=== PATIENT | female | born 1935 | race Caucasian/White ===

== ENCOUNTER 2016-06-18 16:47 | Emergency (ER) | payer MEDICARE ==
[2016-06-18 17:20] LABS: Hemoglobin 11.2 gm/dL (12.5-16.0); Mean Corpuscular Hemoglobin 27.1 pg (27-31); Mean Corpuscular Hgb Conc 31.1 g/dl (32-36); Mean Platelet Volume 8.7 fl (6.0-9.5); Neutrophil # 10.8 K/mm3 (1.3-6.0); Neutrophil % 82.3 % (42-75.0); Platelet Count 239 K/mm3 (150-450); Red Blood Count 4.14 M/mm3 (4.2-5.4); Red Cell Distribution Width 14.6 % (11.5-14.0); White Blood Count 13.1 K/mm3 (4.0-10.5)
--- NOTE | 2016-06-18 17:24 | ERNOTE ---
Dyspnea - General Presenting Symptoms: shortness of breath Time Seen by Provider: 06/18/16 17:06 Source: patient, family Exam Limitations: no limitations - Immun/Allergies/Home Medications Immunizations: IMMUNIZATION HX Immunizations Up to Date Yes History of Influenza Vaccine Yes Hx Pneumococcal Vaccination No Allergies/Adverse Reactions: Allergies ibuprofen Adverse Reaction (Verified 06/18/16 16:56) Home Medications: HOME MEDICATIONS Acetaminophen [Mapap] 500 mg PO DAILY 05/20/14 [Last Taken 05/20/14 12:00] Albuterol Sulfate [Proair Hfa] 2 puff IH Q4H PRN 05/20/14 [Last Taken Unknown] Ascorbic Acid [Vitamin C] 250 mg PO DAILY 05/20/14 [Last Taken 05/20/14 07:00] Aspirin [Aspirin Chewable] 81 mg PO DAILY 05/20/14 [Last Taken 05/20/14 07:00] Budesonide/Formoterol Fumarate [Symbicort 160-4.5 Mcg Inhaler] 2 puff IH BID 12/25 [Last Taken 05/20/14 17:00] Escitalopram Oxalate [Lexapro] 10 mg PO BID 05/20/14 [Last Taken 05/20/14 17:00] Isosorbide Mononitrate [Imdur] 120 mg PO BID 05/20/14 [Last Taken 05/20/14 07:00 ] Metoprolol Succinate [Toprol Xl] 50 mg PO DAILY 05/20/14 [Last Taken 05/20/14 07 :00] Pantoprazole Sodium [Protonix] 40 mg PO DAILY 05/20/14 [Last Taken 05/20/14 07: 00] Potassium Chloride [Klor-Con 10] 10 meq PO DAILY 05/20/14 [Last Taken 05/20/14 07:00] Simvastatin [Zocor] 20 mg PO HS 05/20/14 [Last Taken 05/20/14 20:00] Tiotropium [place] [Spiriva] 1 cap IH DAILY 05/20/14 [Last Taken 05/20/14 08:00] Ubidecarenone [Coenzyme Q10] 1 cap PO DAILY 05/20/14 [Last Taken 05/20/14 07:00] amLODIPine BESYLATE [Norvasc] 5 mg PO DAILY 05/20/14 [Last Taken 05/20/14 07:00] hydrOXYzine HCL [Atarax] 25 mg PO HS 05/20/14 [Last Taken 05/20/14 20:00] traZODone HCL [Desyrel] 50 mg PO HS PRN 05/20/14 [Last Taken 05/20/14 20:00] Calcium Carbonate [Tums] 500 mg PO DAILY 05/21/14 [Last Taken 05/20/14 07:00] Multivitamin [Multi-Vitamin Daily] 1 each PO DAILY 05/21/14 [Last Taken 07:00] Albuterol Sulfate/Ipratropium [Duoneb 2.5-0.5MG/3ML Soln] 3 ml IH Q6HRT #14 nebu 05/24/14 [Last Taken Unknown] Clorazepate Dipotassium [Tranxene] 3.75 mg PO HS 06/18/16 [Last Taken Unknown] Levofloxacin [Levaquin] 500 mg PO DAILY #7 tab 06/18/16 [Last Taken Unknown] Zolpidem Tartrate [Ambien] 2.5 mg PO HS PRN 06/18/16 [Last Taken Unknown] predniSONE [Prednisone] 3 tab PO DAILY #18 tab 06/18/16 [Last Taken Unknown] - History of Present Illness Narrative: Patient has a history of COPD and is on home O2 (2 1/2 liter at rest 3l with activity). 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 He started her on prednisone qod and changed her spiriva to another inhaler. She has been off antibiotics for about two weeks, states that she gets worse a lot when she gets off antibiotics. 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 Denies: fever/chills, sweating, chest pain/discomfort Prior Treatment: Reports: recently seen, previous episodes. Denies: currently on antibiotics Review of Systems - Review of Systems Constitutional: Present: See HPI. Absent: fever ENT: Present: nasal drainage. Absent: sore throat Respiratory: Present: See HPI, shortness of breath, cough Cardiology: Present: See HPI. Absent: chest pain Gastrointestinal/Abdominal: Absent: nausea, vomiting, abdominal pain Neurological: Present: headache - Patient's Past Medical History Patient History - Medical: Anxiety, GERD, Other Patient History - Cardiac/Respiratory: Asthma, CHF, COPD, Hypertension, Myocardial Infarction, Home O2 Use Patient History - Cancer: Breast Patient History - Surgical Procedures: Cancer Surgery, Cataracts, Other Patient History - Other: None - Social History Living Situations: home Abuse History: No History of abuse Psych History: Hx of Anxiety, Hx of Depression Smoking Status: Former smoker - quit 2006, 50py Alcohol Use: none Drug Use: none - Immunizations Immunizations Up to Date: Yes Hx Pneumococcal Vaccination: No History of Influenza Vaccine: Yes Physical Exam - Physical Exam General Appearance: Present: wd/wn, alert, no apparent distress Ears, Nose, Throat: Present: normal pharynx Respiratory: Present: respiratory distress - increased rate, decreased breath sounds - very Cardiovascular/Chest: Present: regular rate, rhythm Gastrointestinal/Abdominal: Present: nontender, nondistended, soft Extremity Exam: Present: no edema Neurological Exam: Present: alert, oriented, normal mood/affect Skin Exam: Present: normal color, warm/dry ED Progress - Results and Orders Patient's Lab Results:: I have reviewed the patient's lab results. - Vital Signs Patient's Vital Signs:: I have reviewed the patient's vital signs. Vital Signs: Vital Signs 06/18/16 16:49 Temperature 37.5 C Pulse Rate 107 H Respiratory 24 H Rate Blood Pressure 173/101 O2 Sat by Pulse 98 Oximetry - EKG EKG: NSR - sinustachycardia, unchanged from 05/2014 ecept for rate, other - enlarged P-waves EKG read: Interp. by me - X-Ray X-Ray #1 X-Ray: chest - hyperinflated, chronic changes, no infiltrate Interpretation: Interp. by me - Progress/Reassessment Chief Complaint: Dyspnea Progress Note-Subjective: 06/18/16 18:28 discussed results with patient and family 06/18/16 18:33 per [facility] pharmacy, patient had levaquin in April, doxycycline in May Departure Clinical Impression: COPD exacerbation - Departure Disposition: Home self-care Condition: Fair Instructions: Chronic Obstructive Pulmonary Disease Exacerbation, [id number] Additional Instructions: call Dr Meredith tomorrow for a follow up appointment Referrals: Alex Meredith MD [Associate] - Prescriptions: Levofloxacin [Levaquin] 500 mg PO DAILY #7 tab predniSONE [Prednisone] 3 tab PO DAILY #18 tab
[2016-06-18 17:33] LABS: Albumin * 3.7 gm/dl (3.4-5.0); Anion Gap 13.3 mmol/L (6.8-13.8); BUN/Creatinine Ratio 15.9 (9.0-21.6); Bilirubin, Total 0.3 mg/dL (0.0-1.1); Ca. Corrected For Albumin 9.1 mg/dL (8.4-10.2); Calcium * 9.2 mg/dL (7.9-10.9); Carbon Dioxide 29.1 mmol/L (24-32.6); Potassium 4.4 mmol/L (3.4-4.6); Total Protein 7.5 gm/dL (6.2-8.2)
[2016-06-18 17:40] LABS: BNP * 454 pg/mL (5-550); Troponin I Less than 0.017 ng/ml (0.00-0.10)
[2016-06-18] MEDS ORDERED: predniSONE 20 MG TABLET PO ONE (18:27)
[2016-06-18] MEDS ORDERED: predniSONE 20 MG TABLET ONE (18:32)
[2016-06-18] MEDS ORDERED: LEVOFLOXACIN 500 MG TABLET PO ONE (18:32)
[2016-06-18] MEDS ORDERED: LEVOFLOXACIN 500 MG TABLET ONE (18:32)
[2016-06-18 18:59] VITALS: BP 150/87
== END 2016-06-18 18:55 | disposition home or self-care (01) ==
LOC: ER 16:47
DX: J44.1 Chronic obstructive pulmonary disease with (acute) exacerbation (principal); Z85.3 Personal history of malignant neoplasm of breast; K21.9 Gastro-esophageal reflux disease without esophagitis; J45.909 Unspecified asthma, uncomplicated; F41.9 Anxiety disorder, unspecified; F32.9 Major depressive disorder, single episode, unspecified

== ENCOUNTER 2016-11-01 11:18 | Emergency (ER) | payer MEDICARE ==
[2016-11-01 11:53] LABS: Hematocrit 37.4 % (37.0-47.0); Hemoglobin 11.8 gm/dL (12.5-16.0); Mean Cell Volume 88.6 fl (78-100); Mean Corpuscular Hgb Conc 31.6 g/dl (32-36); Mean Platelet Volume 8.9 fl (6.0-9.5); Neutrophil # 11.8 K/mm3 (1.3-6.0); Platelet Count 294 K/mm3 (150-450); Red Blood Count 4.22 M/mm3 (4.2-5.4); White Blood Count 13.1 K/mm3 (4.0-10.5)
[2016-11-01] MEDS ORDERED: LEVALBUTEROL HCL 1.25 MG/3 ML AMPUL IH ONE ×2 (12:05→12:14)
[2016-11-01] MEDS ORDERED: predniSONE 20 MG TABLET PO ONE (12:05)
[2016-11-01 12:11] LABS: ALT 19 U/L (19-67); AST 17 U/L (0-48); Albumin * 3.6 gm/dl (3.4-5.0); Alkaline Phosphatase * 57 U/L (50-170); Anion Gap 12.1 mmol/L (6.8-13.8); BNP * 92 pg/mL (5-550); BUN/Creatinine Ratio 15.9 (9.0-21.6); Bilirubin, Total 0.4 mg/dL (0.0-1.1); Blood Urea Nitrogen 11 mg/dL (3-23); Ca. Corrected For Albumin 9.2 mg/dL (8.4-10.2); Calcium * 9.2 mg/dL (7.9-10.9); Carbon Dioxide 27.6 mmol/L (24-32.6); Chloride 98 mmol/L (97-106); Glucose * 129 mg/dL (70-110); Potassium 4.7 mmol/L (3.4-4.6); Sodium 133 mmol/L (132-142); Total Protein 7.3 gm/dL (6.2-8.2); Troponin I Less than 0.017 ng/ml (0.00-0.10)
[2016-11-01] MEDS ORDERED: predniSONE 20 MG TABLET ONE (12:14)
--- OUTSIDE RECORDS SUMMARY | 2016-11-01 12:59 | XMS REPORT | Continuity of Care Document ---
:1935 Author Organization [facility] [place] [address] Care Team Providers Name Role Phone Shavonne Yeager Primary Care Provider [phone] Source Comments This disclosure is being made pursuant to the [employer] program and maynot contain all information available regarding this patient.[facility] Active Allergies and Adverse Reactions Allergen Noted Date Severity Reactions Comments Ibuprofen 09/26/2015 High Other (See Comments),Bleeding Current Medications Be aware that medications may not be up to date as of this document. Alwaysverify current medications with the patient. Prescription Sig. Disp. Refills Start Date End Date Status acetaminophen (TYLENOL) Take 1,000 mg Active 500 MG tablet by mouth 3 (three) times daily. aspirin low dose 81 MG Chew 81 mg by Active CHEW mouth daily. clorazepate (TRANXENE) Take 7.5 mg by Active 7.5 MG tablet mouth 2 (two) times daily. diphenhydrAMINE Take 50 mg by Active (BENADRYL) 50 MG capsule mouth as needed. guaifenesin (ROBITUSSIN) Take 10 mLs by 05/14/2014 Active 100 MG/5ML syrup mouth as needed. isosorbide mononitrate Take 60 mg by Active (IMDUR) 120 MG 24 hr mouth 2 (two) tablet times daily. 1 and 1/2 tabs in am and 1/2 tab at night metoprolol succinate Take 50 mg by Active (TOPROL-XL) 50 MG 24 hr mouth daily. tablet pantoprazole (PROTONIX) Take 40 mg by Active 40 MG tablet mouth daily. potassium chloride Take 10 mEq by Active (K-TAB, KLOR-CON) 10 MEQ mouth daily. tablet simvastatin (ZOCOR) 20 MG Take 20 mg by Active tablet mouth nightly. trolamine salicylate Apply Active (ASPERCREME) 10 % cream topically as needed. SPIRIVA RESPIMAT 2.5 2 puffs once 12/16/2015 Active MCG/ACT AERS inhaler daily. zolpidem (AMBIEN) 5 MG 7.5 mg as 12/19/2015 Active tablet needed. predniSONE (DELTASONE) 10 10 mg every 07/06/2016 Active MG tablet other day. BREO ELLIPTA 200-25 1 puff once 06/25/2016 Active MCG/INH AEPB inhaler daily. ipratropium-albuterol 06/27/2016 Active (DUONEB) 0.5-2.5 (3) MG/3ML SOLN clobetasol (TEMOVATE) APPLY TOPICALLY 4 09/12/2016 Active 0.05 % external solution TWO TIMES A DAY TO THE AFFECTED SCALP AREA NEEDED azithromycin (ZITHROMAX) Take 250 mg by 09/06/2016 Active 250 MG tablet mouth 3 (three) times a week. Multiple Take 1 tablet Active Vitamins-Minerals by mouth daily. (MULTIVITAMIN ADULT PO) albuterol (PROAIR Inhale 2 puffs Active HFA;PROVENTIL into the lungs HFA;VENTOLIN HFA) 108 (90 every 4 (four) Base) MCG/ACT inhaler hours as needed for Wheezing. clopidogrel (PLAVIX) 75 09/26/2016 Active MG tablet fluconazole (DIFLUCAN) 10/03/2016 Active 150 MG tablet HYDROcodone-acetaminophen 10/03/2016 Active (NORCO) 5-325 MG per tablet ketoconazole (NIZORAL) 2 10/03/2016 Active % shampoo MethylPREDNISolone Follow package 1 Package 0 10/06/2016 Active (MEDROL) 4 MG dosepak directions. doxycycline (VIBRA-TABS) Take 1 tab oral 28 tablet 0 10/06/2016 Active 100 MG tablet daily for 10 days Hospital, Clinic, or Other Ordered Dose Route Frequency Start Date End Date Status Facility Administered Medication methylPREDNISolone sodium 125mg IM Once 10/06/2016 10/06/2016 Ended succinate (SOLU-MEDROL) injection Active Problems Problem Noted Date Protein-calorie malnutrition, moderate (HCC) 05/19/2014 COPD (chronic obstructive pulmonary disease) (HCC) 05/08/2014 Respiratory failure, rdomj-cr-adhlovi (HCC) 05/07/2014 Most Recent Encounters Date Type Specialty Providers Description 10/06/2016 Office Visit Family Medicine Lissette Rausch, 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 (HCC) (Primary Dx) 10/05/2016 Ophth Exam Ophthalmology Suman Graham 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); Hollenhorst plaque, left eye; 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; Hypertensive retinopathy of both eyes; Artificial lens present; Entropion of right lower eyelid 09/25/2016 Telephone Ophthalmology Annie Blair, COA Advice Only 09/24/2016 Office Visit General Surgery Suman Graham Bilateral carotid artery RMD stenosis (Primary Dx) Gerard Tiwari DO 09/20/2016 Abstract General Surgery Jamilah Rivas RN 09/03/2016 Telephone Ophthalmology Emely Almodovar [facility] Results 08/20/2016 Ophth Exam Ophthalmology Suman Graham 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); Hollenhorst plaque, left eye; 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; Hypertensive retinopathy of both eyes; Artificial lens present; Entropion of right lower eyelid; Blepharitis of upper and lower eyelids of both eyes, unspecified type; Distichiasis 08/20/2016 Telephone Ophthalmology Emely Almodovar [facility] Appointment Social History Tobacco Use Types Packs/Day Years Used Date Former Smoker Quit: 06/01/2006 Smokeless Tobacco: Never Used Alcohol Use Drinks/Week oz/Week Comments No 0 Standard drinks or equivalent 0.0 Last Filed Vital Signs Vital Sign Reading Time Taken Blood Pressure 130/74 10/06/2016 10:25 AM CDT Pulse 81 10/06/2016 10:25 AM CDT Temperature 36 C (96.8 F) 10/06/2016 10:25 AM CDT Respiratory Rate 24 10/06/2016 10:25 AM CDT Height 1.524 m (5') 10/06/2016 10:25 AM CDT Weight 45.36 kg (100 lb) 10/06/2016 10:25 AM CDT Body Mass Index 19.53 10/06/2016 10:25 AM CDT Oxygen Saturation 97% 10/06/2016 10:25 AM CDT Plan of Care Date Type Specialty Providers Description 11/23/2016 Appointment Ophthalmology Suman Graham MD [address] [place] [address] [phone] (Fax) Health Maintenance Due Date Last Done Comments Tetanus/Pertussis (1 - Tdap) 1953 Well Adult Visit 1984 Zoster Vaccine 60+ 1994 Bone Density 12/30/1999 Pneumococcal Low/Medium Risk 65+ (1 of 2 - PCV13) 12/30/1999 Influenza Immunization (#1) 2016 Results from Last 3 Months Intravitreal Injection, Pharmacologic Agent - OS - Left Eye (10/05/2016 11:46 AM ) Narrative Emely Almodovar 10/05/2016 11:46 AM OS Avastin Intravit Inj - Left Eye Date/Time: 10/05/2016 11:35 AM Performed by: SUMAN GRAHAM Authorized by: SUMAN GRAHAM CAROTID DUPLEX SCAN BILAT (08/31/2016 12:05 PM) [place] [address] Carotid Duplex Report Patient Name: LISSETTE BROWN LPatient ID: [id number] : [id number] Date: 08/31/2016 12:05:49 PM Gender: FAccession #: [id number] BSA: Weight(Kg): Account #: Procedures: Arterial Report: A carotid duplex ultrasound was performed bilaterally using Pulse Wave Color Flow Doppler and B-mode vascular imaging. Indications: hollenhorst plaque lt eye. Measurements: Right Carotid MeasurementValueNormal Range RT CCA PRX PSV 57.3 cm/secs RT CCA PRX EDV 13.0 cm/secs RT CCA MID PSV 65.0 cm/secs RT CCA MID EDV 16.7 cm/secs RT CCA DIST PSV55.1 cm/secs RT CCA DIST EDV15.2 cm/secs RT ICA PROX PSV44.0 cm/secs RT ICA PROX EDV16.8 cm/secs RT ICA MID PSV 73.9 cm/secs RT ICA MID EDV 25.4 cm/secs RT ICA DIST PSV69.3 cm/secs RT ICA DIST EDV19.5 cm/secs RT VERT PSV34.6 cm/secs RT VERT EDV10.6 cm/secs RT ICA/CCA 1.3ratio Left Carotid MeasurementValueNormal Range LT CCA PRX PSV 55.7 cm/sec LT CCA PRX EDV 14.3 cm/sec LT CCA MID PSV 59.6 cm/sec LT CCA MID EDV 14.3 cm/sec LT CCA DIST PSV47.4 cm/sec LT CCA DIST EDV14.8 cm/sec LT ICA PROX PSV47.0 cm/sec LT ICA PROX EDV13.9 cm/sec LT ICA MID PSV 57.5 cm/sec LT ICA MID EDV 16.2 cm/sec LT ICA DIST PSV45.1 cm/sec LT ICA DIST EDV15.1 cm/sec LT VERT PSV24.8 cm/secs LT VERT EDV6.3cm/secs LT ICA/CCA 1.2ratio Findings: Rt Vertebral Artery: The right vertebral artery is patent with antegrade flow. Lt Vertebral Artery: The left vertebral artery is patent with antegrade flow. Conclusions: Mild stenosis (1-39%) noted in the right internal carotid artery (PSV <110 cm/sec, ICA/CCA <1.8). Mild stenosis (1-39%) noted in the left internal carotid artery (PSV <110 cm/sec, ICA/CCA <1.8). Consider vascular consultation. Irregular plaque potential sourse for embolus. Consider further workup for other sourses as well. Pt may be surgical candidate for carotid surgery. Electronically Signed By: Gerard Tiwari 2016-09-03 07:50:04 CDT CC: CC: Carotid Arteries Procedure Note Maxim, External Ris In - Mon Sep 03, 2016 7:51 [place] [address] Carotid Duplex Report Patient Name: LISSETTE BROWN LPatient ID: [id number] : [id number] Date: 08/31/2016 12:05:49 PM Gender: FAccession #: [id number] BSA: Weight(Kg): Account #: Procedures: Arterial Report: A carotid duplex ultrasound was performed bilaterally using Pulse Wave Color Flow Doppler and B-mode vascular imaging. Indications: hollenhorst plaque lt eye. Measurements: Right Carotid Measurement Value Normal Range RT CCA PRX PSV 57.3 cm/secs RT CCA PRX EDV 13.0 cm/secs RT CCA MID PSV 65.0 cm/secs RT CCA MID EDV 16.7 cm/secs RT CCA DIST PSV 55.1 cm/secs RT CCA DIST EDV 15.2 cm/secs RT ICA PROX PSV 44.0 cm/secs RT ICA PROX EDV 16.8 cm/secs RT ICA MID PSV 73.9 cm/secs RT ICA MID EDV 25.4 cm/secs RT ICA DIST PSV 69.3 cm/secs RT ICA DIST EDV 19.5 cm/secs RT VERT PSV 34.6 cm/secs RT VERT EDV 10.6 cm/secs RT ICA/CCA 1.3 ratio Left Carotid Measurement Value Normal Range LT CCA PRX PSV 55.7 cm/sec LT CCA PRX EDV 14.3 cm/sec LT CCA MID PSV 59.6 cm/sec LT CCA MID EDV 14.3 cm/sec LT CCA DIST PSV 47.4 cm/sec LT CCA DIST EDV 14.8 cm/sec LT ICA PROX PSV 47.0 cm/sec LT ICA PROX EDV 13.9 cm/sec LT ICA MID PSV 57.5 cm/sec LT ICA MID EDV 16.2 cm/sec LT ICA DIST PSV 45.1 cm/sec LT ICA DIST EDV 15.1 cm/sec LT VERT PSV 24.8 cm/secs LT VERT EDV 6.3 cm/secs LT ICA/CCA 1.2 ratio Findings: Rt Vertebral Artery: The right vertebral artery is patent with antegrade flow. Lt Vertebral Artery: The left vertebral artery is patent with antegrade flow. Conclusions: Mild stenosis (1-39%) noted in the right internal carotid artery (PSV <110 cm/sec, ICA/CCA <1.8). Mild stenosis (1-39%) noted in the left internal carotid artery (PSV <110 cm/sec, ICA/CCA <1.8). Consider vascular consultation. Irregular plaque potential sourse for embolus. Consider further workup for other sourses as well. Pt may be surgical candidate for carotid surgery. Electronically Signed By: Gerard Tiwari 2016-09-03 07:50:04 CDT CC: CC: Carotid Arteries TTE (Transthoracic Echo) Complete (08/31/2016 11:22 AM) [place] [address] Echocardiographic Report Patient Name: LISSETTE BROWN LPatient ID: [id number] : [id number] Date: 08/31/2016 11:22:37 AM Gender: FAccession #: [id number] BSA: 1.38Weight(Kg): 45.4 Quality: Good Procedures: Echocardiographic Report: Transthoracic echocardiogram with complete 2D, M-Mode, color flow and Doppler examination. Indications: Hollenhorst plaque. Measurements: 2D/M Mode MeasurementValueNormal Range IVSd MM1.0[ 0.6 - 0.9 ] cm IVSs MM1.10 [ 1.00 - 5.00 ] cm LVIDd MM 3.4[ 3.9 - 5.3 ] cm LVIDs MM 2.2[ 2.3 - 3.9 ] cm LVPWd MM 0.9[ 0.6 - 1.0 ] cm LVPWs MM 1.1[ 1.0 - 5.0 ] cm AoR Diam MM2.90 [ 2.60 - 3.70 ] cm LA Dimen MM2.9[ 2.7 - 3.8 ] cm LA/Ao MM 1.00 ratio ACS MM 1.8cm EDV MM 58.5 [ 56.0 - 104.0 ] ml ESV MM 18.5 [ 19.0 - 49.0 ] ml SV MM40.0 cm3 LV FS MM 37.5 [ 27.0 - 45.0 ] percent EF MM68.4 [ 55.0 - 70.0 ] percent LA Ipwane84.3 [ 22.0 - 52.0 ] ml TR Peak Faj900.0[ 100.0 - 280.0 ] cm/sec TR Peak PG 32.0 mmHg Doppler MeasurementValueNormal Range AV Mean PG 4.0[ 2.0 - 4.0 ] mmHg AV Peak Yzc379.0[ 100.0 - 170.0 ] cm/sec AV Peak PG 8.0[ 2.0 - 9.0 ] mmHg AL VTI2.1[ 2.0 - 4.0 ] cm2 AV VTI 23.8 cm LVOT Diam1.9[ 1.7 - 2.1 ] cm LVOT Jidd946.7 LVOT Mean Vel66.5 [ 60.0 - 80.0 ] cm/sec LVOT Mean PG 2.0[ 1.0 - 3.0 ] mmHg LVOT Peak Vel91.7 [ 70.0 - 110.0 ] cm/sec LVOT Peak PG 3.0[ 2.0 - 6.0 ] mmHg LVOT VTI 17.3 [ 20.0 - 30.0 ] cm MV E Peak Ron103.0[ 60.0 - 130.0 ] cm/sec MV Decel Time74.0 [ 104.0 - 258.0 ] msec PV Peak Vel98.3 [ 40.0 - 80.0 ] cm/sec PV Peak PG 3.0mmHg Findings: Left Ventricle: Normal left ventricular systolic function. No regional wall motion abnormalities. Ejection fraction is estimated at 60 %. Wall thickness is increased consistent with mild concentric left ventricular hypertrophy. Right Ventricle: Normal right ventricular size. Normal right ventricular function. Left Atrium: The left atrium is normal in size. Right Atrium: The right atrium is normal in size. Atrial Septum: Normal atrial septum. Mitral Valve: Normal appearance and function of the mitral valve. Aortic Valve: Normal appearance and function of the trileaflet aortic valve. No significant aortic stenosis or insufficiency. Normal trileaflet aortic valve structure. The aortic valve appears to open and close adequately. Tricuspid Valve: Normal appearance and function of the tricuspid valve. Normal right ventricular systolic pressure. Pulmonic Valve: Normal pulmonic valve appearance and function. Pericardium: Normal pericardium with no significant pericardial effusion or masses seen. Aorta: Normal aortic root. IVC: Normal size and normal respiratory collapse consistent with normal right atrial pressure (<5 mmHg). Pulmonary Artery: Normal pulmonary artery size. Normal pulmonary artery pressures. Conclusions: Normal left ventricular systolic function. No regional wall motion abnormalities. Ejection fraction is estimated at 60 %. Wall thickness is increased consistent with mild concentric left ventricular hypertrophy. Normal appearance and function of the mitral valve. Normal appearance and function of the trileaflet aortic valve. No significant aortic stenosis or insufficiency. Normal trileaflet aortic valve structure. The aortic valve appears to open and close adequately. Normal appearance and function of the tricuspid valve. Normal right ventricular systolic pressure. Electronically Signed By: Manas Spencer M.D. 2016-09-04 22:05:02 CDT CC: CC: Procedure Note Maxim, External Ris In - SatSep 04, 2016 10:06 [place] [address] Echocardiographic Report Patient Name: LISSETTE BROWN LPatient ID: [id number] : [id number] Date: 08/31/2016 11:22:37 AM Gender: FAccession #: [id number] BSA: 1.38Weight(Kg): 45.4 Quality: Good Procedures: Echocardiographic Report: Transthoracic echocardiogram with complete 2D, M-Mode, color flow and Doppler examination. Indications: Hollenhorst plaque. Measurements: 2D/M Mode Measurement Value Normal Range IVSd MM 1.0 [ 0.6 - 0.9 ] cm IVSs MM 1.10 [ 1.00 - 5.00 ] cm LVIDd MM 3.4 [ 3.9 - 5.3 ] cm LVIDs MM 2.2 [ 2.3 - 3.9 ] cm LVPWd MM 0.9 [ 0.6 - 1.0 ] cm LVPWs MM 1.1 [ 1.0 - 5.0 ] cm AoR Diam MM 2.90 [ 2.60 - 3.70 ] cm LA Dimen MM 2.9 [ 2.7 - 3.8 ] cm LA/Ao MM 1.00 ratio ACS MM 1.8 cm EDV MM 58.5 [ 56.0 - 104.0 ] ml ESV MM 18.5 [ 19.0 - 49.0 ] ml SV MM 40.0 cm3 LV FS MM 37.5 [ 27.0 - 45.0 ] percent EF MM 68.4 [ 55.0 - 70.0 ] percent LA Volume 26.3 [ 22.0 - 52.0 ] ml TR Peak Obey 285.0 [ 100.0 - 280.0 ] cm/sec TR Peak PG 32.0 mmHg Doppler Measurement Value Normal Range AV Mean PG 4.0 [ 2.0 - 4.0 ] mmHg AV Peak Obey 137.0 [ 100.0 - 170.0 ] cm/sec AV Peak PG 8.0 [ 2.0 - 9.0 ] mmHg AL VTI 2.1 [ 2.0 - 4.0 ] cm2 AV VTI 23.8 cm LVOT Diam 1.9 [ 1.7 - 2.1 ] cm LVOT Area 444.7 LVOT Mean Obey 66.5 [ 60.0 - 80.0 ] cm/sec LVOT Mean PG 2.0 [ 1.0 - 3.0 ] mmHg LVOT Peak Obey 91.7 [ 70.0 - 110.0 ] cm/sec LVOT Peak PG 3.0 [ 2.0 - 6.0 ] mmHg LVOT VTI 17.3 [ 20.0 - 30.0 ] cm MV E Peak Obey 104.0 [ 60.0 - 130.0 ] cm/sec MV Decel Time 74.0 [ 104.0 - 258.0 ] msec PV Peak Obey 98.3 [ 40.0 - 80.0 ] cm/sec PV Peak PG 3.0 mmHg Findings: Left Ventricle: Normal left ventricular systolic function. No regional wall motion abnormalities. Ejection fraction is estimated at 60 %. Wall thickness is increased consistent with mild concentric left ventricular hypertrophy. Right Ventricle: Normal right ventricular size. Normal right ventricular function. Left Atrium: The left atrium is normal in size. Right Atrium: The right atrium is normal in size. Atrial Septum: Normal atrial septum. Mitral Valve: Normal appearance and function of the mitral valve. Aortic Valve: Normal appearance and function of the trileaflet aortic valve. No significant aortic stenosis or insufficiency. Normal trileaflet aortic valve structure. The aortic valve appears to open and close adequately. Tricuspid Valve: Normal appearance and function of the tricuspid valve. Normal right ventricular systolic pressure. Pulmonic Valve: Normal pulmonic valve appearance and function. Pericardium: Normal pericardium with no significant pericardial effusion or masses seen. Aorta: Normal aortic root. IVC: Normal size and normal respiratory collapse consistent with normal right atrial pressure (<5 mmHg). Pulmonary Artery: Normal pulmonary artery size. Normal pulmonary artery pressures. Conclusions: Normal left ventricular systolic function. No regional wall motion abnormalities. Ejection fraction is estimated at 60 %. Wall thickness is increased consistent with mild concentric left ventricular hypertrophy. Normal appearance and function of the mitral valve. Normal appearance and function of the trileaflet aortic valve. No significant aortic stenosis or insufficiency. Normal trileaflet aortic valve structure. The aortic valve appears to open and close adequately. Normal appearance and function of the tricuspid valve. Normal right ventricular systolic pressure. Electronically Signed By: Manas Spencer M.D. 2016-09-04 22:05:02 CDT CC: CC:
--- NOTE | 2016-11-01 13:27 | ERNOTE ---
Dyspnea - General Presenting Symptoms: shortness of breath, difficulty of breathing, wheezing Time Seen by Provider: 11/01/16 11:46 Exam Limitations: no limitations - Immun/Allergies/Home Medications Immunizations: IMMUNIZATION HX Immunizations Up to Date Yes History of Influenza Vaccine Yes Hx Pneumococcal Vaccination Yes Allergies/Adverse Reactions: Allergies ibuprofen Adverse Reaction (Verified 06/18/16 16:56) Home Medications: HOME MEDICATIONS Acetaminophen [Mapap] 500 mg PO DAILY 05/20/14 [Last Taken 05/20/14 12:00] Albuterol Sulfate [Proair Hfa] 2 puff IH Q4H PRN 05/20/14 [Last Taken Unknown] Ascorbic Acid [Vitamin C] 250 mg PO DAILY 05/20/14 [Last Taken 05/20/14 07:00] Aspirin [Aspirin Chewable] 81 mg PO DAILY 05/20/14 [Last Taken 05/20/14 07:00] Budesonide/Formoterol Fumarate [Symbicort 160-4.5 Mcg Inhaler] 2 puff IH BID 12/25 [Last Taken 05/20/14 17:00] Escitalopram Oxalate [Lexapro] 10 mg PO BID 05/20/14 [Last Taken 05/20/14 17:00] Isosorbide Mononitrate [Imdur] 120 mg PO BID 05/20/14 [Last Taken 05/20/14 07:00 ] Metoprolol Succinate [Toprol Xl] 50 mg PO DAILY 05/20/14 [Last Taken 05/20/14 07 :00] Pantoprazole Sodium [Protonix] 40 mg PO DAILY 05/20/14 [Last Taken 05/20/14 07: 00] Potassium Chloride [Klor-Con 10] 10 meq PO DAILY 05/20/14 [Last Taken 05/20/14 07:00] Simvastatin [Zocor] 20 mg PO HS 05/20/14 [Last Taken 05/20/14 20:00] Tiotropium [place] [Spiriva] 1 cap IH DAILY 05/20/14 [Last Taken 05/20/14 08:00] Ubidecarenone [Coenzyme Q10] 1 cap PO DAILY 05/20/14 [Last Taken 05/20/14 07:00] amLODIPine BESYLATE [Norvasc] 5 mg PO DAILY 05/20/14 [Last Taken 05/20/14 07:00] hydrOXYzine HCL [Atarax] 25 mg PO HS 05/20/14 [Last Taken 05/20/14 20:00] traZODone HCL [Desyrel] 50 mg PO HS PRN 05/20/14 [Last Taken 05/20/14 20:00] Calcium Carbonate [Tums] 500 mg PO DAILY 05/21/14 [Last Taken 05/20/14 07:00] Multivitamin [Multi-Vitamin Daily] 1 each PO DAILY 05/21/14 [Last Taken 07:00] Albuterol Sulfate/Ipratropium [Duoneb 2.5-0.5MG/3ML Soln] 3 ml IH Q6HRT #14 nebu 05/24/14 [Last Taken Unknown] Clorazepate Dipotassium [Tranxene] 3.75 mg PO HS 06/18/16 [Last Taken Unknown] Levofloxacin [Levaquin] 500 mg PO DAILY #7 tab 06/18/16 [Last Taken Unknown] Zolpidem Tartrate [Ambien] 2.5 mg PO HS PRN 06/18/16 [Last Taken Unknown] predniSONE [Prednisone] 3 tab PO DAILY #18 tab 06/18/16 [Last Taken Unknown] Acetylcysteine [Mucomyst 10%] 400 mg NEB TID #1 bottle 11/01/16 [Last Taken Unknown] Doxycycline Monohydrate 100 mg PO BID #20 tablet 11/01/16 [Last Taken Unknown] predniSONE [Deltasone] 20 mg PO BID #10 tablet 11/01/16 [Last Taken Unknown] - History of Present Illness Narrative: 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 She developed a worsening cough over the last day and became concerned and came in to make sure that she doesn't have pneumonia. Patient admits to having an over 72-amrc-nedr history of smoking and quit approximately 10 years ago. She describes her distress as at least moderate in intensity. 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 Initiating event: Reports: none Frequency of episodes: Reports: frequent episodes Modifying Factors - (Improves): Reports: albuterol Modifying Factors (Worsens): Reports: activity Associated Symptoms-Dyspnea: Reports: cough Review of Systems - Review of Systems Constitutional: Present: See HPI EYE: Present: no symptoms reported ENT: Present: no symptoms reported Respiratory: Present: See HPI, shortness of breath, cough, wheezing Cardiology: Present: no symptoms reported Gastrointestinal/Abdominal: Present: no symptoms reported Genitourinary: Present: no symptoms reported Musculoskeletal: Present: no symptoms reported Skin: Present: no symptoms reported Neurological: Present: no symptoms reported Endocrine: Present: no symptoms reported Hematologic/Lymphatic: Present: no symptoms reported Psych: Present: no symptoms reported - Patient's Past Medical History Patient History - Medical: Anxiety, GERD, Other Patient History - Cardiac/Respiratory: Asthma, CHF, COPD, Hypertension, Myocardial Infarction, Home O2 Use Patient History - Cancer: Breast Patient History - Surgical Procedures: Cancer Surgery, Cataracts, Other Patient History - Other: None - Social History Living Situations: home Abuse History: No History of abuse Psych History: Hx of Anxiety, Hx of Depression Smoking Status: Former smoker Alcohol Use: none Drug Use: none - Immunizations Immunizations Up to Date: Yes Hx Pneumococcal Vaccination: Yes History of Influenza Vaccine: Yes Physical Exam - Physical Exam General Appearance: Present: wd/wn, alert, moderate distress Eye Exam: Normal inspection: bilateral, PERRL: bilateral Ears, Nose, Throat: Present: normal ENT inspection, H, normal pharynx Neck: Present: normal inspection, nontender Respiratory: Present: no accessory muscle use, chest nontender, respiratory distress, crackles, wheezing Cardiovascular/Chest: Present: regular rate, rhythm, no murmur, normal peripheral pulses Gastrointestinal/Abdominal: Present: normal bowel sounds, nontender, nondistended, soft, no organomegaly Rectal Exam: Present: deferred Back Exam: Present: normal inspection, normal range of motion Extremity Exam: Present: normal inspection, non-tender, no edema, normal range of motion Neurological Exam: Present: alert, oriented, normal mood/affect Skin Exam: Present: normal color, warm/dry Lymphatic Exam: Present: no adenopathy ED Progress - Results and Orders Patient's Lab Results:: I have reviewed the patient's lab results. - Vital Signs Patient's Vital Signs:: I have reviewed the patient's vital signs. Vital Signs: Vital Signs 11/01/16 11/01/16 11/01/16 11:29 11:55 12:40 Temperature 36.9 C Pulse Rate 94 90 93 Respiratory 28 H 20 22 H Rate Blood Pressure 115/79 101/61 103/69 O2 Sat by Pulse 3 L 97 97 Oximetry - EKG EKG: NSR - X-Ray X-Ray #1 X-Ray: chest Interpretation: Interp. by me, Reviewed by me - Progress/Reassessment Chief Complaint: Dyspnea Departure Clinical Impression: COPD exacerbation - Departure Disposition: Home self-care Condition: Good Instructions: Chronic Obstructive Pulmonary Disease Exacerbation, Kejy-vb-Nupe Prescriptions: Acetylcysteine [Mucomyst 10%] 400 mg NEB TID #1 bottle Doxycycline Monohydrate 100 mg PO BID #20 tablet predniSONE [Deltasone] 20 mg PO BID #10 tablet
[2016-11-01 13:44] VITALS: BP 112/66
== END 2016-11-01 13:47 | disposition home or self-care (01) ==
LOC: ER 11:18
DX: J44.1 Chronic obstructive pulmonary disease with (acute) exacerbation (principal); Z87.891 Personal history of nicotine dependence; Z85.3 Personal history of malignant neoplasm of breast

== ENCOUNTER 2016-11-08 15:56 | Inpatient (IN) | payer MEDICARE ==
--- OUTSIDE RECORDS SUMMARY | 2016-11-08 16:19 | XMS REPORT | Continuity of Care Document ---
:1935 Author Organization [employer] [place] [address] Care Team Providers Name Role Phone Shavonne Yeager Primary Care Provider [phone] Source Comments This disclosure is being made pursuant to the [employer] program and maynot contain all information available regarding this patient.[facility] Active Allergies and Adverse Reactions Allergen Noted [...] 100 MG tablet daily for 10 days Active Problems Problem Noted Date Protein-calorie malnutrition, moderate (HCC) 05/19/2014 COPD (chronic obstructive pulmonary disease) (HCC) 05/08/2014 Respiratory failure, qmerv-ia-aicxkfm (HCC) 05/07/2014 Most Recent Encounters Date Type Specialty Providers Description 10/06/2016 Office Visit Family Medicine Lissette Rausch, COPD with acute DOG BARBER exacerbation (HCC) (Primary Dx) 10/05/2016 Ophth Exam Ophthalmology Suman Graham Branch retinal vein R, 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 (Primary Dx); Hollenhorst plaque, left eye; 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; Hypertensive retinopathy of both eyes; Artificial lens present; Entropion of right lower eyelid 09/25/2016 Telephone Ophthalmology Annie Blair COA Advice Only 09/24/2016 Office Visit General Surgery Suman Graham Bilateral carotid artery MD Cornelio stenosis (Primary Dx) Gerard Tiwari DO 09/20/2016 Abstract General Surgery Jamilah Rivas RN 09/03/2016 Telephone Ophthalmology Emely Almodovar UC Results 08/20/2016 Ophth Exam Ophthalmology Suman Graham Branch retinal vein MD Cornelio occlusion of left eye with macular edema [...] Description 11/23/2016 Appointment Ophthalmology Suman Graham MD [facility] [address] [address] [phone] (Fax) Health Maintenance Due Date Last Done [...] DUPLEX SCAN BILAT (08/31/2016 12:05 PM) [place] [address] Carotid Duplex Report Patient Name: LISSETTE BROWN LPatient ID: [id number] : [id number] Date: 08/31/2016 12:05:49 PM Gender: FAccession #: [id number] BSA: Weight(Kg): Account #: Procedures: Arterial Report: [...] Note Maxim, External Ris In - SatSep 03, 2016 7:51 [place] [address] Carotid Duplex Report Patient Name: LISSETTE BROWN LPatient ID: [id number] : [id number] Date: 08/31/2016 12:05:49 PM Gender: FAccession #: [id number] BSA: Weight(Kg): Account #: Procedures: Arterial Report: [...] TTE (Transthoracic Echo) Complete (08/31/2016 11:22 AM) [place] [address] Echocardiographic Report Patient Name: LISSETTE BROWN LPatient ID: [id number] : [id number] Date: 08/31/2016 11:22:37 AM Gender: FAccession #: [id number] BSA: 1.38Weight(Kg): 45.4 Quality: Good Procedures: Echocardiographic [...] [ 55.0 - 70.0 ] percent LA Xclire99.3 [ 22.0 - 52.0 ] ml TR Peak Jtk543.0[ 100.0 - 280.0 ] cm/sec TR Peak PG 32.0 mmHg Doppler MeasurementValueNormal Range AV Mean PG 4.0[ 2.0 - 4.0 ] mmHg AV Peak Uoo945.0[ 100.0 - 170.0 ] cm/sec AV Peak PG 8.0[ 2.0 - 9.0 ] mmHg AL VTI2.1[ 2.0 - 4.0 ] cm2 AV VTI 23.8 cm LVOT Diam1.9[ 1.7 - 2.1 ] cm LVOT Pcya083.7 LVOT Mean Vel66.5 [ 60.0 - 80.0 ] cm/sec LVOT Mean PG 2.0[ 1.0 - 3.0 ] mmHg LVOT Peak Vel91.7 [ 70.0 - 110.0 ] cm/sec LVOT Peak PG 3.0[ 2.0 - 6.0 ] mmHg LVOT VTI 17.3 [ 20.0 - 30.0 ] cm MV E Peak Ltf603.0[ 60.0 - 130.0 ] cm/sec MV Decel [...] - SatSep 04, 2016 10:06 [place] [address] Echocardiographic Report Patient Name: LISSETTE BROWN LPatient ID: [id number] : [id number] Date: 08/31/2016 11:22:37 AM Gender: FAccession #: [id number] BSA: 1.38Weight(Kg): 45.4 Quality: Good Procedures: Echocardiographic [...] Spencer M.D. 2016-09-04 22:05:02 CDT CC: CC: Insurance Payer Benefit Plan / Subscriber ID Type Phone Address Group MEDICARE MEDICARE A AND B [id number] [phone] [address] [place] [address] [facility] [employer] MEDICARE [id number] [phone] [address] [place] [address] [address] Hernan Lara y [phone] [place] [address]
[2016-11-08] MEDS ORDERED: ALBUTEROL SULFATE/IPRATROPIUM 3 ML NEBU IH ONE ×2 (16:24→16:30)
[2016-11-08] MEDS ORDERED: METHYLPREDNISOLONE SOD SUCC/PF 40 MG/ML VIAL IV ONE (16:24)
[2016-11-08] MEDS ORDERED: METHYLPREDNISOLONE SOD SUCC/PF 125 MG/2 ML VIAL ONE (16:32)
[2016-11-08 16:38] LABS: Hematocrit 36.3 % (37.0-47.0); Hemoglobin 11.7 gm/dL (12.5-16.0); Mean Cell Volume 88.1 fl (78-100); Mean Corpuscular Hemoglobin 28.4 pg (27-31); Mean Corpuscular Hgb Conc 32.2 g/dl (32-36); Mean Platelet Volume 8.4 fl (6.0-9.5); Neutrophil # 10.1 K/mm3 (1.3-6.0); Neutrophil % 79.3 % (42-75.0); Platelet Count 325 K/mm3 (150-450); Red Blood Count 4.12 M/mm3 (4.2-5.4); Red Cell Distribution Width 13.8 % (11.5-14.0); White Blood Count 12.8 K/mm3 (4.0-10.5)
--- NOTE | 2016-11-08 16:42 | ERNOTE ---
Time Seen by Provider: 11/08/16 16:05 Stated Complaint: RESPIRATORY PROBLEMS Presenting Symptoms:: cough Exam Limitations: no limitations Immunizations: IMMUNIZATION HX Immunizations Up to Date Yes History of Influenza Vaccine Yes Hx Pneumococcal Vaccination Yes Allergies/Adverse Reactions: Allergies ibuprofen Adverse Reaction (Verified 11/08/16 16:02) Home Medications: HOME MEDICATIONS Acetaminophen [Mapap] 500 mg PO DAILY 05/20/14 [Last Taken 05/20/14 12:00] Albuterol Sulfate [Proair Hfa] 2 puff IH Q4H PRN 05/20/14 [Last Taken Unknown] Ascorbic Acid [Vitamin C] 250 mg PO DAILY 05/20/14 [Last Taken 05/20/14 07:00] Aspirin [Aspirin Chewable] 81 mg PO DAILY 05/20/14 [Last Taken 05/20/14 07:00] Budesonide/Formoterol Fumarate [Symbicort 160-4.5 Mcg Inhaler] 2 puff IH BID 12/25 [Last Taken 05/20/14 17:00] Escitalopram Oxalate [Lexapro] 10 mg PO BID 05/20/14 [Last Taken 05/20/14 17:00] Isosorbide Mononitrate [Imdur] 120 mg PO BID 05/20/14 [Last Taken 05/20/14 07:00 ] Metoprolol Succinate [Toprol Xl] 50 mg PO DAILY 05/20/14 [Last Taken 05/20/14 07 :00] Pantoprazole Sodium [Protonix] 40 mg PO DAILY 05/20/14 [Last Taken 05/20/14 07: 00] Potassium Chloride [Klor-Con 10] 10 meq PO DAILY 05/20/14 [Last Taken 05/20/14 07:00] Simvastatin [Zocor] 20 mg PO HS 05/20/14 [Last Taken 05/20/14 20:00] Tiotropium [place] [Spiriva] 1 cap IH DAILY 05/20/14 [Last Taken 05/20/14 08:00] Ubidecarenone [Coenzyme Q10] 1 cap PO DAILY 05/20/14 [Last Taken 05/20/14 07:00] amLODIPine BESYLATE [Norvasc] 5 mg PO DAILY 05/20/14 [Last Taken 05/20/14 07:00] hydrOXYzine HCL [Atarax] 25 mg PO HS 05/20/14 [Last Taken 05/20/14 20:00] traZODone HCL [Desyrel] 50 mg PO HS PRN 05/20/14 [Last Taken 05/20/14 20:00] Calcium Carbonate [Tums] 500 mg PO DAILY 05/21/14 [Last Taken 05/20/14 07:00] Multivitamin [Multi-Vitamin Daily] 1 each PO DAILY 05/21/14 [Last Taken 07:00] Albuterol Sulfate/Ipratropium [Duoneb 2.5-0.5MG/3ML Soln] 3 ml IH Q6HRT #14 nebu 05/24/14 [Last Taken Unknown] Clorazepate Dipotassium [Tranxene] 3.75 mg PO HS 06/18/16 [Last Taken Unknown] Levofloxacin [Levaquin] 500 mg PO DAILY #7 tab 06/18/16 [Last Taken Unknown] Zolpidem Tartrate [Ambien] 2.5 mg PO HS PRN 06/18/16 [Last Taken Unknown] predniSONE [Prednisone] 3 tab PO DAILY #18 tab 06/18/16 [Last Taken Unknown] Acetylcysteine [Mucomyst 10%] 400 mg NEB TID #1 bottle 11/01/16 [Last Taken Unknown] Doxycycline Monohydrate 100 mg PO BID #20 tablet 11/01/16 [Last Taken Unknown] predniSONE [Deltasone] 20 mg PO BID #10 tablet 11/01/16 [Last Taken Unknown] - History of Present Ilness Narrative: This is an 80-year-old female with a history of COPD who was seen on November 01 in this facility for upper respiratory infection placed on doxycycline and prednisone. She felt slightly better initially and she presents back to the emergency room today stating that she is taking a turn for worse. He also increasingly short of breath with increased mucus production she denies any fevers or chills. Eyes any chest pains. On home O2 2-2.5 L of oxygen per nasal cannula. Review of Systems - Review of Systems Constitutional: Present: no symptoms reported EYE: Present: no symptoms reported ENT: Present: no symptoms reported Respiratory: Present: shortness of breath, cough, orthopnea Cardiology: Present: no symptoms reported Gastrointestinal/Abdominal: Present: no symptoms reported Genitourinary: Present: no symptoms reported Musculoskeletal: Present: no symptoms reported - Patient's Past Medical History Patient History - Medical: Anxiety, GERD, Other Patient History - Cardiac/Respiratory: Asthma, CHF, COPD, Hypertension, Myocardial Infarction, Home O2 Use Patient History - Cancer: Breast Patient History - Surgical Procedures: Cancer Surgery, Cataracts, Other Patient History - Other: None - Social History Living Situations: home Abuse History: No History of abuse Psych History: Hx of Anxiety, Hx of Depression Alcohol Use: none Drug Use: none - Immunizations Immunizations Up to Date: Yes Hx Pneumococcal Vaccination: Yes History of Influenza Vaccine: Yes Physical Exam - Physical Exam General Appearance: Present: wd/wn, alert, no apparent distress - and is wearing her nasal cannula and has 2 L of oxygen per nasal cannula at the time of examination. She is on home O2 at all times. Eye Exam: Normal inspection: bilateral, PERRL: bilateral, EOMI: bilateral Ears, Nose, Throat: Present: normal ENT inspection Neck: Present: normal inspection Respiratory: Present: other - patient has decreased breath sounds at both bases she has a right-sided end expiratory wheezes she does not have any rales or rhonchi. She is not in any respiratory distress when she is resting comfortably in her wheelchair however movement does make her orthopneic and dyspneic Cardiovascular/Chest: Present: regular rate, rhythm, no murmur, normal peripheral pulses Extremity Exam: Present: normal inspection - and is thin elderly female, normal range of motion Neurological Exam: Present: alert, oriented, normal mood/affect, no motor/ sensory deficits ED Progress - Results and Orders Patient's Lab Results:: I have reviewed the patient's lab results. - Vital Signs Patient's Vital Signs:: I have reviewed the patient's vital signs. Vital Signs: Vital Signs 11/08/16 16:00 Temperature 36.0 C L Pulse Rate 75 Respiratory 12 Rate Blood Pressure 104/66 O2 Sat by Pulse 96 Oximetry - X-Ray X-Ray #1 X-Ray: chest - Progress/Reassessment Chief Complaint: Upper Respiratory Symptoms Plan - Plan Plan: This patient is having a COPD exacerbation. The initial course of steroid was helpful however patient feels worse now. Dr. Varela was consulted for admission for COPD exacerbation and she will be admitted to the Med/surg floor for treatment Departure - Departure Clinical Impression: COPD exacerbation Disposition: [facility] Condition: Fair Referrals: Shavonne Yeager ARNP [Primary Care Provider] -
[2016-11-08 16:51] LABS: Albumin * 3.3 gm/dl (3.4-5.0); Anion Gap 10.4 mmol/L (6.8-13.8); BUN/Creatinine Ratio 18.6 (9.0-21.6); Bilirubin, Total 0.3 mg/dL (0.0-1.1); Calcium * 8.8 mg/dL (7.9-10.9); Carbon Dioxide 31.4 mmol/L (24-32.6); Potassium 4.8 mmol/L (3.4-4.6); Total Protein 6.6 gm/dL (6.2-8.2)
[2016-11-08] MEDS ORDERED: NORMAL SALINE 1,000 ML IV ONE (17:06)
[2016-11-08] MEDS ORDERED: LEVOFLOXACIN/D5W 500 MG/100 ML BAG IV SCH (17:15)
--- OUTSIDE RECORDS SUMMARY | 2016-11-08 18:43 | XMS REPORT | Continuity of Care Document ---
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) (Primary Dx) 10/05/2016 Ophth Exam [...] Description 11/23/2016 Appointment Ophthalmology Suman Graham MD [facility] [address] [phone] (Fax) Health Maintenance Due Date Last Done [...] DUPLEX SCAN BILAT (08/31/2016 12:05 PM) [place] [address] Carotid Duplex Report Patient Name: LISSETTE BROWN LPatient ID: [id number] : [id number] Date: 08/31/2016 12:05:49 PM Gender: FAccession #: [id number] BSA: Weight(Kg): Account #: Procedures: Arterial Report: [...] - SatSep 03, 2016 7:51 [place] [address] Carotid Duplex Report Patient Name: LISSETTE BROWN LPatient ID: [id number] : [id number] Date: 08/31/2016 12:05:49 PM Gender: FAccession #: [id number] BSA: Weight(Kg): Account #: Procedures: Arterial Report: [...] TTE (Transthoracic Echo) Complete (08/31/2016 11:22 AM) [place] [address] Echocardiographic Report Patient Name: LISSETTE BROWN LPatient ID: [id number] : [id number] Date: 08/31/2016 11:22:37 AM Gender: FAccession #: [id number] BSA: 1.38Weight(Kg): 45.4 Quality: Good Procedures: Echocardiographic [...] [ 55.0 - 70.0 ] percent LA Pnxhsf55.3 [ 22.0 - 52.0 ] ml TR Peak Srr073.0[ 100.0 - 280.0 ] cm/sec TR Peak PG 32.0 mmHg Doppler MeasurementValueNormal Range AV Mean PG 4.0[ 2.0 - 4.0 ] mmHg AV Peak Mot540.0[ 100.0 - 170.0 ] cm/sec AV Peak PG 8.0[ 2.0 - 9.0 ] mmHg AL VTI2.1[ 2.0 - 4.0 ] cm2 AV VTI 23.8 cm LVOT Diam1.9[ 1.7 - 2.1 ] cm LVOT Uvel145.7 LVOT Mean Vel66.5 [ 60.0 - 80.0 ] cm/sec LVOT Mean PG 2.0[ 1.0 - 3.0 ] mmHg LVOT Peak Vel91.7 [ 70.0 - 110.0 ] cm/sec LVOT Peak PG 3.0[ 2.0 - 6.0 ] mmHg LVOT VTI 17.3 [ 20.0 - 30.0 ] cm MV E Peak Pqj495.0[ 60.0 - 130.0 ] cm/sec MV Decel [...] - SatSep 04, 2016 10:06 [place] [address] Echocardiographic Report Patient Name: LISSETTE BROWN LPatient ID: [id number] : [id number] Date: 08/31/2016 11:22:37 AM Gender: FAccession #: [id number] BSA: 1.38Weight(Kg): 45.4 Quality: Good Procedures: Echocardiographic [...] Address Group MEDICARE MEDICARE A AND B [id number] [phone] [address] [place] [address] [facility] [employer]ARP MEDICARE [id number] [phone] [address] [place] [address] [address] Hernan Lara y [phone] [place] [address]
--- NOTE | 2016-11-08 19:59 | HP ---
Chief Complaint - Chief Complaint Date of Service: 11/08/16 Time of Service: 19:59 Chief Complaint: " SOB, Coughing". Souce of HPI- Pt; reliable, ER provider report. History of Present Illness: Ms. Brown is a 80-yr-OLD pt who normally sees Shavonne Yeager, an [employer] in [place]. Her PMH involves: Anxiety, Depression, CAD, COPD, HTN, HLD, Pneumonia & PUD. Pt states that she has had worsening SOB that is associated with non- productive cough, headache, night sweats & chills. She came to the [facility] ER on 11/01/16 with similar symptoms and she was discharged home on: Mucomyst nebs t.i.d, Doxycycline 100mg x 10 days and Prednisone 20mg x 10 days. She reports that she took the medication as ordered except for the Mucomyst "which made her feel like her body was on fire" and therefore took it once. She is chronically on 2.5 L of oxygen at home 03/12 and had been for the last 10 yrs. She is a 49 yr 1PPD smoker, but quit 10 yrs ago. She denies having any ill contacts and recent URI symptoms. She also denies Chest pain. During evaluation at the ED,the CXR obtained did not have any acute findings. Labwork showed slightly elevated WBC of 12,800 with a left shift. She received treatment at the ED with IV steroids and Duonebs but her dyspnea did not improve. During physical examination, she is noted to have one word dyspnea, and her breathing is laboured and she has diminished LS along with Expiratory wheezing. Due to failure to respond to outpatient treatment for COPD exacerbation, it is necessary and reasonable for the pt to be admitted inpatient for more than 2 midnight stay to recover from presenting symptoms/ illness. - Patient's Past Medical History Patient History - Medical: Anxiety, GERD, Other Patient History - Cardiac/Respiratory: Asthma, CHF, COPD, Hypertension, Myocardial Infarction, Home O2 Use Patient History - Cancer: Breast Patient History - Surgical Procedures: Cancer Surgery, Cataracts, Other Patient History - Other: None - Family History Mother Family History - Medical: Family History - Cancer: Cervical Father Family History - Medical: Family History - Cardiac/Respiratory: Myocardial Infarction Family History - Cancer: No pertinent family hx - Social History Living Situations: home Abuse History: No History of abuse Psych History: Hx of Anxiety, Hx of Depression Smoking Status: Former smoker Alcohol Use: none Drug Use: none - Immunizations Immunizations Up to Date: Yes Hx Pneumococcal Vaccination: Yes History of Influenza Vaccine: Yes Review Of Systems (GEN) - Review of Systems Generalized/Overall Review: Present: Weakness, Chills, Malaise, Weight gain. Absent: Fever EENTM: Absent: Eye Pain, Blurred Vision, Ear Pain, Throat Pain Respiratory: Present: Cough, Shortness of Breath, Wheezing. Absent: Orthopnea, Stridor Cardiac: Absent: Chest Pain, Palpitations, Syncope Abdominal: Absent: Nausea, Vomiting, Hematemesis, Abdominal Pain, Constipation Genitourinary: Absent: Burning, Itching, Urgency, Frequency Musculoskeletal: Absent: Joint Pain, Back Pain Neurological: Present: Headache, Anxiety. Absent: Depressed, Emotional Problems Skin: Absent: Dryness, Lesions Endocrine: Absent: Intolerance to Cold, Intolerance to Heat Misc: All systems neg except as marked Immunizations: IMMUNIZATION HX Immunizations Up to Date Yes History of Influenza Vaccine Yes Hx Pneumococcal Vaccination Yes Allergies/Adverse Reactions: Allergies Allergy/AdvReac Type Severity Reaction Status Date / Time ibuprofen AdvReac Verified 11/08/16 16:02 Home Medications: HOME MEDICATIONS Acetaminophen [Mapap] 500 mg PO DAILY 05/20/14 [Last Taken 05/20/14 12:00] Albuterol Sulfate [Proair Hfa] 2 puff IH Q4H PRN 05/20/14 [Last Taken Unknown] Ascorbic Acid [Vitamin C] 250 mg PO DAILY 05/20/14 [Last Taken 05/20/14 07:00] Aspirin [Aspirin Chewable] 81 mg PO DAILY 05/20/14 [Last Taken 05/20/14 07:00] Budesonide/Formoterol Fumarate [Symbicort 160-4.5 Mcg Inhaler] 2 puff IH BID 12/25 [Last Taken 05/20/14 17:00] Escitalopram Oxalate [Lexapro] 10 mg PO BID 05/20/14 [Last Taken 05/20/14 17:00] Isosorbide Mononitrate [Imdur] 120 mg PO BID 05/20/14 [Last Taken 05/20/14 07:00 ] Metoprolol Succinate [Toprol Xl] 50 mg PO DAILY 05/20/14 [Last Taken 05/20/14 07 :00] Pantoprazole Sodium [Protonix] 40 mg PO DAILY 05/20/14 [Last Taken 05/20/14 07: 00] Potassium Chloride [Klor-Con 10] 10 meq PO DAILY 05/20/14 [Last Taken 05/20/14 07:00] Simvastatin [Zocor] 20 mg PO HS 05/20/14 [Last Taken 05/20/14 20:00] Tiotropium [place] [Spiriva] 1 cap IH DAILY 05/20/14 [Last Taken 05/20/14 08:00] Ubidecarenone [Coenzyme Q10] 1 cap PO DAILY 05/20/14 [Last Taken 05/20/14 07:00] amLODIPine BESYLATE [Norvasc] 5 mg PO DAILY 05/20/14 [Last Taken 05/20/14 07:00] hydrOXYzine HCL [Atarax] 25 mg PO HS 05/20/14 [Last Taken 05/20/14 20:00] traZODone HCL [Desyrel] 50 mg PO HS PRN 05/20/14 [Last Taken 05/20/14 20:00] Calcium Carbonate [Tums] 500 mg PO DAILY 05/21/14 [Last Taken 05/20/14 07:00] Multivitamin [Multi-Vitamin Daily] 1 each PO DAILY 05/21/14 [Last Taken 07:00] Albuterol Sulfate/Ipratropium [Duoneb 2.5-0.5MG/3ML Soln] 3 ml IH Q6HRT #14 nebu 05/24/14 [Last Taken Unknown] Clorazepate Dipotassium [Tranxene] 3.75 mg PO HS 06/18/16 [Last Taken Unknown] Levofloxacin [Levaquin] 500 mg PO DAILY #7 tab 06/18/16 [Last Taken Unknown] Zolpidem Tartrate [Ambien] 2.5 mg PO HS PRN 06/18/16 [Last Taken Unknown] predniSONE [Prednisone] 3 tab PO DAILY #18 tab 06/18/16 [Last Taken Unknown] Acetylcysteine [Mucomyst 10%] 400 mg NEB TID #1 bottle 11/01/16 [Last Taken Unknown] Doxycycline Monohydrate 100 mg PO BID #20 tablet 11/01/16 [Last Taken Unknown] predniSONE [Deltasone] 20 mg PO BID #10 tablet 11/01/16 [Last Taken Unknown] Exam - Exam Vital Signs: Vital Signs - Last Taken Temp 36.5 C 11/08/16 19:30 Pulse 83 11/08/16 19:30 Resp 16 11/08/16 19:30 BP 142/69 11/08/16 19:30 Pulse Ox 98 11/08/16 19:30 Constitutional: Present: Alert, Oriented x3, No distress ENT Exam: Present: normal ENT inspection, dry mucous membranes. Absent: nasal drainage, pharyngeal erythema Eye Exam: bilateral eye: normal inspection, PERRL Neck: Present: full range of motion, supple, normal inspection Back Exam: Present: normal inspection Respiratory: Present: decreased breath sounds, accessory muscle use, wheezing, expiration (prolonged) Cardiovascular/Chest: Present: normal peripheral pulses, regular rate, rhythm, no JVD, no murmur Abdomen: Present: Normal bowel sounds, soft, nontender /Rectal: Present: Exam deferred Extremity: Present: normal range of motion, non-tender, normal inspection Skin Exam: Present: warm/dry, no cyanosis Lymphatic: Present: no adenopathy Neurologic: Present: no motor/sensory deficits, alert, normal mood/affect, oriented x 3 Appearance: Present: appropriate appearance, appropriate insight Eye contact: Present: cooperative, good eye contact, other - One Word Dyspnea Thoughts: Present: normal thought pattern, no apparent hallucination Diagnostic Studies: Laboratory Results WBC 12.8 K/mm3 (4.0-10.5) H 11/08/16 16:32 RBC 4.12 M/mm3 (4.2-5.4) L 11/08/16 16:32 Hgb 11.7 gm/dL (12.5-16.0) L 11/08/16 16:32 Hct 36.3 % (37.0-47.0) L 11/08/16 16:32 MCV 88.1 fl (78-100) 11/08/16 16:32 MCH 28.4 pg (27-31) 11/08/16 16:32 MCHC 32.2 g/dl (32-36) 11/08/16 16:32 RDW 13.8 % (11.5-14.0) 11/08/16 16:32 Plt Count 325 K/mm3 (150-450) 11/08/16 16:32 MPV 8.4 fl (6.0-9.5) 11/08/16 16:32 Immature Gran % (Auto) 0.50 % (0.001-0.429) H 11/08/16 16:32 Immature Gran # (Auto) 0.07 K/mm3 (0.000-0.0310) H 11/08/16 16:32 Neutrophils % 79.3 % (42-75.0) H 11/08/16 16:32 Lymphocytes % 10.7 % (20-51) L 11/08/16 16:32 Monocytes % 9.2 % (0.0-9) H 11/08/16 16:32 Eosinophils % 0.1 % (0.0-3.0) 11/08/16 16:32 Basophils % 0.2 % (0.0-1.0) 11/08/16 16:32 Nucleated RBC % 0.0 k/mm3 (0-1) 11/08/16 16:32 Neutrophils # 10.1 K/mm3 (1.3-6.0) H 11/08/16 16:32 Lymphocytes # 1.4 k/mm3 (1.5-3.5) L 11/08/16 16:32 Monocytes # 1.2 k/mm3 (0.0-1.0) H 11/08/16 16:32 Eosinophils # 0.0 k/mm3 (0.0-0.7) 11/08/16 16:32 Absolute Basophils 0.0 k/mm3 (0.0-0.1) 11/08/16 16:32 Sodium 128 mmol/L (132-142) L 11/08/16 16:32 Plasma Sodium 128 mmol/L (130-142) L 11/08/16 16:32 Potassium 4.8 mmol/L (3.4-4.6) H 11/08/16 16:32 Chloride 91 mmol/L (97-106) L 11/08/16 16:32 Carbon Dioxide 31.4 mmol/L (24-32.6) 11/08/16 16:32 Anion Gap 10.4 mmol/L (6.8-13.8) 11/08/16 16:32 BUN 13 mg/dL (3-23) 11/08/16 16:32 Creatinine 0.70 mg/dL (0.4-1.4) 11/08/16 16:32 Est GFR (Non-Af Amer) 85 mL/min (60-130) 11/08/16 16:32 BUN/Creatinine Ratio 18.6 (9.0-21.6) 11/08/16 16:32 Random Glucose 105 mg/dL (70-110) 11/08/16 16:32 Calcium 8.8 mg/dL (7.9-10.9) 11/08/16 16:32 Calcium Adj for Albumin 9.0 mg/dL (8.4-10.2) 11/08/16 16:32 Total Bilirubin 0.3 mg/dL (0.0-1.1) 11/08/16 16:32 AST 17 U/L (0-48) 11/08/16 16:32 ALT 19 U/L (19-67) 11/08/16 16:32 Alkaline Phosphatase 51 U/L (50-170) 11/08/16 16:32 Total Protein 6.6 gm/dL (6.2-8.2) 11/08/16 16:32 Albumin 3.3 gm/dl (3.4-5.0) L 11/08/16 16:32 Assessment/Plan - Assessment/Plan (1) COPD exacerbation Assessment: Pt reported worsening dyspnea and coughing that was out of her normal day to day variation. She failed to respond to outpatient treatment with Doxycycline, prednisone and Mucymyst. She received IV Levaquin at the ED and will continue with the Ax ( 5-7 days recommended). Will add scheduled duoneb treatment and IV steroids to improve lung function and also due to the exp. Wheezing and notable dyspnea. The CXR did not have any acute findings and therefore exacerbation may not have been precipitated by Pneumonia & CHF, & the WBC elevation was likely induced by steroid use vs infection process. . Problem: Acute (2) Failure of outpatient treatment Assessment: She failed outpatient treatment for COPD with Doxycycline, prednisone and Mucomyst nebs. Will continue with Levaquin, Add scheduled duonebs treatment and IV Solumedrol. Problem: Acute (3) Chronic respiratory failure with hypoxia Assessment: Pt has been on home oxygen at 2.5-3L for the last 10 yrs. Will continue with Oxygen supplementation with no more than 3 L. Monitor V.S Problem: Chronic (4) Dehydration Assessment: Noted with NA 128 & K 4.8. Will hydrate gently with IVF. BMP in am. Problem: Acute (5) HTN (hypertension) Problem: Chronic Qualifiers: Hypertension type: essential hypertension Qualified Code(s): I10 - Essential (primary) hypertension (6) HLD (hyperlipidemia) Problem: Chronic (7) PUD (peptic ulcer disease) Problem: Chronic (8) Anxiety Problem: Chronic (9) Depression Problem: Chronic
[2016-11-08] MEDS: ALBUTEROL SULFATE/IPRATROPIUM 3 ML NEBU IH SCH ×2 (20:51→22:39)
[2016-11-08] MEDS: NORMAL SALINE 1,000 ML IV PRN (21:25)
[2016-11-08] MEDS ORDERED: predniSONE 20 MG TABLET PO SCH (22:45)
[2016-11-08] MEDS: METHYLPREDNISOLONE SOD SUCC 60 MG in WATER FOR INJ.,BACTERIOSTATIC 0 ML IV SCH (23:21)
[2016-11-08] MEDS: HEPARIN SODIUM,PORCINE 5,000 UNITS/ML VIAL SC SCH (23:21)
[2016-11-09 00:01] LABS: Urine Bilirubin Negative (NEGATIVE); Urine Ketone Negative (NEGATIVE); Urine Nitrite Negative (NEGATIVE); Urine Protein Negative (NEGATIVE); Urine Urobilinogen Normal (NORMAL)
[2016-11-09 00:10] LABS: Urine Appearance Clear; Urine Blood 10 /ul (NEGATIVE); Urine Color Yellow
[2016-11-09 00:11] LABS: Urine Bacteria None Seen; Urine RBC TRACE /hpf (0-5); Urine WBC None Seen /hpf (0-5)
[2016-11-09] MEDS: ACETAMINOPHEN 325 MG TABLET PO PRN ×2 (01:46→23:45)
[2016-11-09] MEDS: ALBUTEROL SULFATE/IPRATROPIUM 3 ML NEBU IH SCH ×7 (04:30→22:01)
[2016-11-09] MEDS: METHYLPREDNISOLONE SOD SUCC 60 MG in WATER FOR INJ.,BACTERIOSTATIC 0 ML IV SCH ×4 (05:05→23:18)
[2016-11-09 05:36] LABS: Hematocrit 41.2 % (37.0-47.0); Hemoglobin 13.2 gm/dL (12.5-16.0); Mean Cell Volume 88.2 fl (78-100); Mean Corpuscular Hemoglobin 28.3 pg (27-31); Mean Platelet Volume 8.8 fl (6.0-9.5); Neutrophil # 12.4 K/mm3 (1.3-6.0); Neutrophil % 88.7 % (42-75.0); Platelet Count 442 K/mm3 (150-450); Red Blood Count 4.67 M/mm3 (4.2-5.4); Red Cell Distribution Width 13.7 % (11.5-14.0)
[2016-11-09 05:42] LABS: Anion Gap 14.2 mmol/L (6.8-13.8); BUN/Creatinine Ratio 12.4 (9.0-21.6); Calcium * 9.6 mg/dL (7.9-10.9); Carbon Dioxide 29.5 mmol/L (24-32.6); Estimated Creat Clear 35.6; Potassium 3.7 mmol/L (3.4-4.6)
[2016-11-09] MEDS: PANTOPRAZOLE SODIUM 40 MG TABLET.EC PO SCH (07:49)
[2016-11-09] MEDS ORDERED: ISOSORBIDE MONONITRATE 120 MG TAB.SR.24H PO SCH (09:00)
[2016-11-09] MEDS ORDERED: ACETAMINOPHEN 500 MG TABLET PO SCH (09:00)
[2016-11-09] MEDS ORDERED: FLUTICASONE/SALMETEROL 14 PUFF DISK.W.DEV IH SCH ×2 (09:00→21:00)
[2016-11-09] MEDS ORDERED: TIOTROPIUM BROMIDE 5 CAP INHALER IH SCH (09:00)
[2016-11-09] MEDS: ESCITALOPRAM OXALATE 10 MG TAB PO SCH ×2 (09:42→20:35)
[2016-11-09] MEDS: ASCORBIC ACID 500 MG TABLET PO SCH (09:42)
[2016-11-09] MEDS: amLODIPine BESYLATE 5 MG TABLET PO SCH (09:42)
[2016-11-09] MEDS: ASPIRIN 81 MG TAB.CHEW PO SCH (09:42)
[2016-11-09] MEDS: MULTIVITAMINS 1 CAP CAPSULE PO SCH (09:42)
[2016-11-09] MEDS: CALCIUM CARBONATE 500 MG TAB.CHEW PO SCH (09:42)
[2016-11-09] MEDS: METOPROLOL SUCCINATE 50 MG TABLET.SA PO SCH (09:42)
[2016-11-09] MEDS: NORMAL SALINE 1,000 ML IV PRN (09:51)
[2016-11-09] MEDS: HEPARIN SODIUM,PORCINE 5,000 UNITS/ML VIAL SC SCH ×2 (11:45→23:20)
[2016-11-09] MEDS: SPIRIVA RESPIMAT PO SCH (14:17)
[2016-11-09] MEDS ORDERED: VILANTEROL IH SCH (14:45)
[2016-11-09] MEDS ORDERED: FLUTICASONE IH SCH (14:45)
[2016-11-09] MEDS ORDERED: ALPRAZolam 0.5 MG TABLET PO PRN (14:46)
--- NOTE | 2016-11-09 15:04 | PN ---
Subjective - Date and Time Seen Date: 11/09/16 Time: 13:00 Subjective Narrative: She reports continued shortness of breath. Drops sats to 86% when she ambulates. Feels weak. Reports her brought a illness home. Objective - Vitals Vitals: Last Vital Signs Temp 36.6 C 11/09/16 14:43 Pulse 99 11/09/16 14:43 Resp 24 H 11/09/16 14:43 BP 174/90 11/09/16 14:43 Pulse Ox 96 11/09/16 14:43 - Abnormal Lab Findings Abnormal Lab Findings: Abnormal Lab Results 11/08/16 11/08/16 11/09/16 Range/Units 19:57 20:45 05:26 WBC 14.0 H (4.0-10.5) K/mm3 Immature Gran % (Auto) 0.70 H (0.001-0.429) % Immature Gran # (Auto) 0.10 H (0.000-0.0310) K/mm3 Neutrophils % 88.7 H (42-75.0) % Lymphocytes % 9.9 L (20-51) % Neutrophils # 12.4 H (1.3-6.0) K/mm3 Lymphocytes # 1.4 L (1.5-3.5) k/mm3 Total CO2 24.6 H (19.0-24.0) mmol/L Chloride (97-106) mmol/L Anion Gap (6.8-13.8) mmol/L Random Glucose (70-110) mg/dL Urine Glucose (UA) >=1000 H (NEGATIVE) mg/dL Urine Blood 10 H (NEGATIVE) /ul 11/09/16 Range/Units 05:26 WBC (4.0-10.5) K/mm3 Immature Gran % (Auto) (0.001-0.429) % Immature Gran # (Auto) (0.000-0.0310) K/mm3 Neutrophils % (42-75.0) % Lymphocytes % (20-51) % Neutrophils # (1.3-6.0) K/mm3 Lymphocytes # (1.5-3.5) k/mm3 Total CO2 (19.0-24.0) mmol/L Chloride 95 L (97-106) mmol/L Anion Gap 14.2 H (6.8-13.8) mmol/L Random Glucose 174 H D (70-110) mg/dL Urine Glucose (UA) (NEGATIVE) mg/dL Urine Blood (NEGATIVE) /ul - Exam Constitutional: Present: Alert, Oriented x3, Cooperative, Mild distress - tachypnea ENT Exam: Present: hearing grossly normal Respiratory: Present: decreased breath sounds, wheezing Cardiovascular/Chest: Present: regular rate, rhythm, no murmur Abdomen: Present: Normal bowel sounds, soft, nontender, nondistended, no rebound tenderness, no hepatospenomegaly Skin Exam: Present: normal color, warm/dry, no cyanosis Assessment/Plan Plan Narrative: Lissette is an 80 yo female with: 1) Acute on Chronic Respiratory Failure: She is chronically on 2lpm of oxygen at baseline. She is dropping to 86% on 2.5lpm with ambulation. Acute failure secondary to COPD exacerbation. Will treat COPD and wean oxygen to baseline. 2) COPD Exacerbation: She has failed outpatient treatment and needs inpatient management with IV levaquin, will increase to 750mg Daily to cover for pseudomonas, continue solumedrol 60mg IV q6hr weaning to oral prednisone as able when condition improves, continue nebulizers, continue oxygen. 3) Anxiety/Restlessness: Chronic but likely worse due to acute illness, albuterol, and prednisone. Will give xanax prn. - Problems/Diagnosis (1) Acute and chronic respiratory failure ([id number]) Problem: Acute (2) COPD exacerbation Problem: Acute
[2016-11-09] MEDS: CLOPIDOGREL BISULFATE 75 MG TABLET PO SCH (15:43)
[2016-11-09] MEDS: LEVOFLOXACIN/D5W 750 MG/150 ML BAG IV SCH (15:43)
[2016-11-09] MEDS ORDERED: LEVOFLOXACIN/D5W 500 MG/100 ML BAG IV SCH (17:00)
[2016-11-09] MEDS: hydrOXYzine HCL 25 MG TABLET PO SCH (20:35)
[2016-11-09] MEDS: ISOSORBIDE MONONITRATE 60 MG TAB.SR.24H PO SCH (20:37)
[2016-11-09] MEDS: SIMVASTATIN 20 MG TABLET PO SCH (20:37)
[2016-11-09] MEDS: CLORAZEPATE DIPOTASSIUM 3.75 MG TABLET PO SCH (20:42)
[2016-11-09] MEDS: ZOLPIDEM TARTRATE 5 MG TABLET PO PRN (23:18)
[2016-11-10] MEDS: traZODone HCL 50 MG TABLET PO PRN ×2 (00:29→23:04)
[2016-11-10] MEDS: ALBUTEROL SULFATE/IPRATROPIUM 3 ML NEBU IH SCH ×6 (02:12→22:05)
--- NOTE | 2016-11-10 05:53 | PN ---
Subjective - Date and Time Seen Date: 11/10/16 Time: 05:48 Subjective Narrative: Mrs. Brown examined this am. Has no new complaints. Does not feel better but not any worse with her breathing. No acute events according to nursing. Still gets SOB with minimal exertion. Objective - Vitals Vitals: Last Vital Signs Temp 36.5 C 11/10/16 03:20 Pulse 89 11/10/16 03:20 Resp 21 H 11/10/16 03:20 BP 155/90 11/10/16 03:20 Pulse Ox 95 11/10/16 03:20 - Abnormal Lab Findings Abnormal Lab Findings: Abnormal Lab Results 11/09/16 Range/Units 05:26 Chloride 95 L (97-106) mmol/L Anion Gap 14.2 H (6.8-13.8) mmol/L Random Glucose 174 H D (70-110) mg/dL - Exam Constitutional: Present: Alert, Oriented x3, Cooperative, No distress, Elderly ENT Exam: Present: normal ENT inspection, dry mucous membranes Neck: Present: full range of motion, supple, normal inspection Breasts: Present: Other - hx of Double Mastectomy Respiratory: Present: no accessory muscle use, decreased breath sounds, wheezing , expiration (prolonged) Cardiovascular/Chest: Present: normal peripheral pulses, regular rate, rhythm, no chest tenderness, no murmur Abdomen: Present: Normal bowel sounds, soft, nontender /Rectal: Present: Exam deferred Extremity: Present: normal range of motion, non-tender, normal inspection Skin Exam: Present: warm/dry, no cyanosis Lymphatic: Present: no adenopathy Neurologic: Present: no motor/sensory deficits, alert, oriented x 3 Appearance: Present: appropriate appearance, appropriate insight Eye contact: Present: cooperative, good eye contact, normal speech Thoughts: Present: normal thought pattern, no apparent hallucination Assessment/Plan - Problems/Diagnosis (1) Acute and chronic respiratory failure ([id number]) Problem: Acute Narrative: She is chronically on 2lpm of oxygen at baseline. Nursing reported dropping to 85% on 2.5 lpm with ambulation during the night. Acute failure secondary to COPD exacerbation. Continue treatment for COPD exacerbation; Duonebs, IV Antibiotics. (2) COPD exacerbation Problem: Acute Narrative: She has failed outpatient treatment and needs inpatient management with IV levaquin 750mg Daily, continue solumedrol 60mg IV q6hr weaning to oral prednisone as able when condition improves, continue nebulizers, Oxygen supplementation. (3) Failure of outpatient treatment Problem: Acute Narrative: Plan as above. (4) Chronic respiratory failure with hypoxia Problem: Chronic Narrative: Pt has been on home oxygen at 2.5-3L for the last 10 yrs. Will continue with Oxygen supplementation with no more than 3 L. Monitor V.S (5) Dehydration Problem: Resolved (6) HTN (hypertension) Problem: Chronic Qualifiers: Hypertension type: essential hypertension Qualified Code(s): I10 - Essential (primary) hypertension (7) HLD (hyperlipidemia) Problem: Chronic (8) PUD (peptic ulcer disease) Problem: Chronic (9) Anxiety Problem: Chronic (10) Depression Problem: Chronic
[2016-11-10] MEDS: METHYLPREDNISOLONE SOD SUCC 60 MG in WATER FOR INJ.,BACTERIOSTATIC 0 ML IV SCH (05:56)
[2016-11-10 06:11] LABS: Hematocrit 36.4 % (37.0-47.0); Hemoglobin 11.8 gm/dL (12.5-16.0); Mean Cell Volume 87.7 fl (78-100); Mean Corpuscular Hemoglobin 28.4 pg (27-31); Mean Corpuscular Hgb Conc 32.4 g/dl (32-36); Mean Platelet Volume 8.8 fl (6.0-9.5); Neutrophil # 11.5 K/mm3 (1.3-6.0); Neutrophil % 88.5 % (42-75.0); Platelet Count 376 K/mm3 (150-450); Red Blood Count 4.15 M/mm3 (4.2-5.4); Red Cell Distribution Width 14.1 % (11.5-14.0)
[2016-11-10 06:25] LABS: Anion Gap 11.9 mmol/L (6.8-13.8); BUN/Creatinine Ratio 20.9 (9.0-21.6); Calcium * 9.6 mg/dL (7.9-10.9); Carbon Dioxide 32.2 mmol/L (24-32.6); Estimated Creat Clear 34.8; Potassium 4.1 mmol/L (3.4-4.6)
[2016-11-10] MEDS: PANTOPRAZOLE SODIUM 40 MG TABLET.EC PO SCH (06:47)
[2016-11-10] MEDS: BREO ELLIPTA 200/25 PO SCH (09:38)
[2016-11-10] MEDS: ISOSORBIDE MONONITRATE 120 MG TAB.SR.24H PO SCH (09:41)
[2016-11-10] MEDS: ASPIRIN 81 MG TAB.CHEW PO SCH (09:41)
[2016-11-10] MEDS: CLOPIDOGREL BISULFATE 75 MG TABLET PO SCH (09:41)
[2016-11-10] MEDS: ASCORBIC ACID 500 MG TABLET PO SCH (09:41)
[2016-11-10] MEDS: amLODIPine BESYLATE 5 MG TABLET PO SCH (09:41)
[2016-11-10] MEDS: CALCIUM CARBONATE 500 MG TAB.CHEW PO SCH (09:41)
[2016-11-10] MEDS: ESCITALOPRAM OXALATE 10 MG TAB PO SCH ×2 (09:42→20:39)
[2016-11-10] MEDS: METOPROLOL SUCCINATE 50 MG TABLET.SA PO SCH (09:42)
[2016-11-10] MEDS: MULTIVITAMINS 1 CAP CAPSULE PO SCH (09:42)
[2016-11-10] MEDS: ACETAMINOPHEN 325 MG TABLET PO PRN ×2 (09:47→20:54)
[2016-11-10] MEDS ORDERED: DILTIAZEM HCL 5 MG/ML VIAL IV ONE (10:30)
[2016-11-10] MEDS ORDERED: METOPROLOL SUCCINATE 50 MG TABLET.SA PO ONE (10:43)
[2016-11-10] MEDS: HEPARIN SODIUM,PORCINE 5,000 UNITS/ML VIAL SC SCH ×2 (11:21→23:04)
[2016-11-10] MEDS: LEVOFLOXACIN/D5W 750 MG/150 ML BAG IV SCH (15:05)
[2016-11-10] MEDS: SPIRIVA RESPIMAT PO SCH (15:05)
[2016-11-10] MEDS ORDERED: FUROSEMIDE 10 MG/ML VIAL IV ONE (20:05)
[2016-11-10] MEDS ORDERED: POTASSIUM CHLORIDE 20 MEQ TABLET.SA PO ONE (20:08)
[2016-11-10] MEDS: ISOSORBIDE MONONITRATE 60 MG TAB.SR.24H PO SCH (20:38)
[2016-11-10] MEDS: SIMVASTATIN 20 MG TABLET PO SCH (20:38)
[2016-11-10] MEDS: hydrOXYzine HCL 25 MG TABLET PO SCH (20:40)
[2016-11-10] MEDS: ZOLPIDEM TARTRATE 5 MG TABLET PO PRN (20:52)
[2016-11-10] MEDS: CLORAZEPATE DIPOTASSIUM 3.75 MG TABLET PO SCH (20:55)
[2016-11-11] MEDS: ALBUTEROL SULFATE/IPRATROPIUM 3 ML NEBU IH SCH ×6 (02:08→22:08)
--- NOTE | 2016-11-11 06:17 | PN ---
Subjective - Date and Time Seen Date: 11/11/16 Time: 06:10 Subjective Narrative: Ms. Brown examined this am. Complains of feeling SOB with short ambulation to the bathroom. Still has expiratory wheezing. Desaturates to the 80s with walking. No other issues according to nursing. Objective - Vitals Vitals: Last Vital Signs Temp 36.6 C 11/11/16 02:14 Pulse 72 11/11/16 06:04 Resp 20 11/11/16 06:04 BP 108/66 11/11/16 02:14 Pulse Ox 98 11/11/16 06:04 - Abnormal Lab Findings Abnormal Lab Findings: Abnormal Lab Results 11/10/16 11/10/16 Range/Units 05:50 05:50 WBC 13.0 H (4.0-10.5) K/mm3 RBC 4.15 L (4.2-5.4) M/mm3 Hgb 11.8 L (12.5-16.0) gm/dL Hct 36.4 L (37.0-47.0) % RDW 14.1 H (11.5-14.0) % Immature Gran % (Auto) 0.80 H (0.001-0.429) % Immature Gran # (Auto) 0.10 H (0.000-0.0310) K/mm3 Neutrophils % 88.5 H (42-75.0) % Lymphocytes % 6.2 L (20-51) % Neutrophils # 11.5 H (1.3-6.0) K/mm3 Lymphocytes # 0.8 L (1.5-3.5) k/mm3 Chloride 93 L (97-106) mmol/L Random Glucose 159 H (70-110) mg/dL - Exam Constitutional: Present: Alert, Oriented x3, Cooperative, No distress ENT Exam: Present: normal ENT inspection, hearing grossly normal, dry mucous membranes Neck: Present: full range of motion, supple, normal inspection Breasts: Present: Exam deferred Respiratory: Present: decreased breath sounds, wheezing, expiration (prolonged) Cardiovascular/Chest: Present: regular rate, rhythm, no chest tenderness, no edema Abdomen: Present: Normal bowel sounds, soft, nontender Extremity: Present: normal range of motion, non-tender, normal inspection, no pedal edema Skin Exam: Present: warm/dry, no cyanosis Lymphatic: Present: no adenopathy Neurologic: Present: no motor/sensory deficits, alert, normal mood/affect, oriented x 3 Appearance: Present: appropriate appearance, appropriate insight Eye contact: Present: cooperative, good eye contact, normal speech Thoughts: Present: normal thought pattern, no apparent hallucination Assessment/Plan - Problems/Diagnosis (1) Acute and chronic respiratory failure ([id number]) Problem: Acute Narrative: She is chronically on 2lpm of oxygen at baseline. Still having desaturations to mid 80s with short ambulation distance. Acute failure is secondary to COPD exacerbation. Continue treatment for COPD exacerbation; Duonebs, IV Antibiotics , oral prednisone. (2) COPD exacerbation Problem: Acute Narrative: Failed outpatient treatment and needed inpatient management with IV levaquin 750mg Daily, solumedrol 60mg IV q6hr weaned to oral prednisone, continue nebulizers, Oxygen supplementation. (3) Failure of outpatient treatment Problem: Acute Narrative: Plan as above. (4) Chronic respiratory failure with hypoxia Problem: Chronic Narrative: Pt has been on home oxygen at 2.5-3L for the last 10 yrs. Will continue with Oxygen supplementation with no more than 3 L. Monitor V.S (5) Dehydration Problem: Resolved (6) HTN (hypertension) Problem: Chronic Qualifiers: Hypertension type: essential hypertension Qualified Code(s): I10 - Essential (primary) hypertension (7) HLD (hyperlipidemia) Problem: Chronic (8) PUD (peptic ulcer disease) Problem: Chronic (9) Anxiety Problem: Chronic (10) Depression Problem: Chronic
[2016-11-11] MEDS: PANTOPRAZOLE SODIUM 40 MG TABLET.EC PO SCH (07:06)
[2016-11-11] MEDS: ASPIRIN 81 MG TAB.CHEW PO SCH (09:07)
[2016-11-11] MEDS: MULTIVITAMINS 1 CAP CAPSULE PO SCH (09:07)
[2016-11-11] MEDS: ESCITALOPRAM OXALATE 10 MG TAB PO SCH ×2 (09:07→20:43)
[2016-11-11] MEDS: amLODIPine BESYLATE 5 MG TABLET PO SCH (09:07)
[2016-11-11] MEDS: CALCIUM CARBONATE 500 MG TAB.CHEW PO SCH (09:07)
[2016-11-11] MEDS: ASCORBIC ACID 500 MG TABLET PO SCH (09:07)
[2016-11-11] MEDS: BREO ELLIPTA 200/25 PO SCH (09:08)
[2016-11-11] MEDS: predniSONE 20 MG TABLET PO SCH (09:08)
[2016-11-11] MEDS: ISOSORBIDE MONONITRATE 120 MG TAB.SR.24H PO SCH (09:08)
[2016-11-11] MEDS: METOPROLOL SUCCINATE 100 MG TABLET.SA PO SCH (09:08)
[2016-11-11] MEDS: CLOPIDOGREL BISULFATE 75 MG TABLET PO SCH (09:08)
[2016-11-11] MEDS: ACETAMINOPHEN 325 MG TABLET PO PRN ×2 (09:23→23:01)
[2016-11-11] MEDS: HEPARIN SODIUM,PORCINE 5,000 UNITS/ML VIAL SC SCH ×2 (11:32→22:48)
[2016-11-11] MEDS: LEVOFLOXACIN/D5W 750 MG/150 ML BAG IV SCH (14:19)
[2016-11-11] MEDS: SPIRIVA RESPIMAT PO SCH (14:19)
[2016-11-11] MEDS: ISOSORBIDE MONONITRATE 60 MG TAB.SR.24H PO SCH (20:41)
[2016-11-11] MEDS: SIMVASTATIN 20 MG TABLET PO SCH (20:42)
[2016-11-11] MEDS: hydrOXYzine HCL 25 MG TABLET PO SCH (20:45)
[2016-11-11] MEDS: CLORAZEPATE DIPOTASSIUM 3.75 MG TABLET PO SCH (20:55)
[2016-11-11] MEDS: ZOLPIDEM TARTRATE 5 MG TABLET PO PRN (20:56)
[2016-11-11] MEDS: traZODone HCL 50 MG TABLET PO PRN (23:01)
[2016-11-12] MEDS: ALBUTEROL SULFATE/IPRATROPIUM 3 ML NEBU IH SCH ×6 (02:06→22:10)
[2016-11-12] MEDS: PANTOPRAZOLE SODIUM 40 MG TABLET.EC PO SCH (06:55)
[2016-11-12] MEDS: BREO ELLIPTA 200/25 PO SCH (09:24)
[2016-11-12] MEDS: ASCORBIC ACID 500 MG TABLET PO SCH (09:24)
[2016-11-12] MEDS: CALCIUM CARBONATE 500 MG TAB.CHEW PO SCH (09:25)
[2016-11-12] MEDS: predniSONE 20 MG TABLET PO SCH (09:25)
[2016-11-12] MEDS: ISOSORBIDE MONONITRATE 120 MG TAB.SR.24H PO SCH (09:25)
[2016-11-12] MEDS: MULTIVITAMINS 1 CAP CAPSULE PO SCH (09:25)
[2016-11-12] MEDS: METOPROLOL SUCCINATE 100 MG TABLET.SA PO SCH (09:25)
[2016-11-12] MEDS: amLODIPine BESYLATE 5 MG TABLET PO SCH (09:25)
[2016-11-12] MEDS: CLOPIDOGREL BISULFATE 75 MG TABLET PO SCH (09:25)
[2016-11-12] MEDS: ESCITALOPRAM OXALATE 10 MG TAB PO SCH ×2 (09:26→20:11)
[2016-11-12] MEDS: ASPIRIN 81 MG TAB.CHEW PO SCH (09:26)
[2016-11-12] MEDS: ACETAMINOPHEN 325 MG TABLET PO PRN ×2 (09:33→22:25)
[2016-11-12] MEDS: HEPARIN SODIUM,PORCINE 5,000 UNITS/ML VIAL SC SCH ×2 (12:42→22:25)
[2016-11-12] MEDS: SPIRIVA RESPIMAT PO SCH (14:50)
[2016-11-12] MEDS: LEVOFLOXACIN/D5W 750 MG/150 ML BAG IV SCH (14:50)
[2016-11-12] MEDS: ISOSORBIDE MONONITRATE 60 MG TAB.SR.24H PO SCH (20:11)
[2016-11-12] MEDS: SIMVASTATIN 20 MG TABLET PO SCH (20:11)
[2016-11-12] MEDS: hydrOXYzine HCL 25 MG TABLET PO SCH (20:11)
[2016-11-12] MEDS: CLORAZEPATE DIPOTASSIUM 3.75 MG TABLET PO SCH (20:14)
[2016-11-12] MEDS: traZODone HCL 50 MG TABLET PO PRN (22:25)
[2016-11-12] MEDS: ZOLPIDEM TARTRATE 5 MG TABLET PO PRN (22:26)
[2016-11-13] MEDS: ALBUTEROL SULFATE/IPRATROPIUM 3 ML NEBU IH SCH ×6 (02:28→22:26)
--- NOTE | 2016-11-13 06:44 | PN ---
Subjective - Date and Time Seen Date: 11/13/16 Time: 06:35 Subjective Narrative: Mrs. Brown examined this am. She feels much better with her SOB compared to yesterday. Still gets dyspneic with activity, but feels she's back to her normal. Still has exp. wheezing. Remains on 2.5 L. No other issues according to nursing. Objective - Vitals Vitals: Last Vital Signs Temp 35.8 C L 11/13/16 03:00 Pulse 75 11/13/16 06:12 Resp 20 11/13/16 06:12 BP 138/77 11/13/16 03:00 Pulse Ox 94 11/13/16 06:04 - Exam Constitutional: Present: Alert, Oriented x3, Cooperative, No distress, Elderly ENT Exam: Present: normal ENT inspection Neck: Present: full range of motion, supple, normal inspection Breasts: Present: Exam deferred Respiratory: Present: no respiratory distress, no accessory muscle use, wheezing , expiration (prolonged) Cardiovascular/Chest: Present: normal peripheral pulses, regular rate, rhythm, no chest tenderness, no edema Abdomen: Present: Normal bowel sounds, soft, nontender /Rectal: Present: Exam deferred Extremity: Present: non-tender, normal inspection, no pedal edema Skin Exam: Present: warm/dry, no cyanosis Lymphatic: Present: no adenopathy Neurologic: Present: alert, normal mood/affect, oriented x 3 Appearance: Present: appropriate appearance, appropriate insight Eye contact: Present: cooperative, good eye contact, normal speech Thoughts: Present: normal thought pattern, no apparent hallucination Assessment/Plan - Problems/Diagnosis (1) Acute and chronic respiratory failure ([id number]) Problem: Acute Narrative: She is chronically on 2-3 Lpm of oxygen at baseline. Was having desaturations to mid 80s with short ambulation distance. Acute failure is secondary to COPD exacerbation. Continue treatment for COPD exacerbation; Duonebs, IV Antibiotics , oral prednisone. Doing better today. Anticipate discharge tomorrow. (2) COPD exacerbation Problem: Acute Narrative: Failed outpatient treatment and needed inpatient management with IV levaquin 750mg Daily, solumedrol 60mg IV q6hr weaned to oral prednisone, continue nebulizers, Oxygen supplementation. (3) Failure of outpatient treatment Problem: Acute Narrative: Plan as above. (4) Chronic respiratory failure with hypoxia Problem: Chronic Narrative: Pt has been on home oxygen at 2.5-3L for the last 10 yrs. Will continue with Oxygen supplementation with no more than 3 L. Monitor V.S (5) Dehydration Problem: Resolved (6) HTN (hypertension) Problem: Chronic Qualifiers: Hypertension type: essential hypertension Qualified Code(s): I10 - Essential (primary) hypertension (7) HLD (hyperlipidemia) Problem: Chronic (8) PUD (peptic ulcer disease) Problem: Chronic (9) Anxiety Problem: Chronic (10) Depression Problem: Chronic
[2016-11-13] MEDS: PANTOPRAZOLE SODIUM 40 MG TABLET.EC PO SCH (07:13)
[2016-11-13] MEDS: ACETAMINOPHEN 325 MG TABLET PO PRN ×2 (07:13→22:38)
[2016-11-13] MEDS: BREO ELLIPTA 200/25 PO SCH (09:09)
[2016-11-13] MEDS: ASCORBIC ACID 500 MG TABLET PO SCH (09:11)
[2016-11-13] MEDS: predniSONE 20 MG TABLET PO SCH (09:11)
[2016-11-13] MEDS: ISOSORBIDE MONONITRATE 120 MG TAB.SR.24H PO SCH (09:11)
[2016-11-13] MEDS: ASPIRIN 81 MG TAB.CHEW PO SCH (09:11)
[2016-11-13] MEDS: MULTIVITAMINS 1 CAP CAPSULE PO SCH (09:12)
[2016-11-13] MEDS: METOPROLOL SUCCINATE 100 MG TABLET.SA PO SCH (09:12)
[2016-11-13] MEDS: amLODIPine BESYLATE 5 MG TABLET PO SCH (09:12)
[2016-11-13] MEDS: ESCITALOPRAM OXALATE 10 MG TAB PO SCH ×2 (09:12→20:05)
[2016-11-13] MEDS: CALCIUM CARBONATE 500 MG TAB.CHEW PO SCH (09:13)
[2016-11-13] MEDS: CLOPIDOGREL BISULFATE 75 MG TABLET PO SCH (09:13)
[2016-11-13] MEDS: HEPARIN SODIUM,PORCINE 5,000 UNITS/ML VIAL SC SCH ×2 (11:02→22:38)
[2016-11-13] MEDS: SPIRIVA RESPIMAT PO SCH (13:53)
[2016-11-13] MEDS: LEVOFLOXACIN/D5W 750 MG/150 ML BAG IV SCH (14:23)
[2016-11-13] MEDS: ISOSORBIDE MONONITRATE 60 MG TAB.SR.24H PO SCH (20:04)
[2016-11-13] MEDS: hydrOXYzine HCL 25 MG TABLET PO SCH (20:05)
[2016-11-13] MEDS: SIMVASTATIN 20 MG TABLET PO SCH (20:05)
[2016-11-13] MEDS: CLORAZEPATE DIPOTASSIUM 3.75 MG TABLET PO SCH (20:06)
[2016-11-13] MEDS: traZODone HCL 50 MG TABLET PO PRN (22:38)
[2016-11-13] MEDS: ZOLPIDEM TARTRATE 5 MG TABLET PO PRN (22:38)
[2016-11-14] MEDS: ALBUTEROL SULFATE/IPRATROPIUM 3 ML NEBU IH SCH ×6 (02:31→22:22)
[2016-11-14 06:00] LABS: Hematocrit 33.2 % (37.0-47.0); Hemoglobin 10.5 gm/dL (12.5-16.0); Mean Cell Volume 89.7 fl (78-100); Mean Corpuscular Hemoglobin 28.4 pg (27-31); Mean Corpuscular Hgb Conc 31.6 g/dl (32-36); Mean Platelet Volume 8.7 fl (6.0-9.5); Neutrophil # 11.3 K/mm3 (1.3-6.0); Neutrophil % 73.4 % (42-75.0); Platelet Count 309 K/mm3 (150-450); Red Cell Distribution Width 14.3 % (11.5-14.0); White Blood Count 15.3 K/mm3 (4.0-10.5)
[2016-11-14] MEDS: PANTOPRAZOLE SODIUM 40 MG TABLET.EC PO SCH (06:37)
[2016-11-14] MEDS: ACETAMINOPHEN 325 MG TABLET PO PRN ×2 (06:40→22:42)
[2016-11-14] MEDS: CALCIUM CARBONATE 500 MG TAB.CHEW PO SCH (09:05)
[2016-11-14] MEDS: ISOSORBIDE MONONITRATE 120 MG TAB.SR.24H PO SCH (09:05)
[2016-11-14] MEDS: ASPIRIN 81 MG TAB.CHEW PO SCH (09:05)
[2016-11-14] MEDS: amLODIPine BESYLATE 5 MG TABLET PO SCH (09:05)
[2016-11-14] MEDS: ESCITALOPRAM OXALATE 10 MG TAB PO SCH ×2 (09:06→20:18)
[2016-11-14] MEDS: CLOPIDOGREL BISULFATE 75 MG TABLET PO SCH (09:06)
[2016-11-14] MEDS: ASCORBIC ACID 500 MG TABLET PO SCH (09:06)
[2016-11-14] MEDS: predniSONE 20 MG TABLET PO SCH (09:06)
[2016-11-14] MEDS: MULTIVITAMINS 1 CAP CAPSULE PO SCH (09:06)
[2016-11-14] MEDS: METOPROLOL SUCCINATE 100 MG TABLET.SA PO SCH (09:06)
[2016-11-14] MEDS: BREO ELLIPTA 200/25 PO SCH (09:07)
[2016-11-14] MEDS: HEPARIN SODIUM,PORCINE 5,000 UNITS/ML VIAL SC SCH ×2 (11:58→22:40)
[2016-11-14] MEDS: SPIRIVA RESPIMAT PO SCH (14:29)
[2016-11-14] MEDS: LEVOFLOXACIN/D5W 750 MG/150 ML BAG IV SCH (14:31)
[2016-11-14] MEDS: ISOSORBIDE MONONITRATE 60 MG TAB.SR.24H PO SCH (20:16)
[2016-11-14] MEDS: hydrOXYzine HCL 25 MG TABLET PO SCH (20:17)
[2016-11-14] MEDS: SIMVASTATIN 20 MG TABLET PO SCH (20:20)
[2016-11-14] MEDS: CLORAZEPATE DIPOTASSIUM 3.75 MG TABLET PO SCH (20:26)
[2016-11-14] MEDS: ZOLPIDEM TARTRATE 5 MG TABLET PO PRN (22:42)
--- NOTE | 2016-11-14 23:47 | PN ---
Subjective - Date and Time Seen Date: 11/14/16 Time: 16:00 Subjective Narrative: Shortness of breath improving. Still short of breath with ambulation. No chest pain, fever, chills, n/v. Objective - Vitals Vitals: Last Vital Signs Temp 36.8 C 11/14/16 21:00 Pulse 79 11/14/16 22:22 Resp 18 11/14/16 22:22 BP 127/64 11/14/16 21:00 Pulse Ox 96 11/14/16 22:22 - Abnormal Lab Findings Abnormal Lab Findings: Abnormal Lab Results 11/14/16 Range/Units 05:54 WBC 15.3 H (4.0-10.5) K/mm3 RBC 3.70 L (4.2-5.4) M/mm3 Hgb 10.5 L (12.5-16.0) gm/dL Hct 33.2 L (37.0-47.0) % MCHC 31.6 L (32-36) g/dl RDW 14.3 H (11.5-14.0) % Immature Gran % (Auto) 0.80 H (0.001-0.429) % Immature Gran # (Auto) 0.12 H (0.000-0.0310) K/mm3 Lymphocytes % 16.4 L (20-51) % Neutrophils # 11.3 H (1.3-6.0) K/mm3 Monocytes # 1.4 H (0.0-1.0) k/mm3 - Exam Constitutional: Present: Alert, Oriented x3, Cooperative ENT Exam: Present: hearing grossly normal Respiratory: Present: decreased breath sounds Cardiovascular/Chest: Present: regular rate, rhythm, no murmur Abdomen: Present: Normal bowel sounds, soft, nontender, nondistended Skin Exam: Present: normal color, warm/dry, no cyanosis Assessment/Plan Plan Narrative: Continue current treatment, making improvement. Encouraged continued ambulation in halls. Expect discharge tomorrow. - Problems/Diagnosis (1) Acute and chronic respiratory failure ([id number]) Problem: Acute (2) COPD exacerbation Problem: Acute
[2016-11-15] MEDS: traZODone HCL 50 MG TABLET PO PRN (00:34)
[2016-11-15] MEDS: ALBUTEROL SULFATE/IPRATROPIUM 3 ML NEBU IH SCH ×2 (03:14→06:18)
[2016-11-15 06:38] VITALS: BP 168/82
[2016-11-15] MEDS: PANTOPRAZOLE SODIUM 40 MG TABLET.EC PO SCH (07:03)
--- NOTE | 2016-11-15 08:39 | DS ---
(1) Acute and chronic respiratory failure ([id number]) Diagnosis(s): Lissette is an 80 yo female with acute on chronic respiratory failure. She is chronically on 2lpm of oxygen at home but was requiring 3lpm or greater from admission. She was started on Levaquin 750mg IV daily, IV solumedrol, and breathing treatments. She gradually improved and was weaned to her baseline oxygen. She was tapered to oral steroids. She worked on ambulating. After several days she was able to ambulate without significant shortness of breath and was discharged to home. Problem: Acute (2) COPD exacerbation Problem: Acute Procedures Performed: none Discharge Disposition: Home self care Disposition: Home self-care Condition: Fair Discharge Activity: Activity as tolerated Discharge Diet: General/regular food Referrals: Gume Varela DO [Staff Physician] - One Week (One time hospital follow up) Massiel Ortiz DO [Staff Physician] - (Next available, new patient. Sign release of record from PCP to transfer to Dr. Ortiz.) Problem Oriented Discharge Instructions to Patient/Family: Chronic Obstructive Pulmonary Disease Exacerbation, [id number] Additional Patient Instructions (free text): Follow-up appointment with Dr. Varela on November 20, 2016 at 10 AM. Follow-up appointment with Dr. Ortiz on December 13, 2016 at 2:[address] Ortiz's nurse is sending you a new patient packet in mail for you to fill out and bring with you to your appointment. Prescriptions (Any new or edited meds): ALPRAZolam [Xanax] 0.5 mg PO Q6H PRN #60 tablet PRN Reason: restlessness/anxiety Levofloxacin [Levaquin] 750 mg PO DAILY #7 tablet Metoprolol Succinate [Toprol Xl] 100 mg PO DAILY #30 tablet.sa guaiFENesin [Mucinex] 1,200 mg PO BID #60 tablet.sa predniSONE [Prednisone] 40 mg PO DAILY #70 tab Complete Home Medications List: Complete Home Medication List: Albuterol Sulfate [Proair Hfa] 2 puff IH Q4H PRN 05/20/14 Escitalopram Oxalate [Lexapro] 10 mg PO DAILY 05/20/14 Pantoprazole Sodium [Protonix] 40 mg PO DAILY 05/20/14 Potassium Chloride [Klor-Con 10] 10 meq PO DAILY 05/20/14 Simvastatin [Zocor] 20 mg PO HS 05/20/14 Tiotropium [place] [Spiriva] 1 cap IH DAILY 05/20/14 Ubidecarenone [Coenzyme Q10] 1 cap PO DAILY 05/20/14 amLODIPine BESYLATE [Norvasc] 2.5 mg PO DAILY 05/20/14 Clorazepate Dipotassium [Tranxene] 7.5 mg PO BID 06/18/16 Zolpidem Tartrate [Ambien] 5 mg PO HS PRN 06/18/16 Azithromycin 250 mg PO 3XW 11/09/16 Clobetasol Propionate/Emoll [Clobetasol Emollient 0.05% Crm] 15 gm TP DAILY Clopidogrel Bisulfate [Plavix] 75 mg PO DAILY 11/09/16 Fluticasone/Vilanterol [Breo Ellipta 200-25 Mcg INH] 1 each IH DAILY 11/09/16 Ipratropium/Albuterol Sulfate [Iprat-Albut 0.5-3(2.5) mg/3 ml] 3 ml IH QID 11/09 Isosorbide Mononitrate [Isosorbide Mononitrate ER] 60 mg PO HS 11/09/16 Isosorbide Mononitrate [Isosorbide Mononitrate ER] 120 mg PO DAILY 11/09/16 Triamcinolone Acetonide [Kenalog 0.1%] 1 appl TP BID PRN 11/09/16 ALPRAZolam [Xanax] 0.5 mg PO Q6H PRN #60 tablet 11/15/16 Levofloxacin [Levaquin] 750 mg PO DAILY #7 tablet 11/15/16 Metoprolol Succinate [Toprol Xl] 100 mg PO DAILY #30 tablet.sa 11/15/16 guaiFENesin [Mucinex] 1,200 mg PO BID #60 tablet.sa 11/15/16 predniSONE [Prednisone] 40 mg PO DAILY #70 tab 11/15/16
[2016-11-15] MEDS: predniSONE 20 MG TABLET PO SCH (09:34)
[2016-11-15] MEDS: ESCITALOPRAM OXALATE 10 MG TAB PO SCH (09:34)
[2016-11-15] MEDS: ASPIRIN 81 MG TAB.CHEW PO SCH (09:34)
[2016-11-15] MEDS: ISOSORBIDE MONONITRATE 120 MG TAB.SR.24H PO SCH (09:34)
[2016-11-15] MEDS: ASCORBIC ACID 500 MG TABLET PO SCH (09:34)
[2016-11-15] MEDS: CALCIUM CARBONATE 500 MG TAB.CHEW PO SCH (09:35)
[2016-11-15] MEDS: BREO ELLIPTA 200/25 PO SCH (09:35)
[2016-11-15] MEDS: METOPROLOL SUCCINATE 100 MG TABLET.SA PO SCH (09:35)
[2016-11-15] MEDS: amLODIPine BESYLATE 5 MG TABLET PO SCH (09:35)
[2016-11-15] MEDS: CLOPIDOGREL BISULFATE 75 MG TABLET PO SCH (09:35)
[2016-11-15] MEDS: MULTIVITAMINS 1 CAP CAPSULE PO SCH (09:35)
--- NOTE | 2016-12-17 07:23 | PN ---
Subjective - Date and Time Seen Date: 11/12/16 Time: 16:45 Subjective Narrative: Continues to have shortness of breath, unable to ambulate, mostly in bed. No fever, chills, n/v. Objective - Vitals Vitals: Last Vital Signs Temp 36.5 C 11/15/16 06:00 Pulse 68 11/15/16 09:35 Resp 16 11/15/16 06:28 BP 168/82 11/15/16 09:35 Pulse Ox 98 11/15/16 06:18 - Exam Constitutional: Present: Alert, Oriented x3, Cooperative ENT Exam: Present: hearing grossly normal Respiratory: Present: decreased breath sounds, wheezing Cardiovascular/Chest: Present: regular rate, rhythm, no murmur Abdomen: Present: Normal bowel sounds, soft, nontender, nondistended Assessment/Plan Plan Narrative: Patient feeling better gradually. Continue antibiotics, steroids, breathing treatments. Not ambulating due to shortness of breath at this time, will need 2- 3 more days expected to improve and strengthen. - Problems/Diagnosis (1) Acute and chronic respiratory failure ([id number]) Problem: Acute (2) COPD exacerbation Problem: Acute
== END 2016-11-15 09:59 | disposition home or self-care (01) | DRG 189 ==
LOC: ER 15:56 → MS 18:37 → OBSVTOIN 18:37
PROVIDERS: ADMIT Family Medicine; ATTEND Family Medicine
PROC: 4A033R1 Measurement of Arterial Saturation, Peripheral, Percutaneous Approach (ICD-10-PCS; principal; 2016-11-08)
DX: J96.21 Acute and chronic respiratory failure with hypoxia (principal); J44.1 Chronic obstructive pulmonary disease with (acute) exacerbation; E86.0 Dehydration; F41.9 Anxiety disorder, unspecified; I10 Essential (primary) hypertension; E78.5 Hyperlipidemia, unspecified; F41.8 Other specified anxiety disorders; Z99.81 Dependence on supplemental oxygen

== ENCOUNTER 2017-03-24 15:06 | Emergency (ER) | payer MEDICARE ==
[2017-03-24] MEDS ORDERED: oxyCODONE HCL/ACETAMINOPHEN 1 TAB TABLET PO ONE ×2 (15:42→16:31)
[2017-03-24] MEDS ORDERED: oxyCODONE HCL/ACETAMINOPHEN 1 TAB TABLET ONE ×2 (15:52→16:31)
[2017-03-24 15:55] LABS: Hematocrit 39.7 % (37.0-47.0); Hemoglobin 12.2 gm/dL (12.5-16.0); Mean Cell Volume 87.8 fl (78-100); Mean Corpuscular Hgb Conc 30.7 g/dl (32-36); Mean Platelet Volume 8.5 fl (6.0-9.5); Neutrophil # 6.5 K/mm3 (1.3-6.0); Neutrophil % 86.3 % (42-75.0); Platelet Count 288 K/mm3 (150-450); Red Blood Count 4.52 M/mm3 (4.2-5.4); Red Cell Distribution Width 13.9 % (11.5-14.0); White Blood Count 7.5 K/mm3 (4.0-10.5)
[2017-03-24 16:08] LABS: Albumin * 3.9 gm/dl (3.4-5.0); Anion Gap 15.1 mmol/L (6.8-13.8); BUN/Creatinine Ratio 8.5 (9.0-21.6); Bilirubin, Total 0.3 mg/dL (0.0-1.1); Ca. Corrected For Albumin 8.8 mg/dL (8.4-10.2); Potassium 4.1 mmol/L (3.4-4.6); Total Protein 7.5 gm/dL (6.2-8.2)
--- NOTE | 2017-03-24 16:24 | ERNOTE ---
Medical Problem HPI - Narrative Date of Service: 03/24/17 - General Chief Complaint: General Assessment Time Seen by Provider: 03/24/17 15:18 Source: patient, family, RN notes reviewed, old records Exam Limitations: no limitations - Immun/Allergies/Home Medications Immunizations: IMMUNIZATION HX Immunizations Up to Date Yes History of Influenza Vaccine Yes Hx Pneumococcal Vaccination Yes Allergies/Adverse Reactions: Allergies ibuprofen Adverse Reaction (Verified 03/24/17 15:15) Home Medications: HOME MEDICATIONS Albuterol Sulfate [Proair Hfa] 2 puff IH Q4H PRN 05/20/14 [Last Taken Unknown] Escitalopram Oxalate [Lexapro] 10 mg PO DAILY 05/20/14 [Last Taken 05/20/14 17: 00] Pantoprazole Sodium [Protonix] 40 mg PO DAILY 05/20/14 [Last Taken 05/20/14 07: 00] Potassium Chloride [Klor-Con 10] 10 meq PO DAILY 05/20/14 [Last Taken 05/20/14 07:00] Simvastatin [Zocor] 20 mg PO HS 05/20/14 [Last Taken 05/20/14 20:00] Tiotropium [place] [Spiriva] 1 cap IH DAILY 05/20/14 [Last Taken 05/20/14 08:00] Ubidecarenone [Coenzyme Q10] 1 cap PO DAILY 05/20/14 [Last Taken 05/20/14 07:00] amLODIPine BESYLATE [Norvasc] 2.5 mg PO DAILY 05/20/14 [Last Taken 05/20/14 07: 00] Clorazepate Dipotassium [Tranxene] 7.5 mg PO BID 06/18/16 [Last Taken Unknown] Zolpidem Tartrate [Ambien] 5 mg PO HS PRN 06/18/16 [Last Taken Unknown] Azithromycin 250 mg PO 3XW 11/09/16 [Last Taken Unknown] Clobetasol Propionate/Emoll [Clobetasol Emollient 0.05% Crm] 15 gm TP DAILY [Last Taken Unknown] Clopidogrel Bisulfate [Plavix] 75 mg PO DAILY 11/09/16 [Last Taken Unknown] Fluticasone/Vilanterol [Breo Ellipta 200-25 Mcg INH] 1 each IH DAILY 11/09/16 [ Last Taken Unknown] Ipratropium/Albuterol Sulfate [Iprat-Albut 0.5-3(2.5) mg/3 ml] 3 ml IH QID 11/09 [Last Taken Unknown] Isosorbide Mononitrate [Isosorbide Mononitrate ER] 60 mg PO HS 11/09/16 [Last Taken Unknown] Isosorbide Mononitrate [Isosorbide Mononitrate ER] 120 mg PO DAILY 11/09/16 [ Last Taken Unknown] Triamcinolone Acetonide [Kenalog 0.1%] 1 appl TP BID PRN 11/09/16 [Last Taken Unknown] ALPRAZolam [Xanax] 0.5 mg PO Q6H PRN #60 tablet 11/15/16 [Last Taken Unknown] Levofloxacin [Levaquin] 750 mg PO DAILY #7 tablet 11/15/16 [Last Taken Unknown] Metoprolol Succinate [Toprol Xl] 100 mg PO DAILY #30 tablet.sa 11/15/16 [Last Taken Unknown] predniSONE [Prednisone] 40 mg PO DAILY #70 tab 11/15/16 [Last Taken Unknown] oxyCODONE HCL/ACETAMINOPHEN [Percocet 5 MG/325 MG] 1 - 2 tab PO Q6H PRN #20 tab 03/24/17 [Last Taken Unknown] - Pain Score Pain Score #1 Pain Score: 10 - History of Present History Narrative: 81 year old female brought to the ED by her daughter for severe, generalized pain. This began gradually over the past few days. She received a Prolia injection on 03/06/17. This was the first time she had been given this medication. She has also had more shortness of breath than normal for the past few days. She has end stage COPD. Timing: constant, getting worse Severity: severe Review of Systems - Review of Systems Constitutional: Present: recent illness, fatigue, decreased activity level EYE: Present: no symptoms reported ENT: Present: no symptoms reported Respiratory: Present: shortness of breath, cough, wheezing. Absent: orthopnea Cardiology: Absent: chest pain, syncope, edema Gastrointestinal/Abdominal: Absent: nausea, vomiting, abdominal pain Genitourinary: Present: no symptoms reported Musculoskeletal: Present: muscle pain, joint pain. Absent: joint swelling Skin: Absent: rash, lesions, lumps, change in color Neurological: Absent: headache, dizziness/light-headedness, weakness, numbness, tingling Endocrine: Present: no symptoms reported Hematologic/Lymphatic: Present: easy bruising, easy bleeding Psych: Present: no symptoms reported - Patient's Past Medical History Patient History - Medical: Anxiety, Depression, GERD, Other Patient History - Cardiac/Respiratory: Asthma, CHF, COPD, Hypertension, Myocardial Infarction, Home O2 Use Patient History - Cancer: Breast Patient History - Surgical Procedures: Cancer Surgery, Cataracts, Other Patient History - Other: None LMP (females 10-50): Menopausal - Family History Mother Family History - Medical: Family History - Cardiac/Respiratory: No pertinent hx Family History - Cancer: Cervical Father Family History - Medical: Family History - Cardiac/Respiratory: Myocardial Infarction Family History - Cancer: No pertinent family hx - Social History Living Situations: spouse - and daughter Abuse History: No History of abuse Psych History: Hx of Anxiety, Hx of Depression Smoking Status: Former smoker Alcohol Use: none Drug Use: none - Immunizations Immunizations Up to Date: Yes Hx Pneumococcal Vaccination: Yes History of Influenza Vaccine: Yes Physical Exam - Physical Exam General Appearance: Present: alert, mild distress, thin Neck: Present: normal inspection, supple Respiratory: Present: respiratory distress, accessory muscle use, decreased breath sounds, expiration (prolonged), rhonchi, other - Unable to speak in complete sentences, pursed lip breathing Cardiovascular/Chest: Present: normal peripheral pulses, tachycardia, systolic murmur Extremity Exam: Present: decreased range of motion - d/t pain. Absent: joint swelling, extremity edema Neurological Exam: Present: alert, oriented, normal mood/affect, no motor/ sensory deficits Skin Exam: Present: warm/dry, pallor ED Progress - Results and Orders Patient's Lab Results:: I have reviewed the patient's lab results. - Vital Signs Patient's Vital Signs:: I have reviewed the patient's vital signs. Vital Signs: Vital Signs 03/24/17 15:10 Temperature 36.2 C L Pulse Rate 101 H Respiratory 14 Rate Blood Pressure 129/71 O2 Sat by Pulse 95 Oximetry - X-Ray X-Ray #1 X-Ray: chest Interpretation: Reviewed by me X-ray Comments: Chest PA Lateral * Hyperinflated lung volumes, with hyperlucent appearance of the lungs suggestive of underlying COPD/ emphysema, stable. No consolidation or mass. There is increased peripheral linear lung markings especially at the lung bases bilaterally. No pneumothorax or pleural fluid collections. Cardiac size within normal limits. Atherosclerotic vascular calcifications projecting over the thoracic aorta, stable. Trachea is in normal position. Bones show degenerative changes of the spine. Decreased mineralization of bone suggestive of underlying osteopenia or osteoporosis. IMPRESSION: 1. No definite focal consolidation. 2. Peripheral increased lung markings. Consider diffuse pneumonitis or interstitial edema. 3. Stable findings suggestive of COPD/emphysema. 4. Additional comments are as above. Electronically signed by Kelli Lambert M.D.. - Progress/Reassessment Chief Complaint: General Assessment Progress:: Improved Progress Note-Subjective: 03/24/17 16:32 Appears slightly more comfortable after 1 Percocet but still having severe pain when she attempts to stand. Second tab ordered. Discussed lab/xray results. 03/24/17 17:20 Reports that pain is much better after the 2nd Percocet. She is able to ambulate short distances. Her shortness of breath has also improved with the improved pain. Departure Clinical Impression: Medication side effect Qualifiers: Encounter type: initial encounter Qualified Code(s): T88.7XXA - Unspecified adverse effect of drug or medicament, initial encounter - Departure Disposition: Home Follow Up Needed Condition: Stable Additional Instructions: Contact Dr. Ortiz about pain d/t Prolia tomorrow Be careful with pain medication - can cause drowsiness, dizziness, unsteady gait , upset stomach and CONSTIPATION. Do not take Tylenol with it. Referrals: Massiel Ortiz DO [Primary Care Provider] - Prescriptions: oxyCODONE HCL/ACETAMINOPHEN [Percocet 5 MG/325 MG] 1 - 2 tab PO Q6H PRN #20 tab PRN Reason: Pain
[2017-03-24 16:36] VITALS: BP 125/67
== END 2017-03-24 17:30 | disposition home or self-care (01) ==
LOC: ER 15:06
DX: T88.7XXA Unspecified adverse effect of drug or medicament, initial encounter (principal); K21.9 Gastro-esophageal reflux disease without esophagitis; I50.9 Heart failure, unspecified; J44.9 Chronic obstructive pulmonary disease, unspecified; I10 Essential (primary) hypertension; I25.2 Old myocardial infarction; F41.8 Other specified anxiety disorders; Z85.3 Personal history of malignant neoplasm of breast

== ENCOUNTER 2017-05-23 09:08 | Emergency (ER) | payer MEDICARE ==
--- NOTE | 2017-05-23 10:16 | ERNOTE ---
Dyspnea - General Presenting Symptoms: shortness of breath Time Seen by Provider: 05/23/17 10:02 Source: patient Exam Limitations: no limitations - Immun/Allergies/Home Medications Immunizations: IMMUNIZATION HX Immunizations Up to Date Yes History of Influenza Vaccine Yes Hx Pneumococcal Vaccination Yes Allergies/Adverse Reactions: Allergies ibuprofen Adverse Reaction (Verified 05/23/17 09:23) Home Medications: HOME MEDICATIONS Albuterol Sulfate [Proair Hfa] 2 puff IH Q4H PRN 05/20/14 [Last Taken Unknown] Escitalopram Oxalate [Lexapro] 10 mg PO DAILY 05/20/14 [Last Taken 05/20/14 17: 00] Pantoprazole Sodium [Protonix] 40 mg PO DAILY 05/20/14 [Last Taken 05/20/14 07: 00] Potassium Chloride [Klor-Con 10] 10 meq PO DAILY 05/20/14 [Last Taken 05/20/14 07:00] Simvastatin [Zocor] 20 mg PO HS 05/20/14 [Last Taken 05/20/14 20:00] Tiotropium [place] [Spiriva] 1 cap IH DAILY 05/20/14 [Last Taken 05/20/14 08:00] Ubidecarenone [Coenzyme Q10] 1 cap PO DAILY 05/20/14 [Last Taken 05/20/14 07:00] amLODIPine BESYLATE [Norvasc] 2.5 mg PO DAILY 05/20/14 [Last Taken 05/20/14 07: 00] Clorazepate Dipotassium [Tranxene] 7.5 mg PO BID 06/18/16 [Last Taken Unknown] Zolpidem Tartrate [Ambien] 5 mg PO HS PRN 06/18/16 [Last Taken Unknown] Azithromycin 250 mg PO 3XW 11/09/16 [Last Taken Unknown] Clobetasol Propionate/Emoll [Clobetasol Emollient 0.05% Crm] 15 gm TP DAILY [Last Taken Unknown] Clopidogrel Bisulfate [Plavix] 75 mg PO DAILY 11/09/16 [Last Taken Unknown] Fluticasone/Vilanterol [Breo Ellipta 200-25 Mcg INH] 1 each IH DAILY 11/09/16 [ Last Taken Unknown] Ipratropium/Albuterol Sulfate [Iprat-Albut 0.5-3(2.5) mg/3 ml] 3 ml IH QID 11/09 [Last Taken Unknown] Isosorbide Mononitrate [Isosorbide Mononitrate ER] 60 mg PO HS 11/09/16 [Last Taken Unknown] Isosorbide Mononitrate [Isosorbide Mononitrate ER] 120 mg PO DAILY 11/09/16 [ Last Taken Unknown] Triamcinolone Acetonide [Kenalog 0.1%] 1 appl TP BID PRN 11/09/16 [Last Taken Unknown] ALPRAZolam [Xanax] 0.5 mg PO Q6H PRN #60 tablet 11/15/16 [Last Taken Unknown] Levofloxacin [Levaquin] 750 mg PO DAILY #7 tablet 11/15/16 [Last Taken Unknown] Metoprolol Succinate [Toprol Xl] 100 mg PO DAILY #30 tablet.sa 11/15/16 [Last Taken Unknown] predniSONE [Prednisone] 40 mg PO DAILY #70 tab 11/15/16 [Last Taken Unknown] oxyCODONE HCL/ACETAMINOPHEN [Percocet 5 MG/325 MG] 1 - 2 tab PO Q6H PRN #20 tab 03/24/17 [Last Taken Unknown] Levofloxacin [Levaquin] 500 mg PO DAILY #7 tablet 05/23/17 [Last Taken Unknown] predniSONE [Prednisone] 4 tab PO DAILY #40 tab 05/23/17 [Last Taken Unknown] - History of Present Illness Narrative: Patient states that she got up this morning, had a breathing treatment and was ready to have breakfast when she started to have central chest pain and shortness of breath. She doesn't think that her cough is much worse than usual, denies any URI symptoms, no nausea, no vomiting. When she got here the nurse reports that her oxygen was not connected. Date (Duration): 05/23/17 Time (Timing): 06:00 Severity: moderate Treatment ACQUISITION LEAD: oxygen, albuterol Initiating event: Denies: upper resp illness, out of meds, sports/exercise, exposure to smoke Frequency of episodes: Reports: occassional episodes Modifying Factors - (Improves): Reports: albuterol Modifying Factors (Worsens): Reports: activity Associated Symptoms-Dyspnea: Denies: fever/chills Prior Treatment: Reports: recently seen Review of Systems - Review of Systems Constitutional: Absent: recent illness, fever ENT: Absent: nose congestion Respiratory: Present: See HPI, shortness of breath, cough Cardiology: Present: See HPI Gastrointestinal/Abdominal: Absent: nausea, vomiting, abdominal pain Genitourinary: Present: no symptoms reported Neurological: Present: anxiety. Absent: headache - Patient's Past Medical History Patient History - Medical: Anxiety, Depression, GERD, Other Patient History - Cardiac/Respiratory: Asthma, CHF, COPD, Hypertension, Hyperlipidemia, Myocardial Infarction, Home O2 Use Patient History - Cancer: Breast Patient History - Surgical Procedures: Cancer Surgery, Cataracts, Other Patient History - Other: None LMP (females 10-50): Menopausal - Family History Mother Family History - Medical: Family History - Cardiac/Respiratory: No pertinent hx Family History - Cancer: Cervical Father Family History - Medical: Family History - Cardiac/Respiratory: Myocardial Infarction Family History - Cancer: No pertinent family hx - Social History Living Situations: home Abuse History: No History of abuse Psych History: Hx of Anxiety, Hx of Depression Smoking Status: Former smoker Alcohol Use: none Drug Use: none - Immunizations Immunizations Up to Date: Yes Hx Pneumococcal Vaccination: Yes History of Influenza Vaccine: Yes Physical Exam - Physical Exam General Appearance: Present: wd/wn, alert, no apparent distress Head Exam: Present: normal inspection Eye Exam: Normal inspection: bilateral, PERRL: bilateral Ears, Nose, Throat: Present: normal ENT inspection, normal pharynx Respiratory: Present: decreased breath sounds, expiration (prolonged) Cardiovascular/Chest: Present: no murmur, tachycardia Extremity Exam: Present: no edema Neurological Exam: Present: alert, oriented, normal mood/affect Skin Exam: Present: normal color, warm/dry ED Progress - Results and Orders Patient's Lab Results:: I have reviewed the patient's lab results. - Vital Signs Patient's Vital Signs:: I have reviewed the patient's vital signs. Vital Signs: Vital Signs 05/23/17 05/23/17 09:17 09:39 Temperature 37.0 C Pulse Rate 114 H 115 H Respiratory 33 H 31 H Rate Blood Pressure 151/102 134/75 O2 Sat by Pulse 85 L 97 Oximetry - EKG EKG: NSR - sinustachy EKG read: Interp. by me - X-Ray X-Ray #1 X-Ray: chest - no acute findings Interpretation: Reviewed by me - Progress/Reassessment Chief Complaint: Dyspnea Progress Note-Subjective: 05/23/17 11:40 patient now states that she recently got off a prednisone taper, took her last dose yesterday, is not on any antibiotics currently discussed test results with patient, offered admission for COPD exacerbation, patient would prefer to go home Departure Clinical Impression: COPD exacerbation - Departure Disposition: Home self-care Condition: Stable Instructions: Chronic Obstructive Pulmonary Disease Exacerbation, [id number] Referrals: Massiel Ortiz DO [Primary Care Provider] - Prescriptions: Levofloxacin [Levaquin] 500 mg PO DAILY #7 tablet predniSONE [Prednisone] 4 tab PO DAILY #40 tab
[2017-05-23 10:25] LABS: Hematocrit 37.9 % (37.0-47.0); Hemoglobin 11.7 gm/dL (12.5-16.0); Mean Cell Volume 86.5 fl (78-100); Mean Corpuscular Hemoglobin 26.7 pg (27-31); Mean Corpuscular Hgb Conc 30.9 g/dl (32-36); Mean Platelet Volume 8.7 fl (6.0-9.5); Neutrophil # 9.2 K/mm3 (1.3-6.0); Neutrophil % 80.8 % (42-75.0); Platelet Count 267 K/mm3 (150-450); Red Blood Count 4.38 M/mm3 (4.2-5.4); Red Cell Distribution Width 14.8 % (11.5-14.0); White Blood Count 11.4 K/mm3 (4.0-10.5)
[2017-05-23 10:37] LABS: Prothrombin Time (Patient) 9.8 Seconds (9.0-11.0)
[2017-05-23 10:42] LABS: INR 0.98 INR (0.90-1.10); Partial Thrombolplastin Time 24.2 Seconds (24-32)
[2017-05-23 10:45] LABS: Troponin I 0.028 ng/ml (0.00-0.10)
[2017-05-23 10:46] LABS: Albumin * 3.5 gm/dl (3.4-5.0); Anion Gap 9.8 mmol/L (6.8-13.8); BUN/Creatinine Ratio 19.4 (9.0-21.6); Bilirubin, Total 0.3 mg/dL (0.0-1.1); Ca. Corrected For Albumin 9.2 mg/dL (8.4-10.2); Calcium * 9.1 mg/dL (7.9-10.9); Potassium 3.8 mmol/L (3.4-4.6)
[2017-05-23 11:36] VITALS: BP 136/88
[2017-05-23] MEDS ORDERED: predniSONE 20 MG TABLET PO ONE (11:44)
[2017-05-23] MEDS ORDERED: LEVOFLOXACIN 500 MG TABLET PO ONE (11:45)
[2017-05-23] MEDS ORDERED: LEVOFLOXACIN 500 MG TABLET ONE (11:47)
[2017-05-23] MEDS ORDERED: predniSONE 20 MG TABLET ONE (11:47)
== END 2017-05-23 11:55 | disposition home or self-care (01) ==
LOC: ER 09:08
DX: J44.1 Chronic obstructive pulmonary disease with (acute) exacerbation; I25.2 Old myocardial infarction; Z87.891 Personal history of nicotine dependence; Z85.3 Personal history of malignant neoplasm of breast

== ENCOUNTER 2017-11-28 11:21 | Observation (INO) | payer MEDICARE ==
[2017-11-28 11:50] LABS: Hematocrit 37.5 % (37.0-47.0); Hemoglobin 11.4 gm/dL (12.5-16.0); Mean Cell Volume 87.8 fl (78-100); Mean Corpuscular Hemoglobin 26.7 pg (27-31); Mean Corpuscular Hgb Conc 30.4 g/dl (32-36); Mean Platelet Volume 8.7 fl (8-12.5); Neutrophil # 4.9 K/mm3 (1.3-6.0); Neutrophil % 64.9 % (42-75.0); Platelet Count 306 K/mm3 (150-450); Red Blood Count 4.27 M/mm3 (4.2-5.4); Red Cell Distribution Width 16.6 % (11.5-14.0); White Blood Count 7.6 K/mm3 (4.0-10.5)
[2017-11-28 12:01] LABS: Prothrombin Time (Patient) 9.9 Seconds (9.0-11.0)
[2017-11-28 12:07] LABS: INR 0.99 INR (0.90-1.10); Partial Thrombolplastin Time 23.6 Seconds (24-32)
[2017-11-28 12:08] LABS: ALT 17 U/L (19-67); AST 16 U/L (0-48); Albumin * 3.5 gm/dl (3.4-5.0); Alkaline Phosphatase * 52 U/L (50-170); Anion Gap 11.4 mmol/L (6.8-13.8); BUN/Creatinine Ratio 19.4 (9.0-21.6); Bilirubin, Total 0.5 mg/dL (0.0-1.1); Blood Urea Nitrogen 14 mg/dL (3-23); Ca. Corrected For Albumin 8.8 mg/dL (8.4-10.2); Calcium * 8.7 mg/dL (7.9-10.9); Carbon Dioxide 31.8 mmol/L (24-32.6); Chloride 101 mmol/L (97-106); Glucose * 107 mg/dL (70-110); Potassium 4.2 mmol/L (3.4-4.6); Sodium 140 mmol/L (132-142); Total Protein 6.8 gm/dL (6.2-8.2); Troponin I Less than 0.017 ng/ml (0.00-0.10)
[2017-11-28] MEDS ORDERED: ASPIRIN 325 MG TABLET.DR PO ONE (13:03)
[2017-11-28] MEDS ORDERED: ASPIRIN 325 MG TABLET.DR ONE (13:04)
--- NOTE | 2017-11-28 13:13 | ERNOTE ---
Chest Pain/Cardiac HPI Date of Service: 11/28/17 Chief Complaint: Chest Pain Time Seen by Provider: 11/28/17 11:46 Source: patient Exam Limitations: no limitations Immunizations: IMMUNIZATION HX Immunizations Up to Date Yes History of Influenza Vaccine Yes Hx Pneumococcal Vaccination No Allergies/Adverse Reactions: Allergies ibuprofen Adverse Reaction (Verified 11/28/17 11:33) Home Medications: HOME MEDICATIONS Escitalopram Oxalate [Lexapro] 10 mg PO DAILY 05/20/14 [Last Taken 05/20/14 17: 00] Pantoprazole Sodium [Protonix] 40 mg PO DAILY 05/20/14 [Last Taken 05/20/14 07: 00] Potassium Chloride [Klor-Con 10] 10 meq PO DAILY 05/20/14 [Last Taken 05/20/14 07:00] amLODIPine BESYLATE [Norvasc] 5 mg PO DAILY 05/20/14 [Last Taken 05/20/14 07:00] Clorazepate Dipotassium [Tranxene] 7.5 mg PO DAILY 06/18/16 [Last Taken Unknown] Zolpidem Tartrate [Ambien] 5 mg PO HS PRN 06/18/16 [Last Taken Unknown] Azithromycin 250 mg PO 3XW 11/09/16 [Last Taken Unknown] Clopidogrel Bisulfate [Plavix] 75 mg PO DAILY 11/09/16 [Last Taken Unknown] Isosorbide Mononitrate [Isosorbide Mononitrate ER] 60 mg PO HS 11/09/16 [Last Taken Unknown] Isosorbide Mononitrate [Isosorbide Mononitrate ER] 120 mg PO DAILY 11/09/16 [ Last Taken Unknown] ALPRAZolam [Xanax] 0.5 mg PO Q6H PRN #60 tab 11/15/16 [Last Taken Unknown] Metoprolol Succinate [Toprol Xl] 100 mg PO DAILY #30 tablet.sa 11/15/16 [Last Taken Unknown] predniSONE [Prednisone] 40 mg PO DAILY #70 tab 11/15/16 [Last Taken Unknown] oxyCODONE HCL/ACETAMINOPHEN [Percocet 5 MG/325 MG] 1 - 2 tab PO Q6H PRN #20 tab 03/24/17 [Last Taken Unknown] Aspirin [Aspirin Chewable] 81 mg PO DAILY 11/28/17 [Last Taken Unknown] Levothyroxine Sodium [Synthroid] 50 mcg PO DAILY 11/28/17 [Last Taken Unknown] Ranolazine [Ranexa] 500 mg PO BID 11/28/17 [Last Taken Unknown] Narrative: Patient presents to the ED for chest pain. She had chest pain this am that awoke her from sleep. It was across her anterior chest. It was initially severe. She took a NTG for it and it was slightly better. She tried to wait it out then took another NTG and the pain resolved. 30 minutes of pain with it or so, she is not exactly sure. No acute SOB, chronic cough. She does not recall being diaphoretic or nauseated. No DVT Sx or pleuritic pain. Pain now resolved. Timing: gone now Severity/Quality: severe Location: central Chest Pain Radiation: no radiation Activities at Onset: none Modifying Factors - Improves: Present: nitroglycerin Modifying Factors - Worsens: Present: nothing Aspirin Treatment Today: 81 mg x 1 Associated Symptoms: Present: cough. Absent: headache, vomiting, abdominal pain , back pain Prior Treatment: Denies: recently seen Review of Systems - Review of Systems Constitutional: Absent: fever ENT: Absent: sore throat Respiratory: Present: cough Cardiology: Present: chest pain Gastrointestinal/Abdominal: Absent: abdominal pain Skin: Absent: rash Neurological: Absent: weakness All Other Systems: All systems neg except as marked Social History: Preferred Language Macedonian Smoking Status Former smoker Abuse History No History of abuse Psych History Hx of Anxiety,Hx of Depression Alcohol Use none Drug Use none Physical Exam - Physical Exam General Appearance: Present: alert, no apparent distress Head Exam: Present: normal inspection, no evidence of injury Eye Exam: Normal inspection: bilateral, PERRL: bilateral Ears, Nose, Throat: Present: normal ENT inspection Neck: Present: normal inspection Respiratory: Present: no respiratory distress, no accessory muscle use, other - no active wheezing Cardiovascular/Chest: Present: regular rate, rhythm, normal peripheral pulses Gastrointestinal/Abdominal: Present: normal bowel sounds, nontender, nondistended, soft Back Exam: Absent: CVA tenderness (R), CVA tenderness (L) Extremity Exam: Present: other - no DVT findings Neurological Exam: Present: alert, no motor/sensory deficits Skin Exam: Present: normal color, warm/dry ED Progress - Results and Orders Patient's Lab Results:: I have reviewed the patient's lab results. - Vital Signs Patient's Vital Signs:: I have reviewed the patient's vital signs. Vital Signs: Vital Signs 11/28/17 11:28 11/28/17 12:16 11/28/17 12:57 Temperature 36.9 C Pulse Rate 84 77 76 Respiratory Rate 18 24 H 15 Blood Pressure 120/85 106/65 99/78 O2 Sat by Pulse Oximetry 98 95 95 - EKG EKG read: Interp. by me EKG Comments: NSR rate 80. Non-specific changes, no STEMI - X-Ray X-Ray #1 X-Ray: chest Interpretation: Interp. by me X-ray Comments: No acute process, I reviewed official radiology report and images. - Progress/Reassessment Chief Complaint: Chest Pain Progress Note-Subjective: 11/28/17 13:11 Patient CP free. I disucssed second troponin with her but she was not comfortable going home. GIvenher Hx of CAD I spoke with Dr Ortiz then Dr Pelayo. Dr Pelayo will admit obs for r/o. Nothing clinically would suggest PE, aortic dissection, PTX, pneumonia or other acute life threat. Departure Clinical Impression: Chest pain, CAD (coronary artery disease) - Departure Disposition: Still a patient Condition: Stable Referrals: Massiel Ortiz DO [Primary Care Provider] -
[2017-11-28] MEDS ORDERED: ZOLPIDEM TARTRATE 5 MG TABLET PO PRN (18:37)
[2017-11-28] MEDS ORDERED: ALPRAZolam 0.25 MG TABLET PO ONE (18:37)
[2017-11-28] MEDS ORDERED: oxyCODONE HCL/ACETAMINOPHEN 1 TAB TABLET PO PRN (18:37)
[2017-11-28] MEDS ORDERED: ALPRAZolam 0.5 MG TABLET PO PRN (18:37)
[2017-11-28] MEDS ORDERED: predniSONE 10 MG TABLET PO SCH (18:45)
--- NOTE | 2017-11-28 20:05 | HP ---
Chief Complaint - Chief Complaint Date of Service: 11/28/17 Time of Service: 20:03 Chief Complaint: chest pain History of Present Illness: Patient is an 81 yr old female who presented to the ED for chest pain. She states that this pain awoke her from her sleep, describing it like "having a belt around her chest." Denies radiation. She took one NTG for it and it was slightly better. She waited another 5 min then took an additional NTG and the pain resolved. She is chronically ill with advanced COPD on continuous O2 and a chronic cough. She denies associated diaphoresis or nausea. She does endorse a remote history of a "blood clot in her neck." Denies calf swelling or tenderness. She is currently without pain. Work up in the ER was essentially unremarkable. EKG was without evidence of STEMI, trop x2 negative. She has remained hemodynamically stable, however due to her advanced age and multiple medical co-morbidities, she will be admitted to observation overnight for continuous telemetry monitoring and lab work in the am. Medical History (Last Updated 11/28/17 @ 13:11 by Hyun Herr RN) Anal fissure Anxiety COPD (chronic obstructive pulmonary disease) Depression HLD (hyperlipidemia) HTN (hypertension) Pneumonia Social History: Patient Lives/Resources With Spouse Utilized Occupation [employer] Preferred Language Setswana Do you have any alevism or Yes: Bahai cultural preference? Smoking Status Former smoker Have you smoked in the past 12 No months Abuse History No History of abuse Psych History Hx of Anxiety,Hx of Depression Alcohol Use none Drug Use none Review Of Systems (GEN) - Review of Systems Generalized/Overall Review: Present: Weakness EENTM: Present: No Symptoms Reported Respiratory: Present: Cough, Shortness of Breath, Orthopnea, Wheezing Cardiac: Present: No Symptoms Reported Abdominal: Present: No Symptoms Reported Genitourinary: Present: No Symptoms Reported Musculoskeletal: Present: No Symptoms Reported Neurological: Present: Weakness Skin: Present: No Symptoms Reported Endocrine: Present: No Symptoms Reported Immunizations: IMMUNIZATION HX Immunizations Up to Date Yes History of Influenza Vaccine Yes Hx Pneumococcal Vaccination No Allergies/Adverse Reactions: Allergies Allergy/AdvReac Type Severity Reaction Status Date / Time ibuprofen AdvReac Verified 11/28/17 11:33 Home Medications: HOME MEDICATIONS Escitalopram Oxalate [Lexapro] 10 mg PO DAILY 05/20/14 [Last Taken 05/20/14 17: 00] Pantoprazole Sodium [Protonix] 40 mg PO DAILY 05/20/14 [Last Taken 05/20/14 07: 00] Potassium Chloride [Klor-Con 10] 10 meq PO DAILY 05/20/14 [Last Taken 05/20/14 07:00] amLODIPine BESYLATE [Norvasc] 5 mg PO DAILY 05/20/14 [Last Taken 05/20/14 07:00] Clorazepate Dipotassium [Tranxene] 7.5 mg PO DAILY 06/18/16 [Last Taken Unknown] Zolpidem Tartrate [Ambien] 5 mg PO HS PRN 06/18/16 [Last Taken Unknown] Azithromycin 250 mg PO MOWEFR 11/09/16 [Last Taken Unknown] Clopidogrel Bisulfate [Plavix] 75 mg PO DAILY 11/09/16 [Last Taken Unknown] Isosorbide Mononitrate [Isosorbide Mononitrate ER] 60 mg PO HS 11/09/16 [Last Taken Unknown] Isosorbide Mononitrate [Isosorbide Mononitrate ER] 180 mg PO DAILY 11/09/16 [ Last Taken Unknown] ALPRAZolam [Xanax] 0.5 mg PO Q6H PRN #60 tab 11/15/16 [Last Taken Unknown] Metoprolol Succinate [Toprol Xl] 100 mg PO DAILY #30 tablet.sa 11/15/16 [Last Taken Unknown] oxyCODONE HCL/ACETAMINOPHEN [Percocet 5 MG/325 MG] 1 - 2 tab PO Q6H PRN #20 tab 03/24/17 [Last Taken Unknown] Levothyroxine Sodium [Synthroid] 50 mcg PO DAILY 11/28/17 [Last Taken Unknown] Ranolazine [Ranexa] 500 mg PO BID 11/28/17 [Last Taken Unknown] Simvastatin 20 mg PO QPM 11/28/17 [Last Taken Unknown] predniSONE [Prednisone] 10 mg PO Q48H 11/28/17 [Last Taken Unknown] Exam - Exam Vital Signs: Vital Signs - Last Taken Temp 36.5 C 11/28/17 13:50 Pulse 70 11/28/17 13:55 Resp 26 H 11/28/17 13:55 BP 113/65 11/28/17 13:55 Pulse Ox 97 11/28/17 13:55 Constitutional: Present: Alert, Oriented x3, Cooperative, No distress, Elderly, Thin and frail ENT Exam: Present: normal ENT inspection, hearing grossly normal Eye Exam: bilateral eye: normal inspection Neck: Present: non-tender, full range of motion, supple Back Exam: Present: normal inspection, no CVA tenderness, no vertebral tenderness Breasts: Present: Exam deferred Respiratory: Present: chest non-tender, decreased breath sounds, crackles, rhonchi, wheezing, expiration (prolonged) Cardiovascular/Chest: Present: normal peripheral pulses, regular rate, rhythm, no chest tenderness, no edema, no gallop, no JVD, no murmur Peripheral Pulses: dorsalis-pedis (R): 2+, dorsalis-pedis (L): 2+, radial (R): 2 +, radial (L): 2+ Abdomen: Present: Normal bowel sounds, soft, nontender, nondistended, no rebound tenderness, no hepatospenomegaly /Rectal: Present: Exam deferred Extremity: Present: normal range of motion, non-tender, normal inspection, no pedal edema, no calf tenderness Skin Exam: Present: normal color, warm/dry, no cyanosis, skin rash - scattered psoriasis Lymphatic: Present: no adenopathy Neurologic: Present: no motor/sensory deficits, alert, normal mood/affect, oriented x 3 Appearance: Present: appropriate appearance, appropriate insight, neat, no memory impairment Eye contact: Present: cooperative, good eye contact, normal speech Thoughts: Present: normal thought pattern, no apparent hallucination Diagnostic Studies: Abnormal Lab Results 11/28/17 11/28/17 11/28/17 Range/Units 11:43 11:43 11:43 Hgb 11.4 L (12.5-16.0) gm/dL MCH 26.7 L (27-31) pg MCHC 30.4 L (32-36) g/dl RDW 16.6 H (11.5-14.0) % Lymphocytes % 18.8 L (20-51) % Monocytes % 10.4 H (0.0-9) % Eosinophils % 4.8 H (0.0-3.0) % Lymphocytes # 1.42 L (1.5-3.5) k/mm3 PTT ([place]) 23.6 L (24-32) Seconds ALT 17 L (19-67) U/L Laboratory Results WBC 7.6 K/mm3 (4.0-10.5) 11/28/17 11:43 RBC 4.27 M/mm3 (4.2-5.4) 11/28/17 11:43 Hgb 11.4 gm/dL (12.5-16.0) L 11/28/17 11:43 Hct 37.5 % (37.0-47.0) 11/28/17 11:43 MCV 87.8 fl (78-100) 11/28/17 11:43 MCH 26.7 pg (27-31) L 11/28/17 11:43 MCHC 30.4 g/dl (32-36) L 11/28/17 11:43 RDW 16.6 % (11.5-14.0) H 11/28/17 11:43 Plt Count 306 K/mm3 (150-450) 11/28/17 11:43 MPV 8.7 fl (8-12.5) 11/28/17 11:43 Immature Gran % (Auto) 0.30 % (0.001-0.429) 11/28/17 11:43 Immature Gran # (Auto) 0.02 K/mm3 (0.000-0.0310) 11/28/17 11:43 Neutrophils % 64.9 % (42-75.0) 11/28/17 11:43 Lymphocytes % 18.8 % (20-51) L 11/28/17 11:43 Monocytes % 10.4 % (0.0-9) H 11/28/17 11:43 Eosinophils % 4.8 % (0.0-3.0) H 11/28/17 11:43 Basophils % 0.8 % (0.0-1.0) 11/28/17 11:43 Nucleated RBC % 0.0 k/mm3 (0-1) 11/28/17 11:43 Neutrophils # 4.9 K/mm3 (1.3-6.0) 11/28/17 11:43 Lymphocytes # 1.42 k/mm3 (1.5-3.5) L 11/28/17 11:43 Monocytes # 0.8 k/mm3 (0.0-1.0) 11/28/17 11:43 Eosinophils # 0.4 k/mm3 (0.0-0.7) 11/28/17 11:43 Absolute Basophils 0.1 k/mm3 (0.0-0.1) 11/28/17 11:43 PT 9.9 Seconds (9.0-11.0) 11/28/17 11:43 INR (Anticoag Therapy) 0.99 INR (0.90-1.10) 11/28/17 11:43 PTT ([place]) 23.6 Seconds (24-32) L 11/28/17 11:43 Sodium 140 mmol/L (132-142) 11/28/17 11:43 Plasma Sodium 140 mmol/L (130-142) 11/28/17 11:43 Potassium 4.2 mmol/L (3.4-4.6) 11/28/17 11:43 Chloride 101 mmol/L (97-106) 11/28/17 11:43 Carbon Dioxide 31.8 mmol/L (24-32.6) 11/28/17 11:43 Anion Gap 11.4 mmol/L (6.8-13.8) 11/28/17 11:43 BUN 14 mg/dL (3-23) 11/28/17 11:43 Creatinine 0.72 mg/dL (0.4-1.4) 11/28/17 11:43 Est GFR (Non-Af Amer) 82 mL/min (60-130) 11/28/17 11:43 BUN/Creatinine Ratio 19.4 (9.0-21.6) 11/28/17 11:43 Random Glucose 107 mg/dL (70-110) 11/28/17 11:43 Calcium 8.7 mg/dL (7.9-10.9) 11/28/17 11:43 Calcium Adj for Albumin 8.8 mg/dL (8.4-10.2) 11/28/17 11:43 Total Bilirubin 0.5 mg/dL (0.0-1.1) 11/28/17 11:43 AST 16 U/L (0-48) 11/28/17 11:43 ALT 17 U/L (19-67) L 11/28/17 11:43 Alkaline Phosphatase 52 U/L (50-170) 11/28/17 11:43 Troponin I Less than 0.017 ng/ml (0.00-0.10) 11/28/17 11:43 Total Protein 6.8 gm/dL (6.2-8.2) 11/28/17 11:43 Albumin 3.5 gm/dl (3.4-5.0) 11/28/17 11:43 Assessment/Plan - Assessment/Plan (1) Chest pain Assessment: R/O ACS, more likely pulmonary related. No evidence of STEMI or infarct on EKG. Trop neg x2. - Telemetry - Admit to obs Problem: Acute (2) HTN (hypertension) Assessment: Stable - Continue home meds - VS Q4H Problem: Chronic Qualifiers: (3) HLD (hyperlipidemia) Assessment: Stable - Continue Zocor Problem: Chronic (4) Anxiety Assessment: - Continue Xanax Problem: Chronic (5) CAD (coronary artery disease) Assessment: - Plavix and ASA Problem: Acute (6) COPD (chronic obstructive pulmonary disease) Assessment: - Duonebs - Pulmicort - Supplement O2 at 2.5L NC Problem: Chronic Qualifiers: COPD type: unspecified COPD Qualified Code(s): J44.9 - Chronic obstructive pulmonary disease, unspecified
[2017-11-28] MEDS ORDERED: ALBUTEROL SULFATE/IPRATROPIUM 3 ML NEBU IH PRN (20:10)
[2017-11-28] MEDS ORDERED: FORMOTEROL FUMARATE 20 MCG/2 ML VIAL IH ONE (20:45)
[2017-11-28] MEDS ORDERED: predniSONE 20 MG TABLET ONE (20:47)
[2017-11-28] MEDS ORDERED: ISOSORBIDE MONONITRATE 30 MG TAB.SR.24H PO ONE (20:48)
[2017-11-28] MEDS ORDERED: FORMOTEROL FUMARATE 20 MCG/2 ML VIAL IH SCH (21:00)
[2017-11-28] MEDS ORDERED: ISOSORBIDE MONONITRATE 120 MG TAB.SR.24H PO SCH (21:00)
[2017-11-28] MEDS ORDERED: BUDESONIDE 0.5 MG/2 ML VIAL.NEB IH SCH (21:00)
[2017-11-28] MEDS: ALBUTEROL SULFATE/IPRATROPIUM 3 ML NEBU IH SCH (23:09)
[2017-11-29] MEDS: ALBUTEROL SULFATE/IPRATROPIUM 3 ML NEBU IH SCH ×4 (02:39→14:15)
[2017-11-29 05:29] LABS: Hematocrit 35.5 % (37.0-47.0); Hemoglobin 10.6 gm/dL (12.5-16.0); Mean Cell Volume 86.8 fl (78-100); Mean Corpuscular Hemoglobin 25.9 pg (27-31); Mean Corpuscular Hgb Conc 29.9 g/dl (32-36); Mean Platelet Volume 8.7 fl (8-12.5); Neutrophil # 4.4 K/mm3 (1.3-6.0); Neutrophil % 74.3 % (42-75.0); Platelet Count 274 K/mm3 (150-450); Red Blood Count 4.09 M/mm3 (4.2-5.4); Red Cell Distribution Width 16.5 % (11.5-14.0)
[2017-11-29 05:46] LABS: Albumin * 3.3 gm/dl (3.4-5.0); Anion Gap 8.4 mmol/L (6.8-13.8); BUN/Creatinine Ratio 16.4 (9.0-21.6); Bilirubin, Total 0.5 mg/dL (0.0-1.1); Ca. Corrected For Albumin 9.1 mg/dL (8.4-10.2); Calcium * 8.9 mg/dL (7.9-10.9); Carbon Dioxide 33.8 mmol/L (24-32.6); Potassium 5.2 mmol/L (3.4-4.6); Total Protein 6.4 gm/dL (6.2-8.2)
[2017-11-29] MEDS ORDERED: FORMOTEROL FUMARATE 20 MCG/2 ML VIAL IH SCH (07:00)
[2017-11-29] MEDS ORDERED: BUDESONIDE 0.5 MG/2 ML VIAL.NEB IH SCH (07:00)
[2017-11-29] MEDS: PANTOPRAZOLE SODIUM 40 MG TABLET.EC PO SCH ×2 (07:10→11:28)
[2017-11-29] MEDS: LEVOTHYROXINE SODIUM 50 MCG TABLET PO SCH ×2 (07:10→11:24)
[2017-11-29] MEDS ORDERED: METOPROLOL SUCCINATE 100 MG TABLET.SA PO SCH (09:00)
[2017-11-29] MEDS ORDERED: amLODIPine BESYLATE 5 MG TABLET PO SCH (09:00)
[2017-11-29] MEDS ORDERED: ISOSORBIDE MONONITRATE 120 MG TAB.SR.24H PO SCH (09:00)
[2017-11-29] MEDS ORDERED: AZITHROMYCIN 250 MG TABLET PO SCH (09:00)
[2017-11-29] MEDS ORDERED: ISOSORBIDE MONONITRATE 60 MG TAB.SR.24H PO SCH (09:00)
[2017-11-29] MEDS ORDERED: ESCITALOPRAM OXALATE 10 MG TAB PO SCH (09:00)
[2017-11-29] MEDS ORDERED: POTASSIUM CHLORIDE 10 MEQ TABLET.SA PO SCH (09:00)
[2017-11-29] MEDS ORDERED: CLOPIDOGREL BISULFATE 75 MG TABLET PO SCH (09:00)
--- NOTE | 2017-11-29 12:42 | DS ---
Description of Stay: Lissette Brown is an 81-year-old female patient who was awakened from sleep with chest pressure and tightness like a belt had been tightened around her chest. She has advanced COPD but became more acutely short of breath. She was brought to the hospital ER and evaluated. Her chest discomfort was relieved with nitroglycerin. She appeared to still be very dyspneic and very anxious. Because of her age and multiple core morbidities she was admitted to observation for chest pain rule out [place]. Serial troponins and EKG showed no evidence of myocardial injury. Most likely her chest tightness and shortness of breath are more related to her chronic lung disease. She is feeling better this morning although still quite anxious. She takes a great deal of medication including 3 different benzodiazepines. I will defer that to her PCP to evaluate. She will be discharged back to her home she'll be cared for by her daughter who lives with her. Procedures Performed: none Results and Findings: Lab Pending Results 11/28/17 11:43: WBC 7.6, RBC 4.27, Hgb 11.4 L, Hct 37.5, MCV 87.8, MCH 26.7 L, MCHC 30.4 L, RDW 16.6 H, Plt Count 306, MPV 8.7, Immature Gran % (Auto) 0.30, Immature Gran # (Auto) 0.02, Neutrophils % 64.9, Lymphocytes % 18.8 L, Monocytes % 10.4 H, Eosinophils % 4.8 H, Basophils % 0.8, Nucleated RBC % 0.0, Neutrophils # 4.9, Lymphocytes # 1.42 L, Monocytes # 0.8, Eosinophils # 0.4, Absolute Basophils 0.1 11/28/17 11:43: PT 9.9, INR (Anticoag Therapy) 0.99, PTT ([place]) 23.6 L 11/28/17 11:43: Sodium 140, Plasma Sodium 140, Potassium 4.2, Chloride 101, Carbon Dioxide 31.8, Anion Gap 11.4, BUN 14, Creatinine 0.72, Est GFR (Non-Af Amer) 82, BUN/Creatinine Ratio 19.4, Random Glucose 107, Calcium 8.7, Calcium Adj for Albumin 8.8, Total Bilirubin 0.5, AST 16, ALT 17 L, Alkaline Phosphatase 52, Troponin I Less than 0.017, Total Protein 6.8, Albumin 3.5 11/28/17 20:17: Troponin I Less than 0.017 11/29/17 05:25: Sodium 139, Plasma Sodium 140, Potassium 5.2 H D, Chloride 102, Carbon Dioxide 33.8 H, Anion Gap 8.4, BUN 12, Creatinine 0.73, Est GFR (Non-Af Amer) 81, BUN/Creatinine Ratio 16.4, Random Glucose 132 H, Calcium 8.9, Calcium Adj for Albumin 9.1, Total Bilirubin 0.5, AST 15, ALT 17 L, Alkaline Phosphatase 49 L, Total Protein 6.4, Albumin 3.3 L 11/29/17 05:25: WBC 6.0 D, RBC 4.09 L, Hgb 10.6 L, Hct 35.5 L, MCV 86.8, MCH 25.9 L, MCHC 29.9 L, RDW 16.5 H, Plt Count 274, MPV 8.7, Immature Gran % (Auto) 0.20, Immature Gran # (Auto) 0.01, Neutrophils % 74.3, Lymphocytes % 20.0, Monocytes % 4.5, Eosinophils % 0.5, Basophils % 0.5, Nucleated RBC % 0.0, Neutrophils # 4.4, Lymphocytes # 1.19 L, Monocytes # 0.3, Eosinophils # 0.0, Absolute Basophils 0.0 Discharge Location: Home Disposition: Home self-care Condition: Stable Face to Face Encounter completed per [facility] Guidelines: No Discharge Activity: Activity as tolerated Discharge Diet: General/regular food Referrals: Massiel Ortiz DO [Staff Physician] - Additional Patient Instructions (free text): -Please make TCM appointment unless long term discharge. Thank you! Desirae @ ext:[phone]. Prescriptions (Any new or edited meds): Formoterol Fumarate [Perforomist] 20 mcg IH BIDRT #1 vial Complete Home Medications List: Complete Home Medication List: Escitalopram Oxalate [Lexapro] 10 mg PO DAILY 05/20/14 Pantoprazole Sodium [Protonix] 40 mg PO DAILY 05/20/14 Potassium Chloride [Klor-Con 10] 10 meq PO DAILY 05/20/14 amLODIPine BESYLATE [Norvasc] 5 mg PO DAILY 05/20/14 Clorazepate Dipotassium [Tranxene] 7.5 mg PO DAILY 06/18/16 Zolpidem Tartrate [Ambien] 5 mg PO HS PRN 06/18/16 Azithromycin 250 mg PO MOWEFR 11/09/16 Clopidogrel Bisulfate [Plavix] 75 mg PO DAILY 11/09/16 Isosorbide Mononitrate [Isosorbide Mononitrate ER] 60 mg PO HS 11/09/16 Isosorbide Mononitrate [Isosorbide Mononitrate ER] 180 mg PO DAILY 11/09/16 ALPRAZolam [Xanax] 0.5 mg PO Q6H PRN #60 tab 11/15/16 Metoprolol Succinate [Toprol Xl] 100 mg PO DAILY #30 tablet.sa 11/15/16 oxyCODONE HCL/ACETAMINOPHEN [Percocet 5 MG/325 MG] 1 - 2 tab PO Q6H PRN #20 tab 03/24/17 Levothyroxine Sodium [Synthroid] 50 mcg PO DAILY 11/28/17 Ranolazine [Ranexa] 500 mg PO BID 11/28/17 Simvastatin 20 mg PO QPM 11/28/17 predniSONE [Prednisone] 10 mg PO Q48H 11/28/17 Albuterol Sulfate/Ipratropium [Duoneb 2.5-0.5MG/3ML Soln] 3 ml IH QID 11/29/17 Budesonide [Pulmicort Respules] 0.5 mg IH BID 11/29/17 Formoterol Fumarate [Perforomist] 20 mcg IH BID 11/29/17 Formoterol Fumarate [Perforomist] 20 mcg IH BIDRT #1 vial 11/29/17
[2017-11-29 13:40] VITALS: BP 98/57
[2017-11-29] MEDS ORDERED: SIMVASTATIN 20 MG TABLET PO SCH (17:00)
== END 2017-11-29 14:52 | disposition home or self-care (01) ==
LOC: ER 11:21 → MS 11:21
PROVIDERS: ADMIT Family Medicine; ATTEND Family Medicine
DX: R06.09 Other forms of dyspnea; E78.5 Hyperlipidemia, unspecified; J44.1 Chronic obstructive pulmonary disease with (acute) exacerbation; I24.9 Acute ischemic heart disease, unspecified; Z87.891 Personal history of nicotine dependence; F41.0 Panic disorder [episodic paroxysmal anxiety]; I10 Essential (primary) hypertension; Z68.22 Body mass index [BMI] 22.0-22.9, adult
CPT/HCPCS: 36415; 71020; 71046; 80053; 84484; 85025; 85610; 85730; 93005; 94640; 94664; 99284; G0378

== ENCOUNTER 2018-12-31 09:46 | Inpatient (IN) ==
[2018-12-31] MEDS ORDERED: MORPHINE SULFATE 2 MG/ML DISP.SYRIN IV ONE ×2 (09:58→10:36)
[2018-12-31 10:17] LABS: Hematocrit 29.2 % (37.0-47.0); Hemoglobin 8.5 gm/dL (12.5-16.0); Mean Cell Volume 84.4 fl (78-100); Mean Corpuscular Hemoglobin 24.6 pg (27-31); Mean Corpuscular Hgb Conc 29.1 g/dl (32-36); Mean Platelet Volume 8.6 fl (8-12.5); Neutrophil # 4.8 K/mm3 (1.3-6.0); Neutrophil % 70.9 % (42-75.0); Platelet Count 301 K/mm3 (150-450); Red Blood Count 3.46 M/mm3 (4.2-5.4); Red Cell Distribution Width 17.2 % (11.5-14.0); White Blood Count 6.8 K/mm3 (4.0-10.5)
[2018-12-31 10:25] LABS: Albumin * 3.2 gm/dl (3.4-5.0); Anion Gap 9.8 mmol/L (6.8-13.8); BUN/Creatinine Ratio 19.7 (9.0-21.6); Bilirubin, Total 0.4 mg/dL (0.0-1.1); Ca. Corrected For Albumin 9.2 mg/dL (8.4-10.2); Calcium * 8.9 mg/dL (7.9-10.9); Carbon Dioxide 33.5 mmol/L (24-32.6); Potassium 4.3 mmol/L (3.4-4.6); Total Protein 6.2 gm/dL (6.2-8.2)
--- NOTE | 2018-12-31 10:45 | ERNOTE ---
Lower Extremity HPI - Narrative Date of Service: 12/31/18 - General Lower Extremities Pain: hip: left Time Seen by Provider: 12/31/18 09:51 Source: patient, family, EMS Exam Limitations: no limitations - Immun/Allergies/Home Medications Immunizations: IMMUNIZATION HX Immunizations Up to Date Yes History of Influenza Vaccine Yes Hx Pneumococcal Vaccination Yes Allergies/Adverse Reactions: Allergies Allergy/AdvReac Type Severity Reaction Status Date / Time denosumab [From Prolia] Allergy Severe Verified 12/31/18 09:52 ibuprofen AdvReac Verified 12/31/18 09:52 Home Medications: HOME MEDICATIONS Azithromycin 250 mg PO MOWEFR 11/09/16 [Last Taken Unknown] predniSONE [Prednisone] 10 mg PO Q48H 11/28/17 [Last Taken Unknown] Albuterol Sulfate/Ipratropium [Duoneb 2.5-0.5MG/3ML Soln] 3 ml IH QID 11/29/17 [Last Taken Unknown] Budesonide [Pulmicort Respules] 0.5 mg IH BID 11/29/17 [Last Taken Unknown] Formoterol Fumarate [Perforomist] 20 mcg IH BIDRT #1 vial 11/29/17 [Last Taken Unknown] emollient combination no.97 topical ointment See Rx Instructions TP .COMPLEX #454 g 12/23/17 [Last Taken Unknown] nitroglycerin 0.4 mg sublingual tablet 0.4 mg SL Q5-15M PRN 12/23/17 [Last Taken Unknown] clopidogrel 75 mg tablet 75 mg PO DAILY #90 tab 04/16/18 [Last Taken Unknown] potassium chloride ER 10 mEq tablet,extended release 10 meq PO DAILY #90 tab 04/21/18 [Last Taken Unknown] alprazolam 0.5 mg tablet 0.5 mg PO TID PRN #90 tab 05/12/18 [Last Taken Unknown] Aspirin 81 mg PO DAILY 07/08/18 [Last Taken Unknown] predniSONE [Prednisone] 0 tab PO DAILY #9 tab 07/11/18 [Last Taken Unknown] simvastatin 20 mg tablet 20 mg PO QPM #90 tab 08/08/18 [Last Taken Unknown] metoprolol succinate ER 100 mg tablet,extended release 24 hr 100 mg PO DAILY #90 tab 08/14/18 [Last Taken Unknown] calcium carbonate-vitamin D3 600 mg (1,500 mg)-400 unit capsule 1 cap PO DAILY #90 cap 10/24/18 [Last Taken Unknown] amlodipine 5 mg tablet 5 mg PO DAILY #90 tab 11/06/18 [Last Taken Unknown] escitalopram 10 mg tablet 10 mg PO DAILY #90 tab 11/06/18 [Last Taken Unknown] isosorbide mononitrate ER 120 mg tablet,extended release 24 hr See Rx Instructions PO BID #180 tab 11/06/18 [Last Taken Unknown] levothyroxine 75 mcg tablet 75 mcg PO DAILY #90 tab 11/06/18 [Last Taken Unknown] ranolazine ER 500 mg tablet,extended release,12 hr 500 mg PO BID #180 tab 11/17/18 [Last Taken Unknown] clorazepate dipotassium 7.5 mg tablet 7.5 mg PO TID #270 tab 12/24/18 [Last Taken Unknown] ranitidine 150 mg capsule 150 mg PO DAILY #30 cap 12/24/18 [Last Taken Unknown] triamcinolone acetonide 0.1 % topical cream 1 applic TP DAILY PRN #80 g 12/24/18 [Last Taken Unknown] calcium carbonate 500 mg (1,250 mg)-vitamin D3 400 unit tablet 1 tab PO DAILY #90 tab 12/29/18 [Last Taken Unknown] - History of Present Illness Narrative: patient fell at home c/o left hip pain and left rib pain Occurred: this morning Location of Incident: home Method of Injury: Reports: fell, twisted, direct blow Reason for Fall: Reports: lost balance, slipped, tripped Loss of Consciousness: Reports: no loss of consciousness Modifying Factors - (Improves): Reports: other - nothing Modifying Factors - (Worsens): Reports: movement Associated Symptoms: Reports: unable to bear weight Other Injuries: Reports: chest Review of Systems - Review of Systems Constitutional: Present: See HPI, weakness, malaise EYE: Present: no symptoms reported ENT: Present: no symptoms reported Respiratory: Present: no symptoms reported Cardiology: Present: no symptoms reported, chest pain - pain iin left lateral ribs Gastrointestinal/Abdominal: Present: no symptoms reported Genitourinary: Present: no symptoms reported Musculoskeletal: Present: no symptoms reported Skin: Present: no symptoms reported Neurological: Present: no symptoms reported Endocrine: Present: no symptoms reported Hematologic/Lymphatic: Present: no symptoms reported Psych: Present: no symptoms reported All Other Systems: All systems neg except as marked Medical History (Updated 12/24/18 @ 11:48 by Veda Sher MD) Chronic respiratory failure with hypoxia (Chronic) HTN (hypertension) (Chronic) HLD (hyperlipidemia) (Chronic) Anxiety (Chronic) Depression (Chronic) CAD (coronary artery disease) (Chronic) COPD (chronic obstructive pulmonary disease) (Chronic) Anal fissure Myocardial infarction Onset Date: ~2006 Pneumonia Anxiety COPD (chronic obstructive pulmonary disease) Chronic GERD Onset Date: Unknown Depression HLD (hyperlipidemia) Psoriasis Onset Date: Unknown Breast cancer Onset Date: Unknown HTN (hypertension) Surgical History: Surgical History (Updated 12/23/17 @ 11:06 by Sihra Florian [facility]) History of carpal tunnel surgery of left wrist Onset Date: Unknown History of modified radical mastectomy of both breasts Onset Date: Unknown 1993- Left 1998- Right Hx of cataract surgery Onset Date: Unknown Bilateral Hx of eye surgery Onset Date: Unknown Done when a teenager-Right eye Family History: Family History (Updated 12/05/17 @ 10:18 by Suzie Marin [facility]) Mother Cervical cancer Tuberculosis Father Myocardial infarction Social History: (Last Reviewed 12/31/18 @ 09:51 by Aureliano Flores RN) Social History: household members: spouse number of children: 4 current occupational status: retired Highest education level completed: high school graduate Service: No Tobacco: Smoking Status: Never smoker Alcohol: alcohol intake: current Dietary Habits: caffeine: Yes Physical Exam - Physical Exam General Appearance: Present: moderate distress, anxious Head Exam: Present: normal inspection, no evidence of injury Eye Exam: Normal inspection: bilateral, PERRL: bilateral, EOMI: bilateral Ears, Nose, Throat: Present: normal ENT inspection, normal pharynx Neck: Present: normal inspection, nontender Respiratory: Present: no respiratory distress, no accessory muscle use, chest tenderness - left lateral ribs Cardiovascular/Chest: Present: regular rate, rhythm, no murmur, normal peripheral pulses Gastrointestinal/Abdominal: Present: normal bowel sounds, nontender, nondistended, soft, no organomegaly Back Exam: Present: normal inspection, normal range of motion, no CVA tenderness, no vertebral tenderness Extremity Exam: Present: normal except - - pain and tenderness over left greater trochanter Neurological Exam: Present: alert, oriented, normal mood/affect, no motor/sensory deficits Skin Exam: Present: normal color, warm/dry Lymphatic Exam: Present: no adenopathy Progress - Date and Time Seen: Date and Time: 12/31/18 10:42 discussed labs and x-rays with dr geller and dr haines, to admit to hospital - Results and Orders Patient's Lab Results:: I have reviewed the patient's lab results. - Vital Signs Patient's Vital Signs:: I have reviewed the patient's vital signs. Vital Signs: Vital Signs 12/31/18 09:46 12/31/18 10:08 Temperature 36.4 C Pulse Rate 75 75 Respiratory Rate 20 15 Blood Pressure 149/79 146/71 O2 Sat by Pulse Oximetry 94 95 - X-Ray X-Ray #1 X-Ray: chest - no acute process, left hip fx Interpretation: Interp. by me - Progress/Reassessment Chief Complaint: Hip Pain/Injury Progress:: Unchanged - Transfer of Care Expected Disposition: Admit Plan - Plan Plan: to admit to hospital Departure Clinical Impression: Hip fracture, left - Departure Disposition: Short Term Hospital Inpatient Condition: Serious Referrals: Veda Sher MD [Primary Care Provider] -
[2018-12-31] MEDS: NORMAL SALINE 1,000 ML IV PRN ×2 (11:39→23:27)
[2018-12-31] MEDS: MORPHINE SULFATE 2 MG/ML DISP.SYRIN IV PRN ×4 (12:02→23:27)
--- NOTE | 2018-12-31 12:31 | HP ---
Chief Complaint - Chief Complaint Date of Service: 12/31/18 Time of Service: 12:31 Chief Complaint: left hip pain History of Present Illness: Lissette Brown is an 83-year-old white female patient of Dr. Sher, with past medical history of chronic obstructive pulmonary disease on home oxygen 24 hours a day, hypertension, coronary artery disease who was admitted on 12/31/2018 because of fall and left hip pain. The patient was getting out of her bathroom and tripped over her oxygen hose, fell down and had severe left hip pain. She was then brought to our emergency room were her x-ray showed a left intertrochanteric fracture. Her hemoglobin was 8.2 ( 10.1 on 07/2018). Her chest x-ray showed findings consistent with COPD- hyperinflation. She was then admitted for orthopedic intervention. She denies any palpitations, chest pain, b ut admits to shortness of breath. She denies any complication from anesthesia or bleeding from her prior surgeries. Medical History (Updated 12/31/18 @ 13:47 by Long Morse MD) Chronic respiratory failure with hypoxia (Chronic) HTN (hypertension) (Chronic) HLD (hyperlipidemia) (Chronic) Anxiety (Chronic) Depression (Chronic) CAD (coronary artery disease) (Chronic) COPD (chronic obstructive pulmonary disease) (Chronic) Anal fissure Myocardial infarction Onset Date: ~2006 Pneumonia Anxiety COPD (chronic obstructive pulmonary disease) Chronic GERD Onset Date: Unknown Depression HLD (hyperlipidemia) Psoriasis Onset Date: Unknown Breast cancer Onset Date: Unknown HTN (hypertension) Surgical History: Surgical History (Updated 12/31/18 @ 12:31 by Long Morse MD) History of carpal tunnel surgery of left wrist Onset Date: Unknown History of modified radical mastectomy of both breasts Onset Date: Unknown 1993- Left 1998- Right Hx of cataract surgery Onset Date: Unknown Bilateral Hx of eye surgery Onset Date: Unknown Done when a teenager-Right eye Family History: Family History (Updated 12/05/17 @ 10:18 by Suzie Marin CMA) Mother Cervical cancer Tuberculosis Father Myocardial infarction Social History: (Last Reviewed 12/31/18 @ 09:51 by Aureliano Flores RN) Social History: household members: spouse number of children: 4 current occupational status: retired Highest education level completed: high school graduate Service: No Tobacco: Smoking Status: Never smoker Alcohol: alcohol intake: current Dietary Habits: caffeine: Yes Review Of Systems (GEN) - Review of Systems Generalized/Overall Review: Absent: Weakness, Chills, Fever EENTM: Absent: Blurred Vision Respiratory: Present: Shortness of Breath, Wheezing. Absent: Cough, Orthopnea Cardiac: Absent: Chest Pain, Edema, Palpitations Abdominal: Absent: Nausea, Vomiting, Abdominal Pain, Constipation, Diarrhea, Other Genitourinary: Absent: Urgency Musculoskeletal: Present: Joint Pain Neurological: Absent: Headache Skin: Present: Bruising - LLE. Absent: Rash Endocrine: Absent: Intolerance to Cold, Intolerance to Heat Misc: All systems neg except as marked Immunizations: IMMUNIZATION HX Immunizations Up to Date Yes History of Influenza Vaccine Yes Hx Pneumococcal Vaccination Yes Allergies/Adverse Reactions: Allergies Allergy/AdvReac Type Severity Reaction Status Date / Time denosumab [From Prolia] Allergy Severe Verified 12/31/18 09:52 ibuprofen AdvReac Verified 12/31/18 09:52 Home Medications: HOME MEDICATIONS Azithromycin 250 mg PO MOWEFR 11/09/16 [Last Taken Unknown] predniSONE [Prednisone] 10 mg PO SUTUTHSA 11/28/17 [Last Taken Unknown] Albuterol Sulfate/Ipratropium [Duoneb 2.5-0.5MG/3ML Soln] 3 ml IH QID 11/29/17 [Last Taken Unknown] Budesonide [Pulmicort Respules] 0.5 mg IH BID 11/29/17 [Last Taken Unknown] Formoterol Fumarate [Perforomist] 20 mcg IH BIDRT #1 vial 11/29/17 [Last Taken Unknown] emollient combination no.97 topical ointment See Rx Instructions TP .COMPLEX #454 g 12/23/17 [Last Taken Unknown] nitroglycerin 0.4 mg sublingual tablet 0.4 mg SL Q5-15M PRN 12/23/17 [Last Taken Unknown] clopidogrel 75 mg tablet 75 mg PO DAILY #90 tab 04/16/18 [Last Taken Unknown] alprazolam 0.5 mg tablet 0.5 mg PO TID PRN #90 tab 05/12/18 [Last Taken Unknown] simvastatin 20 mg tablet 20 mg PO QPM #90 tab 08/08/18 [Last Taken Unknown] metoprolol succinate ER 100 mg tablet,extended release 24 hr 100 mg PO DAILY #90 tab 08/14/18 [Last Taken Unknown] calcium carbonate-vitamin D3 600 mg (1,500 mg)-400 unit capsule 1 cap PO DAILY #90 cap 10/24/18 [Last Taken Unknown] amlodipine 5 mg tablet 5 mg PO DAILY #90 tab 11/06/18 [Last Taken Unknown] escitalopram 10 mg tablet 10 mg PO DAILY #90 tab 11/06/18 [Last Taken Unknown] isosorbide mononitrate ER 120 mg tablet,extended release 24 hr See Rx Instructions PO BID #180 tab 11/06/18 [Last Taken Unknown] levothyroxine 75 mcg tablet 75 mcg PO DAILY #90 tab 11/06/18 [Last Taken Unknown] ranolazine ER 500 mg tablet,extended release,12 hr 500 mg PO BID #180 tab 11/17/18 [Last Taken Unknown] clorazepate dipotassium 7.5 mg tablet 7.5 mg PO TID #270 tab 12/24/18 [Last Ta stepan Unknown] triamcinolone acetonide 0.1 % topical cream 1 applic TP DAILY PRN #80 g 12/24/18 [Last Taken Unknown] ranitidine 150 mg capsule 150 mg PO DAILY 12/31/18 [Last Taken Unknown] Exam - Exam Vital Signs: Vital Signs - Last Taken Temp 36.2 C 12/31/18 11:34 Pulse 72 12/31/18 11:34 Resp 15 12/31/18 11:34 BP 121/66 12/31/18 11:34 Pulse Ox 91 L 12/31/18 11:34 Constitutional: Present: Alert, Oriented x3, Cooperative, Elderly, Thin and frail ENT Exam: Present: hard of hearing Eye Exam: bilateral eye: normal inspection, PERRL, EOMI Neck: Present: supple. Absent: lymphadenopathy (R), lymphadenopathy (L) Respiratory: Present: decreased breath sounds, wheezing. Absent: No rales Cardiovascular/Chest: Present: regular rate, rhythm, no JVD, no murmur Abdomen: Present: Normal bowel sounds, soft, nontender, nondistended Extremity: Present: no calf tenderness, other - LLE internally rotated, addu cted, wiggles her toes on command Diagnostic Studies: Abnormal Lab Results 08/21/19 08/21/19 Range/Units 10:06 10:06 RBC 3.46 L (4.2-5.4) M/mm3 Hgb 8.5 L (12.5-16.0) gm/dL Hct 29.2 L (37.0-47.0) % MCH 24.6 L (27-31) pg MCHC 29.1 L (32-36) g/dl RDW 17.2 H (11.5-14.0) % Immature Gran % (Auto) 0.60 H (0.001-0.429) % Immature Gran # (Auto) 0.04 H (0.000-0.0310) K/mm3 Lymphocytes % 15.0 L (20-51) % Monocytes % 10.7 H (0.0-9) % Lymphocytes # 1.02 L (1.5-3.5) k/mm3 Carbon Dioxide 33.5 H (24-32.6) mmol/L ALT 13 L (19-67) U/L Albumin 3.2 L (3.4-5.0) gm/dl Laboratory Results WBC 6.8 K/mm3 (4.0-10.5) 12/31/18 10:06 RBC 3.46 M/mm3 (4.2-5.4) L 12/31/18 10:06 Hgb 8.5 gm/dL (12.5-16.0) L 12/31/18 10:06 Hct 29.2 % (37.0-47.0) L 12/31/18 10:06 MCV 84.4 fl (78-100) 12/31/18 10:06 MCH 24.6 pg (27-31) L 12/31/18 10:06 MCHC 29.1 g/dl (32-36) L 12/31/18 10:06 RDW 17.2 % (11.5-14.0) H 12/31/18 10:06 Plt Count 301 K/mm3 (150-450) 12/31/18 10:06 MPV 8.6 fl (8-12.5) 12/31/18 10:06 Immature Gran % (Auto) 0.60 % (0.001-0.429) H 12/31/18 10:06 Immature Gran # (Auto) 0.04 K/mm3 (0.000-0.0310) H 12/31/18 10:06 70.9 % (42-75.0) 12/31/18 10:06 15.0 % (20-51) L 12/31/18 10:06 10.7 % (0.0-9) H 12/31/18 10:06 2.2 % (0.0-3.0) 12/31/18 10:06 0.6 % (0.0-1.0) 12/31/18 10:06 Nucleated RBC % 0.0 k/mm3 (0-1) 12/31/18 10:06 4.8 K/mm3 (1.3-6.0) 12/31/18 10:06 1.02 k/mm3 (1.5-3.5) L 12/31/18 10:06 0.7 k/mm3 (0.0-1.0) 12/31/18 10:06 0.2 k/mm3 (0.0-0.7) 12/31/18 10:06 Absolute Basophils 0.0 k/mm3 (0.0-0.1) 12/31/18 10:06 Sodium 142 mmol/L (132-142) 12/31/18 10:06 142 mmol/L (130-142) 12/31/18 10:06 Potassium 4.3 mmol/L (3.4-4.6) 12/31/18 10:06 Chloride 103 mmol/L (97-106) 12/31/18 10:06 Carbon Dioxide 33.5 mmol/L (24-32.6) H 12/31/18 10:06 9.8 mmol/L (6.8-13.8) 12/31/18 10:06 BUN 15 mg/dL (3-23) 12/31/18 10:06 0.76 mg/dL (0.4-1.4) 12/31/18 10:06 Est GFR (Non-Af Amer) 77 mL/min (60-130) 12/31/18 10:06 19.7 (9.0-21.6) 12/31/18 10:06 97 mg/dL (70-110) 12/31/18 10:06 Calcium 8.9 mg/dL (7.9-10.9) 12/31/18 10:06 Calcium Adj for Albumin 9.2 mg/dL (8.4-10.2) 12/31/18 10:06 0.4 mg/dL (0.0-1.1) 12/31/18 10:06 AST 18 U/L (0-48) 12/31/18 10:06 ALT 13 U/L (19-67) L 12/31/18 10:06 50 U/L (50-170) 12/31/18 10:06 6.2 gm/dL (6.2-8.2) 12/31/18 10:06 3.2 gm/dl (3.4-5.0) L 12/31/18 10:06 Blood Type A Positive 12/31/18 10:06 Antibody Screen Negative 12/31/18 10:06 Assessment/Plan - Narrative Narrative: Elderly female with left intertrochanteric fracture. Will get an EKG. With her H/O CAD and anticipated orthopedic surgery , will tranfuse with PRBC for her anemia of 8.5. Risks and benefits of surgery discussed with patient and her and they wish to proceed with CRIF. Her RCRI is 0.9% of major cardiac event. Will need to watch closely sedation and narcotic pain medication to avoid respiratory depression because of her chronic respiratory failure. She may proceed with anticipated procedure. - Assessment/Plan (1) Hip fracture, left Problem: Acute Qualifiers: Encounter type: initial encounter Fracture type: closed Qualified Code(s ): S72.002A - Fracture of unspecified part of neck of left femur, initial encounter for closed fracture (2) Anemia Assessment: acute on chronic Problem: Acute (3) HTN (hypertension) Problem: Chronic Qualifiers: Hypertension type: essential hypertension Qualified Code(s): I10 - Essential (primary) hypertension (4) HLD (hyperlipidemia) Problem: Chronic Qualifiers: Hyperlipidemia type: unspecified Qualified Code(s): E78.5 - Hyperlipidemia, unspecified (5) Anxiety Problem: Chronic (6) Depression Problem: Chronic Qualifiers: Depression Type: unspecified Qualified Code(s): F32.9 - Major depressive disorder, single episode, unspecified (7) CAD (coronary artery disease) Problem: Chronic Qualifiers: Coronary Disease-Associated Artery/Lesion type: iro[place]ois artery [place] vs. transplanted heart: iroquois heart Associated angina: with unstable angina Qualified Code(s): I25.110 - Atherosclerotic heart disease of iroquois coronary artery with unstable angina pectoris (8) COPD (chronic obstructive pulmonary disease) Problem: Chronic Qualifiers: COPD type: unspecified COPD Qualified Code(s): J44.9 - Chronic obstructive pulmonary disease, unspecified
[2018-12-31] MEDS ORDERED: ALPRAZolam 0.5 MG TABLET PO PRN (12:56)
[2018-12-31] MEDS ORDERED: NITROGLYCERIN 0.4 MG/TAB BTL SL PRN (12:56)
[2018-12-31] MEDS ORDERED: TRIAMCINOLONE ACETONIDE 15 APPL TUBE TP PRN (12:56)
[2018-12-31] MEDS: CLORAZEPATE DIPOTASSIUM 3.75 MG TABLET PO SCH ×2 (13:00→16:32)
[2018-12-31] MEDS ORDERED: FUROSEMIDE 10 MG/ML VIAL IV PRN (13:18)
[2018-12-31 14:00] LABS: Iron 12 mcg/dL (35-120); Transferrin Sat. (% Sat.) 3 % (15-55)
[2018-12-31] MEDS: ALBUTEROL SULFATE/IPRATROPIUM 3 ML NEBU IH SCH ×2 (14:11→18:08)
[2018-12-31 14:28] LABS: Ferritin 11 ng/mL (8-252)
[2018-12-31] MEDS ORDERED: AZITHROMYCIN 250 MG TABLET PO SCH (15:00)
--- NOTE | 2018-12-31 15:00 | CONS ---
- Reason for consultation (1) Hip fracture, left Date of Service: 12/31/18 HPI - General Date of Service: 12/31/18 Narrative: Patient presents today after she fell at home. She notes she has significant left hip pain as well as left-sided lower rib pain. Patient notes her pain is worse with movement better with rest. Source: patient - History of Present Illness Allergies/Adverse Reactions: Allergies denosumab [From Prolia] Allergy (Severe, Verified 12/31/18 09:52) ibuprofen Adverse Reaction (Verified 12/31/18 09:52) Home Medications: Home Medications Medication Instructions Recorded Last Taken Azithromycin 250 mg PO MOWEFR 11/09/16 Unknown predniSONE [Prednisone] 10 mg PO SUTUTHSA 11/28/17 Unknown Albuterol Sulfate/Ipratropium 3 ml IH QID 11/29/17 Unknown [Duoneb 2.5-0.5MG/3ML Soln] Budesonide [Pulmicort Respules] 0.5 mg IH BID 11/29/17 Unknown Formoterol Fumarate [Perforomist] 20 mcg IH BIDRT #1 vial 11/29/17 Unknown emollient combination no.97 See Rx Instructions TP .COMPLEX 12/23/17 Unknown topical ointment #454 g nitroglycerin 0.4 mg sublingual 0.4 mg SL Q5-15M PRN 12/23/17 Unknown tablet clopidogrel 75 mg tablet 75 mg PO DAILY #90 tab 04/16/18 Unknown alprazolam 0.5 mg tablet 0.5 mg PO TID PRN #90 tab 05/12/18 Unknown simvastatin 20 mg tablet 20 mg PO QPM #90 tab 08/08/18 Unknown metoprolol succinate ER 100 mg 100 mg PO DAILY #90 tab 08/14/18 Unknown tablet,extended release 24 hr calcium carbonate-vitamin D3 600 1 cap PO DAILY #90 cap 10/24/18 Unknown mg (1,500 mg)-400 unit capsule amlodipine 5 mg tablet 5 mg PO DAILY #90 tab 11/06/18 Unknown escitalopram 10 mg tablet 10 mg PO DAILY #90 tab 11/06/18 Unknown isosorbide mononitrate ER 120 mg See Rx Instructions PO BID #180 tab 11/06/18 Unknown tablet,extended release 24 hr levothyroxine 75 mcg tablet 75 mcg PO DAILY #90 tab 11/06/18 Unknown ranolazine ER 500 mg 500 mg PO BID #180 tab 11/17/18 Unknown tablet,extended release,12 hr clorazepate dipotassium 7.5 mg 7.5 mg PO TID #270 tab 12/24/18 Unknown tablet triamcinolone acetonide 0.1 % 1 applic TP DAILY PRN #80 g 12/24/18 Unknown topical cream Glycopyrrolate/Neb.accessories 25 mcg INHALATION BID 12/31/18 Unknown [Lonhala Magnair 25 Mcg Refill] ranitidine 150 mg capsule 150 mg PO DAILY 12/31/18 Unknown Procedures Application of external fixator device, radius and ulna (07/07/02) Closed reduction of fracture with internal fixation, radius and ulna (07/07/02) Insertion of intraocular lens prosthesis at time of cataract extraction, one- stage (03/07/10) Measurement of Arterial Saturation, Peripheral, Percutaneous Approach (11/08/16) Measurement of systemic arterial blood gases (05/24/14) Packing of Nasal Region using Packing Material (07/08/18) Phacoemulsification and aspiration of cataract (03/07/10) Medications - Medications Current Medications: Current Medications Albuterol/Ipratropium (Duoneb 2.5-0.5mg/3ml Soln) 3 ml IH QIDRT [facility] Stop: 01/30/19 15:01 Last Admin: 12/31/18 14:11 Dose: 3 ml Documented by: Clorazepate Dipotassium (Tranxene) 7.5 mg PO TID [facility] Stop: 01/30/19 13:01 Last Admin: 12/31/18 13:00 Dose: Not Given Documented by: Sodium Chloride (Sodium Chloride 0.9%) 1,000 mls @ 125 mls/hr IV .Q8H PRN PRN Reason: HYDRATION Stop: 01/30/19 11:06 Last Admin: 12/31/18 11:39 Dose: 125 mls/hr Documented by: Morphine Sulfate (Morphine Sulfate) 2 mg IV Q1H PRN PRN Reason: Analgesia Stop: 01/30/19 11:07 Last Admin: 12/31/18 14:49 Dose: 2 mg Documented by: Physical Examination - Exam Vital Signs: Vital Signs - Last Taken Temp 36.2 C 12/31/18 11:34 Pulse 68 12/31/18 14:21 Resp 24 H 12/31/18 14:21 BP 121/66 12/31/18 11:34 Pulse Ox 91 L 12/31/18 14:11 O2 Oxygen Delivery Method Nasal Cannula Constitutional: Present: Mild distress Extremity: Present: other - LLE--> sensation intact light touch, 4+/5 plantar flexion dorsiflexion of ankle, multiple superficial abrasions about left knee, significant tenderness to palpation along left hip, distal capillary refill brisk - Results and Findings: Lab/Microbiology results last 24 hrs: Abnormal/Pending Laboratory Last 24 HRS 12/31/18 12/31/18 12/31/18 10:06 10:06 10:06 RBC Hgb Hct MCH MCHC RDW Immature Gran % (Auto) Immature Gran # (Auto) Lymphocytes % Monocytes % Lymphocytes # Carbon Dioxide Iron 12 L Transferrin % Sat 3 L ALT Albumin Vitamin B12 1358 H Crossmatch See Detail 12/31/18 12/31/18 10:06 10:06 RBC 3.46 L Hgb 8.5 L Hct 29.2 L MCH 24.6 L MCHC 29.1 L RDW 17.2 H Immature Gran % (Auto) 0.60 H Immature Gran # (Auto) 0.04 H Lymphocytes % 15.0 L Monocytes % 10.7 H Lymphocytes # 1.02 L Carbon Dioxide 33.5 H Iron Transferrin % Sat ALT 13 L Albumin 3.2 L Vitamin B12 Crossmatch - Assessments/Findings (1) Hip fracture, left Problem: Acute Qualifiers: Encounter type: initial encounter Fracture type: closed Qualified Code(s): S72.002A - Fracture of unspecified part of neck of left femur, initial encounter for closed fracture Plan - Plan Plan: 83-year-old female admitted status post a fall with a left intertrochanteric femur fracture. Patient has multiple comorbid chronic medical conditions including COPD history of a heart attack, history of breast cancer, hypertension, hyperlipidemia. Discussed in detail the risk first benefits including but not limited to bleeding, infection, malunion versus nonunion fracture healing, continued pain, weightbearing status, cardiac and stroke risk, DVT risk, inherent surgical risks. Discussed these with the patient and family in the room, at this time they were unable to make a decision on whether to proceed with conservative or surgical intervention. Discussed in detail both the risks acutely with surgery as well as long-term with fracture healing. His family stated they wish to speak with patient's medicine providers prior to making a decision on the treatment of this fracture. At this time will await the family's decision to proceed with either surgical intervention versus conservative measures.
[2018-12-31] MEDS: BUDESONIDE 0.5 MG/2 ML VIAL.NEB IH SCH (18:08)
[2018-12-31] MEDS: FORMOTEROL FUMARATE 20 MCG/2 ML VIAL IH SCH (18:08)
[2018-12-31] MEDS: SIMVASTATIN 20 MG TABLET PO SCH (18:44)
[2018-12-31] MEDS ORDERED: [UNRECOGNIZED DRUG - OTHER] INH SCH (19:00)
[2018-12-31] MEDS: GLYCOPYRROLATE inhalation SCH (19:00)
[2018-12-31] MEDS ORDERED: GLYCOPYRROLATE INH SCH (19:00)
[2018-12-31] MEDS: [UNRECOGNIZED DRUG - OTHER] inhalation SCH (19:00)
[2018-12-31] MEDS: ISOSORBIDE MONONITRATE 60 MG TAB.SR.24H PO SCH (20:25)
[2018-12-31] MEDS ORDERED: ISOSORBIDE MONONITRATE 120 MG TAB.SR.24H PO SCH (21:00)
[2018-12-31] MEDS ORDERED: BUDESONIDE 0.5 MG/2 ML VIAL.NEB IH SCH (21:00)
[2019-01-01 00:17] LABS: Hematocrit 39.1 % (37.0-47.0)
[2019-01-01] MEDS: MORPHINE SULFATE 2 MG/ML DISP.SYRIN IV PRN ×4 (01:50→17:04)
[2019-01-01] MEDS: ALBUTEROL SULFATE/IPRATROPIUM 3 ML NEBU IH SCH ×4 (06:00→18:10)
[2019-01-01] MEDS: [UNRECOGNIZED DRUG - OTHER] inhalation SCH ×2 (06:01→18:56)
[2019-01-01] MEDS: FORMOTEROL FUMARATE 20 MCG/2 ML VIAL IH SCH ×2 (06:01→18:10)
[2019-01-01] MEDS: BUDESONIDE 0.5 MG/2 ML VIAL.NEB IH SCH ×2 (06:01→18:11)
[2019-01-01] MEDS: GLYCOPYRROLATE inhalation SCH ×2 (06:01→18:56)
[2019-01-01] MEDS ORDERED: DEXTROSE 5%-0.5 NORMAL SALINE 1,000 ML IV PRN (06:03)
--- NOTE | 2019-01-01 08:59 | PN ---
Brittney Note - Interim Date: 01/01/19 Time: 08:57 Narrative: 01/01/19 08:57 patient is sleeping with Bipap. no family at bedside but daughter is going to talk to her pet sitting and tester food products before making a decision wether to be conservative or aggressive with management. she also says that patient is a full code.
[2019-01-01] MEDS ORDERED: predniSONE 10 MG TABLET PO SCH (09:00)
[2019-01-01] MEDS: ESCITALOPRAM OXALATE 10 MG TAB PO SCH (09:51)
[2019-01-01] MEDS: ISOSORBIDE MONONITRATE 60 MG TAB.SR.24H PO SCH ×2 (09:51→21:11)
[2019-01-01] MEDS: CALCIUM CARBONATE/VITAMIN D3 1 TAB TABLET PO SCH (09:51)
[2019-01-01] MEDS: FAMOTIDINE 20 MG TABLET PO SCH (09:52)
[2019-01-01] MEDS: amLODIPine BESYLATE 5 MG TABLET PO SCH (09:52)
[2019-01-01] MEDS: CLOPIDOGREL BISULFATE 75 MG TABLET PO SCH (09:59)
[2019-01-01] MEDS: LEVOTHYROXINE SODIUM 75 MCG TABLET PO SCH (09:59)
[2019-01-01] MEDS: METOPROLOL SUCCINATE 100 MG TABLET.SA PO SCH (10:00)
[2019-01-01] MEDS: CLORAZEPATE DIPOTASSIUM 3.75 MG TABLET PO SCH ×3 (10:00→17:35)
--- NOTE | 2019-01-01 11:23 | ANES ---
Anesthesia Pre Procedure Eval Vitals/Labs: Last Vital Signs Temp 37.5 C 01/01/19 06:50 Pulse 75 01/01/19 10:43 Resp 21 H 01/01/19 10:43 BP 133/81 01/01/19 06:50 Pulse Ox 97 01/01/19 10:33 HOME MEDICATIONS Azithromycin 250 mg PO MOWEFR 11/09/16 [Last Taken Unknown] predniSONE [Prednisone] 10 mg PO SUTUTHSA 11/28/17 [Last Taken Unknown] Albuterol Sulfate/Ipratropium [Duoneb 2.5-0.5MG/3ML Soln] 3 ml IH QID 11/29/17 [Last Taken Unknown] Budesonide [Pulmicort Respules] 0.5 mg IH BID 11/29/17 [Last Taken Unknown] Formoterol Fumarate [Perforomist] 20 mcg IH BIDRT #1 vial 11/29/17 [Last Taken Unknown] emollient combination no.97 topical ointment See Rx Instructions TP .COMPLEX #454 g 12/23/17 [Last Taken Unknown] nitroglycerin 0.4 mg sublingual tablet 0.4 mg SL Q5-15M PRN 12/23/17 [Last Taken Unknown] clopidogrel 75 mg tablet 75 mg PO DAILY #90 tab 04/16/18 [Last Taken Unknown] alprazolam 0.5 mg tablet 0.5 mg PO TID PRN #90 tab 05/12/18 [Last Taken Unknown] simvastatin 20 mg tablet 20 mg PO QPM #90 tab 08/08/18 [Last Taken Unknown] metoprolol succinate ER 100 mg tablet,extended release 24 hr 100 mg PO DAILY #90 tab 08/14/18 [Last Taken Unknown] calcium carbonate-vitamin D3 600 mg (1,500 mg)-400 unit capsule 1 cap PO DAILY #90 cap 10/24/18 [Last Taken Unknown] amlodipine 5 mg tablet 5 mg PO DAILY #90 tab 11/06/18 [Last Taken Unknown] escitalopram 10 mg tablet 10 mg PO DAILY #90 tab 11/06/18 [Last Taken Unknown] isosorbide mononitrate ER 120 mg tablet,extended release 24 hr See Rx Instructions PO BID #180 tab 11/06/18 [Last Taken Unknown] levothyroxine 75 mcg tablet 75 mcg PO DAILY #90 tab 11/06/18 [Last Taken Unknown] ranolazine ER 500 mg tablet,extended release,12 hr 500 mg PO BID #180 tab 11/17/18 [Last Taken Unknown] clorazepate dipotassium 7.5 mg tablet 7.5 mg PO TID #270 tab 12/24/18 [Last Taken Unknown] triamcinolone acetonide 0.1 % topical cream 1 applic TP DAILY PRN #80 g 12/24/18 [Last Taken Unknown] Glycopyrrolate/Neb.accessories [Lonhala Magnair 25 Mcg Refill] 25 mcg INHALATION BID 12/31/18 [Last Taken Unknown] ranitidine 150 mg capsule 150 mg PO DAILY 12/31/18 [Last Taken Unknown] Allergies/Adverse Reactions: Allergies Allergy/AdvReac Type Severity Reaction Status Date / Time denosumab [From Prolia] Allergy Severe Verified 12/31/18 09:52 ibuprofen AdvReac Verified 12/31/18 09:52 - Planned Procedure Planned Procedure: Fall, Left hip fracture Medication List Reviewed:: Yes Allergies Verified: Yes Medical History (Updated 12/31/18 @ 13:47 by Long Morse MD) Chronic respiratory failure with hypoxia (Chronic) HTN (hypertension) (Chronic) HLD (hyperlipidemia) (Chronic) Anxiety (Chronic) Depression (Chronic) CAD (coronary artery disease) (Chronic) COPD (chronic obstructive pulmonary disease) (Chronic) Anal fissure Myocardial infarction Onset Date: ~2006 Pneumonia Anxiety COPD (chronic obstructive pulmonary disease) Chronic GERD Onset Date: Unknown Depression HLD (hyperlipidemia) Psoriasis Onset Date: Unknown Breast cancer Onset Date: Unknown HTN (hypertension) Surgical History (Updated 12/31/18 @ 12:31 by Long Morse MD) History of carpal tunnel surgery of left wrist Onset Date: Unknown History of modified radical mastectomy of both breasts Onset Date: Unknown 1993- Left 1998- Right Hx of cataract surgery Onset Date: Unknown Bilateral Hx of eye surgery Onset Date: Unknown Done when a teenager-Right eye Family History (Updated 12/05/17 @ 10:18 by Suzie Marin CMA) Mother Cervical cancer Tuberculosis Father Myocardial infarction - Family Anesthesia History Family History:: no untoward family reactions to anesthesia, no familial bleeding tendencies, no family history of clotting disorders, no family history of premature - Airway/Neck/Teeth Within Normal Limits:: No - unable to assess D/T bipap Thyromental (T-M) distance: > 6 cm Mandibulo Hyoid distance: > 3 cm - Respiratory Respiratory Physical: decreased breath sounds, wheezing Smoking Status: Former smoker Discussed smoking cessation including day of surgery: No Sleep Apnea currently treated: No Sleep Apnea by current assessment: No Discussed Risks/Treatment of MERI: No - Cardiovascular Tolerate Activity: Poor Heart Sounds: S1 & S2, Regular - Anesthesia Assessment and Plan ASA Class: PS, IV Anesthesia Type Plan: General ET
--- NOTE | 2019-01-01 11:49 | PN ---
Subjective - Date and Time Seen Date: 01/01/19 Time: 11:00 Subjective Narrative: Patient is lying in bed comfortably, BiPAP machine in place, she is resting, family is here with her including her and daughter. Discussed in detail conservative or surgical intervention and the possibilities this treatment including risk first benefits with Dr. Smith present as well. Patient appears to be resting comfortably in bed. Objective - Vitals Vitals: Last Vital Signs Temp 37.2 C 01/01/19 11:00 Pulse 77 01/01/19 11:00 Resp 20 01/01/19 11:00 BP 127/74 01/01/19 11:00 Pulse Ox 98 01/01/19 11:00 - Abnormal Lab Findings Abnormal Lab Findings: Abnormal Lab Results 12/31/18 12/31/18 12/31/18 Range/Units 10:06 10:06 10:06 Hgb (12.5-16.0) gm/dL Iron 12 L (35-120) mcg/dL Transferrin % Sat 3 L (15-55) % Vitamin B12 1358 H (193-986) pg/mL Crossmatch See Detail 01/01/19 Range/Units 00:15 Hgb 12.0 L (12.5-16.0) gm/dL Iron (35-120) mcg/dL Transferrin % Sat (15-55) % Vitamin B12 (193-986) pg/mL Crossmatch - Exam Extremity: Present: other - Left lower extremity--> distal capillary refill brisk, patient sleeping unable to determine sensation and perform manual muscle test, no significant change in superficial abrasions Cauti Physician Documentation - Urinary Catheter Management Urethral (Hernández) Date of Insertion: 12/31/18 Time of Insertion: 15:00 Assessment/Plan Plan Narrative: - 83 y/o admitted status post a fall with a left intertrochanteric femur fractu re -Discussed with patient and family conservative or surgical intervention including the risk first benefits as previously discussed. Patient family have decided to proceed with surgical intervention. They understand the risk and the possible need for ICU care postoperatively as well as possible intraoperative complications. Family agrees to proceed with surgical intervention on 01/01/2019. Patient's CODE STATUS has been updated. Patient will most likely be taken to SICU postoperatively for weaning from the ventilator. Patient require a general anesthetic due to Plavix. Will monitor patient postoperatively and further care once surgical procedure has been completed. - Problems/Diagnosis (1) Hip fracture, left Problem: Acute Qualifiers: Encounter type: initial encounter Fracture type: closed Qualified Code(s): S72.002A - Fracture of unspecified part of neck of left femur, initial encounter for closed fracture
[2019-01-01] MEDS ORDERED: ceFAZolin SODIUM 1 GM VIAL IV ONE (12:36)
[2019-01-01] MEDS ORDERED: HYDROcodone/ACETAMINOPHEN 1 EACH TABLET PO PRN ×2 (13:04→13:10)
[2019-01-01] MEDS ORDERED: MAGNESIUM HYDROXIDE 30 ML UDC PO PRN (13:04)
[2019-01-01] MEDS ORDERED: ACETAMINOPHEN 500 MG TABLET PO PRN (13:04)
[2019-01-01] MEDS ORDERED: ONDANSETRON HCL/PF 2 MG/ML VIAL IV PRN (13:04)
[2019-01-01] MEDS ORDERED: MAG HYDROX/ALUMINUM HYD/SIMETH 30 ML UDC PO PRN (13:04)
--- NOTE | 2019-01-01 13:14 | OR ---
Operative Report - Dictated Report Narrative: Date: 01/01/2019 Surgeon: Clayton Smith M.D. Rental Sales Representative: Rangel Matias PA-C provided a set of essential, skilled, educated hands that assisted in positioning, transfer, retraction, manipulation, irrigation, closure of wounds, and placement of dressings all of which could not be provided by the available surgical crew. Preoperative diagnosis: Left intertrochanteric femur fracture Postoperative diagnosis: Left intertrochanteric femur fracture Operations and procedures: 1. Closed reduction, cephalo-medullary fixation left intertrochanteric femur fracture 2. Intraoperative interpretation of radiographs Anesthesia: General Specimens: None Estimated blood loss: 200 milliliters Retained implants: [employer] Trigen InterTAN 130 degree size 11.5 mm by 20 centimeter nail with 95 millimeter lag screw and 90 millimeter compression screw, with distal locking screw Complications: None Indications for procedure: Lissette is an 83-year-old female with end-stage COPD who ambulates minimally around her home who injured the left leg after falling from standing height. They were admitted to the hospital after being evaluated in the emergency department. Once the medical provider felt that they were stable for surgical treatment, the risks and benefits alternatives were discussed. The risks of , blood clots, bleeding, infection, nerve/tendon/blood vessel injury, malunion, nonunion, failure of implants, painful implants, arthrosis, and need for additional procedures were discussed. The extremity was marked and consent was obtained on the floor. Procedure: After marking the operative extremity on the floor, the patient was taken to the operating room. A timeout was performed. IV antibiotics consisting of 1 g of Ancef were administered. A general anesthetic was induced by anesthesia, and the patient was then placed onto a fracture table with a well-padded perineal post. The non-operative leg was placed in a well-padded well leg ware in lithotomy position with an SCD on the leg. The operative leg was placed in a well-padded traction boot. Longitudinal traction, internal rotation, flexion, and adduction were utilized in order to reduce the fracture. Preliminary images were attained utilizing C-arm in both the AP and lateral views. This confirmed that we had obtained adequate visualization of the fracture as well as reduction. Next the hip was then prepped and draped in a standard sterile fashion. Next, the guidewire was placed percutaneously proximal to the greater trochanter to ellis a starting point at the tip of the greater trochanter centered on the lateral view. This was advanced down to the level below the lesser trochanter. A scalpel was utilized to dissect down to the greater trochanter in order to lace the soft tissue protector down to bone. The entry reamer was then advanced down the proximal femur to the level of the lesser trochanter. The above nail was then selected and impacted into place. The outrigger was utilized in order to confirm the appropriate depth of the nail. Using the alignment device on the outrigger, a nabila incision was made over the lateral femur. Sharp dissection was carried through the iliotibial band down to the proximal femur. The guidewire was was placed into the femoral head in a center center position on AP and lateral views. A tip apex distance less than 25 mm combined was obtained. Once we felt that we had placed the guidewire in the appropriate position, it was measured. Next the compression screw entry drill was advanced through the lateral cortex. This was then drilled down to the appropriate depth for the compression screw, again confirming that we are within the confines the bone. The derotational bar was then placed and the lag screw was drilled to the appropriate depth. The lag screw was then secured in place ensuring that we were within the confines of the bone. The compression screw was then inserted allowing for compression while releasing the traction on the leg. Using C-arm this was visualized to allow for compression across the fracture site. Once it was felt we had adequately stabilized the intertrochanteric fracture, the distal interlocking screw was placed in a static position confirmed to be the appropriate length and within the nail on both AP and lateral views. The nail was secured allowing for controlled compression and the outrigger was removed. The wounds were then thoroughly irrigated. Final images were obtained. The hip was placed through range of motion and showed no crepitance. The deep fascia was closed with 0 Vicryl, the subcutaneous tissue with 3-0 Vicryl, and the skin was closed with yamilka. Sterile dressings of Xeroform, 4 x 4s, and tegaderm were applied. All sponge, sharp, and instrument counts were correct prior to closing the wounds. The patient was then awoken and transferred to the postanesthesia care unit in stable condition.
[2019-01-01] MEDS ORDERED: RINGER'S SOLUTION,LACTATED 1,000 ML IV PRN (13:54)
--- NOTE | 2019-01-01 13:55 | ANES ---
Post Anesthesia Discharge - Transfer of Care Transfer of Care handoff given to nurse: Yes - Discharge from PACU Discharge from PACU when meets criteria: Yes - Discharge to ASU Discharge to ASU-no complications/pt stable: Yes
[2019-01-01] MEDS ORDERED: FUROSEMIDE 10 MG/ML VIAL IV ONE (14:02)
[2019-01-01] MEDS ORDERED: MORPHINE SULFATE 2 MG/ML DISP.SYRIN IV ONE ×2 (14:02→14:30)
[2019-01-01] MEDS ORDERED: ALBUTEROL SULFATE 2.5 MG/0.5 ML VIAL.NEB IH ONE (14:04)
[2019-01-01] MEDS ORDERED: MORPHINE SULFATE 10 MG/ML SYRG IV ONE (14:17)
[2019-01-01] MEDS ORDERED: NORMAL SALINE 1,000 ML IV ONE (15:04)
[2019-01-01] MEDS ORDERED: DIGOXIN 0.25 MG/ML AMPUL IV ONE (15:07)
[2019-01-01 15:27] LABS: Hematocrit 32.5 % (37.0-47.0); Hemoglobin 9.8 gm/dL (12.5-16.0); Mean Cell Volume 89.3 fl (78-100); Mean Corpuscular Hemoglobin 26.9 pg (27-31); Mean Corpuscular Hgb Conc 30.2 g/dl (32-36); Mean Platelet Volume 9.3 fl (8-12.5); Platelet Count 294 K/mm3 (150-450); Red Blood Count 3.64 M/mm3 (4.2-5.4); Red Cell Distribution Width 16.6 % (11.5-14.0); White Blood Count 25.3 K/mm3 (4.0-10.5)
[2019-01-01 15:31] LABS: Total Cells Counted 100
--- NOTE | 2019-01-01 15:37 | ANES ---
Post Anesthesia Assessment - Vital Signs Vitals: Last Vital Signs Temp 37.0 C 01/01/19 13:40 Pulse 138 H 01/01/19 14:50 Resp 32 H 01/01/19 14:50 BP 82/34 L 01/01/19 14:50 Pulse Ox 91 L 01/01/19 14:50 Airway Patency: Normal - Mental Status Level Of Consciousness: Drowsy - N/V Assessment Nausea/Vomiting Presence: None Dehydration:: No - Additional Notes Comments:: Pt remains intubated. HR sinus rhythm. O2 10L/min via ambu/mask
[2019-01-01] MEDS ORDERED: LORazepam 2 MG/ML DISP.SYRIN ONE (15:39)
[2019-01-01 15:40] LABS: Prothrombin Time (Patient) 12.1 Seconds (9.1-10.7)
[2019-01-01 15:44] LABS: INR 1.23 INR (0.92-1.08)
[2019-01-01 15:47] LABS: Lymphocyte 10 % (20-51); Monocyte 9 % (0-9); Neutrophil 81 % (42-75); Neutrophil # 20.5 K/mm3 (1.3-6.0); Platelet Estimate Normal (NORMAL); RBC Morphology Normal (NORMAL)
[2019-01-01] MEDS ORDERED: IPRATROPIUM BROMIDE 0.5 MG/2.5 ML VIAL.NEB IH ONE ×2 (15:47→15:53)
[2019-01-01] MEDS ORDERED: LORazepam 2 MG/ML DISP.SYRIN IV PRN (15:49)
[2019-01-01 15:50] LABS: Albumin * 2.3 gm/dl (3.4-5.0); Anion Gap 11.4 mmol/L (6.8-13.8); BUN/Creatinine Ratio 14.3 (9.0-21.6); Bilirubin, Total 0.4 mg/dL (0.0-1.1); Ca. Corrected For Albumin 8.5 mg/dL (8.4-10.2); Calcium * 7.5 mg/dL (7.9-10.9); Carbon Dioxide 29.3 mmol/L (24-32.6); Potassium 4.7 mmol/L (3.4-4.6); Total Protein 5.1 gm/dL (6.2-8.2); Troponin I 0.037 ng/mL (0.00-0.10)
[2019-01-01] MEDS ORDERED: MORPHINE SULFATE 10 MG/ML SYRG IV PRN (15:52)
[2019-01-01] MEDS ORDERED: LORazepam 2 MG/ML DISP.SYRIN IV ONE ×3 (15:52→16:15)
[2019-01-01] MEDS: NORMAL SALINE 1,000 ML IV PRN (15:58)
[2019-01-01] MEDS ORDERED: PANTOPRAZOLE SODIUM 40 MG in NORMAL SALINE 100 ML IV SCH (16:00)
--- NOTE | 2019-01-01 16:12 | PN ---
Subjective - Date and Time Seen Date: 01/01/19 Time: 16:03 Subjective Narrative: patient had her CRIF of her left intertrochanteric fracture today. postoperatively patient had elevated BP in the RR and was given hydralazine by anesthesia. She went into AFIb with RVR and she desaturated and became hypotenive . She was reintubated and recieved IV Bolus and we electrocardioverted her x 1, synxhronized. She returned to sinus rhythm and her BP started to go up. She is transferred to SCU. I talked with the family about it. Plan is to to keep her on the ventilator and will stabilize her tonight . We will do weaning parameters in the morning. If she passes it , will try to extubate her. If gets into respiratory distress again , will need to reintubate her and transfer her. If she does not the weaning paramaters, will transfer her to [facility] although daughter's preference is [facility] as her lube attendant and center manager are over there. The daughter and the agrees with the plan. Objective - Review of Systems Misc: All systems neg except as marked - unable to obtain as he is intubated and sedated - Vitals Vitals: Last Vital Signs Temp 37.0 C 01/01/19 13:40 Pulse 128 H 01/01/19 15:05 Resp 32 H 01/01/19 15:05 BP 76/34 L 01/01/19 15:05 Pulse Ox 77 L 01/01/19 15:05 - Abnormal Lab Findings Abnormal Lab Findings: Abnormal Lab Results 12/31/18 01/01/19 01/01/19 Range/Units 10:06 00:15 15:25 WBC (4.0-10.5) K/mm3 RBC (4.2-5.4) M/mm3 Hgb 12.0 L (12.5-16.0) gm/dL Hct (37.0-47.0) % MCH (27-31) pg MCHC (32-36) g/dl RDW (11.5-14.0) % Neutrophils % (Manual) (42-75) % Lymphocytes % (Manual) (20-51) % Neutrophils # (Manual) (1.3-6.0) K/mm3 Monocytes # (Manual) (0.0-1.0) k/mm3 PT (9.1-10.7) Seconds INR (Anticoag Therapy) (0.92-1.08) INR pCO2 (32.0-45.0) mmHg pO2 (83.0-108.0) mmHg Total CO2 (19.0-24.0) mmol/L Base Excess (-2.0-3.0) mmol/L ABG pH (7.35-7.45) Potassium 4.7 H (3.4-4.6) mmol/L Est GFR (Non-Af Amer) 49 L D (60-130) mL/min Random Glucose 196 H D (70-110) mg/dL Calcium 7.5 L (7.9-10.9) mg/dL ALT 11 L (19-67) U/L Alkaline Phosphatase 41 L (50-170) U/L B-Natriuretic Peptide 733 H (5-550) pg/mL Total Protein 5.1 L (6.2-8.2) gm/dL Albumin 2.3 L (3.4-5.0) gm/dl Crossmatch See Detail 01/01/19 01/01/19 01/01/19 Range/Units 15:25 15:25 15:30 WBC 25.3 H D (4.0-10.5) K/mm3 RBC 3.64 L (4.2-5.4) M/mm3 Hgb 9.8 L (12.5-16.0) gm/dL Hct 32.5 L (37.0-47.0) % MCH 26.9 L (27-31) pg MCHC 30.2 L (32-36) g/dl RDW 16.6 H (11.5-14.0) % Neutrophils % (Manual) 81 H (42-75) % Lymphocytes % (Manual) 10 L (20-51) % Neutrophils # (Manual) 20.5 H (1.3-6.0) K/mm3 Monocytes # (Manual) 2.3 H (0.0-1.0) k/mm3 PT 12.1 H (9.1-10.7) Seconds INR (Anticoag Therapy) 1.23 H (0.92-1.08) INR pCO2 63.7 H (32.0-45.0) mmHg pO2 116.5 H (83.0-108.0) mmHg Total CO2 26.7 H (19.0-24.0) mmol/L Base Excess -3.7 L (-2.0-3.0) mmol/L ABG pH 7.21 L (7.35-7.45) Potassium (3.4-4.6) mmol/L Est GFR (Non-Af Amer) (60-130) mL/min Random Glucose (70-110) mg/dL Calcium (7.9-10.9) mg/dL ALT (19-67) U/L Alkaline Phosphatase (50-170) U/L B-Natriuretic Peptide (5-550) pg/mL Total Protein (6.2-8.2) gm/dL Albumin (3.4-5.0) gm/dl Crossmatch - Exam Constitutional: Present: Other - intubated and sedated ENT Exam: Present: other - intubated Neck: Present: supple Respiratory: Present: decreased breath sounds, wheezing, No rales, No wheezing Cardiovascular/Chest: Present: regular rate, rhythm, no JVD, tachycardia Abdomen: Present: Normal bowel sounds, soft, nontender, nondistended Extremity: Present: no pedal edema, no calf tenderness Skin Exam: Present: mottled Cauti Physician Documentation - Urinary Catheter Management Urethral (Hernández) Date of Insertion: 12/31/18 Time of Insertion: 15:00 Assessment/Plan - Problems/Diagnosis (1) Acute respiratory failure requiring reintubation Problem: Acute Narrative: acute on chronic- combine hypoxemic and hypercarbic . ABG 7. 207/63.7/116/24.7/97.3 on 100 %.will continue with Ventilator at TV 400/RR12/PEEP5/Pressure support 10. She is breathing over her RR and will adjust when sedated with IV ativan and a follow up ABG. r/o Aspiration . wbc 28. will start patient on IV meropenem. (2) Atrial fibrillation with rapid ventricular response Problem: Acute Narrative: s/p electrocardioversion x 1 k is 4.7, troponin 0.03, TSH normal, EKG pending (3) Hypotension Problem: Acute Qualifiers: Hypotension type: unspecified hypotension type Qualified Code(s): I95.9 - Hypotension, unspecified Narrative: likely rate related due to AFib with RVR (4) Hip fracture, left Problem: Acute Qualifiers: Encounter type: initial encounter Fracture type: closed Qualified Code(s): S72.002A - Fracture of unspecified part of neck of left femur, initial encounter for closed fracture Narrative: s/p CRIF with cephalomedullary nail fixation (5) Anemia Problem: Acute Narrative: s/p 2 units PRBC transfusion (6) HTN (hypertension) Problem: Chronic Qualifiers: Hypertension type: essential hypertension Qualified Code(s): I10 - Essential (primary) hypertension (7) HLD (hyperlipidemia) Problem: Chronic Qualifiers: Hyperlipidemia type: unspecified Qualified Code(s): E78.5 - Hyperlipidemia, unspecified (8) Anxiety Problem: Chronic (9) Depression Problem: Chronic Qualifiers: Depression Type: unspecified Qualified Code(s): F32.9 - Major depressive disorder, single episode, unspecified (10) CAD (coronary artery disease) Problem: Chronic Qualifiers: Coronary Disease-Associated Artery/Lesion type: [place] artery [place] vs. transplanted heart: kiana heart Associated angina: with unstable angina Qualified Code(s): I25.110 - Atherosclerotic heart disease of [place] coronary artery with unstable angina pectoris (11) COPD (chronic obstructive pulmonary disease) Problem: Chronic Qualifiers: COPD type: unspecified COPD Qualified Code(s): J44.9 - Chronic obstructive pulmonary disease, unspecified
[2019-01-01] MEDS: NORMAL SALINE IV SCH (16:17)
[2019-01-01] MEDS: LORAZEPAM IV SCH (16:17)
[2019-01-01] MEDS ORDERED: ENOXAPARIN SODIUM 40 MG/0.4 ML SYRG SC SCH (16:45)
[2019-01-01] MEDS ORDERED: NORMAL SALINE 250 ML IV ONE ×5 (16:53→20:35)
[2019-01-01] MEDS: MEROPENEM 1 GM in NORMAL SALINE 100 ML IV SCH (17:32)
[2019-01-01] MEDS: SIMVASTATIN 20 MG TABLET PO SCH (17:34)
[2019-01-01] MEDS ORDERED: ceFAZolin SODIUM 1 GM in DEXTROSE 5 % IN WATER 100 ML IV SCH ×2 (18:00)
--- NOTE | 2019-01-01 18:33 | ANES ---
Anesthesia Procedure Note Procedure Note: Procedure: Arterial line placement right radial artery. Indications: Ventilated patient with labile cardiovascular status requiring close arterial blood pressure monitoring and frequent blood draws including arterial blood gas. Assessment: Patient currently ventilated and not extremely responsive, in part due to Ativan therapy. Patient is currently being ventilated and her pressures have occasionally dropped to the point where vasopressors were indicated. Currently her blood pressure is stable but quite variable by blood pressure cuff. Procedure: The right wrist was extended on a wrist/arm board and prepped with chlorhexidine. The approximate area of insertion was localized with 1% lidoca ine solution approximately 0.2 mL. The wrist was then reprepped with chlorhexidine and draped in a sterile fashion. A number 22-gauge IV catheter was inserted followed by a guidewire the 22-gauge catheter was then removed and a long 20-gauge arterial line catheter was advanced over the guidewire. The guidewire was then removed and a pressure monitor system was attached to the arterial line. A good waveform was observed a brief flush of the catheter was then performed. The catheter was then secured in place with a Tegaderm and multiple strips of clear plastic tape. Patient tolerated the procedure very well without physical response to stimulation. EBL: Less than 1 mL. No specimens, no additional medication, report given to attending RN.
[2019-01-01] MEDS: NOREPINEPHRINE BITARTRATE 4 MG in DEXTROSE 5 % IN WATER 496 ML IV PRN ×2 (19:17)
--- NOTE | 2019-01-01 19:31 | PN ---
Progess Note - Interim Date: 01/01/19 Time: 19: Narrative: 01/01/19 19:27 patient sedated and intubaed. BP dropped further despite IV boluses ad levophed drip started. CVP line attempted by surgery but was not succesful. arterial line in place by anesthesia. repeat ABG 7.29/46.6/81/21.4/94.5%.
--- NOTE | 2019-01-01 20:24 | PN ---
Dictated Progress Note - Date and Time Seen: Date: 01/01/19 Time: 20:23 - Progress Note Narrative: Vital Signs - Last Taken Temp 36.7 C 01/01/19 17:30 Pulse 88 01/01/19 19:17 Resp 33 H 01/01/19 18:20 BP 74/30 L 01/01/19 19:17 Pulse Ox 93 01/01/19 18:11 Abnormal/Pending Laboratory Last 24 HRS 01/01/19 01/01/19 01/01/19 19:22 15:30 15:25 WBC RBC Hgb Hct MCH MCHC RDW Neutrophils % (Manual) Lymphocytes % (Manual) Neutrophils # (Manual) Monocytes # (Manual) PT 12.1 H INR (Anticoag Therapy) 1.23 H pCO2 46.6 H 63.7 H pO2 81.0 L 116.5 H Total CO2 26.7 H Base Excess -5.2 L -3.7 L ABG pH 7.28 L 7.21 L Potassium Est GFR (Non-Af Amer) Random Glucose Calcium ALT Alkaline Phosphatase B-Natriuretic Peptide Total Protein Albumin Crossmatch 01/01/19 01/01/19 01/01/19 15:25 15:25 00:15 WBC 25.3 H D RBC 3.64 L Hgb 9.8 L 12.0 L Hct 32.5 L MCH 26.9 L MCHC 30.2 L RDW 16.6 H Neutrophils % (Manual) 81 H Lymphocytes % (Manual) 10 L Neutrophils # (Manual) 20.5 H Monocytes # (Manual) 2.3 H PT INR (Anticoag Therapy) pCO2 pO2 Total CO2 Base Excess ABG pH Potassium 4.7 H Est GFR (Non-Af Amer) 49 L D Random Glucose 196 H D Calcium 7.5 L ALT 11 L Alkaline Phosphatase 41 L B-Natriuretic Peptide 733 H Total Protein 5.1 L Albumin 2.3 L Crossmatch 12/31/18 10:06 WBC RBC Hgb Hct MCH MCHC RDW Neutrophils % (Manual) Lymphocytes % (Manual) Neutrophils # (Manual) Monocytes # (Manual) PT INR (Anticoag Therapy) pCO2 pO2 Total CO2 Base Excess ABG pH Potassium Est GFR (Non-Af Amer) Random Glucose Calcium ALT Alkaline Phosphatase B-Natriuretic Peptide Total Protein Albumin Crossmatch See Detail The patient is an 83-year-old female who fell sustaining a left intertrochanteric hip fracture which was fixed with a closed reduction and cephalo-medullary teodora. Postoperatively she had atrial fibrillation requiring cardioversion. Currently she is in sinus rhythm however hypotensive. Dr. Morse has requested a central line to measure central venous pressure. I discussed the procedure with the daughter the risks and possible complications of bleeding and pneumothorax were explained. After interactive discussion her questions were answered to her apparent satisfaction and she gave informed consent to placement of a subclavian vein catheter. Procedure: The patient was identified and a preprocedure timeout was observed. Central line bundle was utilized. The left clavicular area was prepped and draped in a sterile fashion. The left subclavian vein was accessed and a guidewire passed followed by a vein dilator, however the catheter would not thread over the guidewire. This was attempted twice without success. The right clavicular area was then prepped and draped in sterile fashion. The right subclavian vein was accessed on a single pass. The guidewire threaded easily and the vein dilator was advanced. Again the catheter would not thread off the wire into the vein. Having access to both sides without success the procedure was terminated. The patient tolerated procedure well without complication there was no measurable blood loss. A chest x-ray will be obtained. Reviewed and electronically signed
[2019-01-01] MEDS ORDERED: SENNOSIDES/DOCUSATE SODIUM 1 TAB TABLET PO SCH (21:00)
[2019-01-01] MEDS: CHLORHEXIDINE GLUCONATE 15 ML UDC MM SCH (21:11)
[2019-01-01] MEDS: SACCHAROMYCES BOULARDII 250 MG CAPSULE PO SCH (21:12)
[2019-01-01 21:44] LABS: Hematocrit 27.6 % (37.0-47.0); Hemoglobin 8.3 gm/dL (12.5-16.0)
[2019-01-01 21:48] LABS: Anion Gap 10.3 mmol/L (6.8-13.8); BUN/Creatinine Ratio 16.2 (9.0-21.6); Calcium * 6.7 mg/dL (7.9-10.9); Carbon Dioxide 27.1 mmol/L (24-32.6); Estimated Creat Clear 29.8; Potassium 4.4 mmol/L (3.4-4.6)
[2019-01-01 21:52] LABS: Troponin I 0.513 ng/mL (0.00-0.10)
--- NOTE | 2019-01-01 22:26 | PN ---
Progess Note - Interim Date: 01/01/19 Time: 22:24 Narrative: 01/01/19 22:24 Troponin bumped up to 0.533 likely due to increased demand ischemia from AFib with RVR, anemia ( down again to 8.3), and hypotensive episode. EKG showed Sinus tachycardia of 101. No significant ST-T wave changes from EKG on admission. Will give 1 unit of PRBC. I talked to SALVATORE Howard and told her that will continue to monitor troponin and EKG .
[2019-01-02] MEDS: NORMAL SALINE 1,000 ML IV PRN (02:10)
[2019-01-02] MEDS ORDERED: NORMAL SALINE 250 ML IV ONE (02:44)
[2019-01-02 03:43] LABS: Hematocrit 33.8 % (37.0-47.0); Hemoglobin 10.5 gm/dL (12.5-16.0); Mean Cell Volume 90.1 fl (78-100); Mean Corpuscular Hgb Conc 31.1 g/dl (32-36); Mean Platelet Volume 8.8 fl (8-12.5); Platelet Count 235 K/mm3 (150-450); Red Blood Count 3.75 M/mm3 (4.2-5.4); Red Cell Distribution Width 16.5 % (11.5-14.0); White Blood Count 21.1 K/mm3 (4.0-10.5)
[2019-01-02] MEDS: NOREPINEPHRINE BITARTRATE 4 MG in DEXTROSE 5 % IN WATER 496 ML IV PRN ×4 (03:47→09:47)
[2019-01-02] MEDS: MEROPENEM 1 GM in NORMAL SALINE 100 ML IV SCH (04:07)
[2019-01-02 04:46] LABS: Urine Bilirubin Negative (NEGATIVE); Urine Blood 250 /ul (NEGATIVE); Urine Ketone Negative (NEGATIVE); Urine Nitrite Negative (NEGATIVE); Urine Protein 30 mg/dL (NEGATIVE); Urine Specific Gravity >=1.030 SP.GR. (1.005-1.010); Urine Urobilinogen Normal (NORMAL)
[2019-01-02 04:51] LABS: Urine Appearance Clear (CLEAR); Urine Bacteria 1+; Urine Color Dark Yellow; Urine RBC 25-50 /hpf (0-5); Urine WBC 0-5 /hpf (0-5)
[2019-01-02] MEDS: LORAZEPAM IV SCH ×2 (04:55→07:24)
[2019-01-02] MEDS: NORMAL SALINE IV SCH ×2 (04:55→07:24)
[2019-01-02 05:31] LABS: Hematocrit 34.6 % (37.0-47.0); Hemoglobin 10.6 gm/dL (12.5-16.0); Mean Cell Volume 90.1 fl (78-100); Mean Corpuscular Hemoglobin 27.6 pg (27-31); Mean Corpuscular Hgb Conc 30.6 g/dl (32-36); Mean Platelet Volume 9.6 fl (8-12.5); Platelet Count 240 K/mm3 (150-450); Red Blood Count 3.84 M/mm3 (4.2-5.4); Red Cell Distribution Width 16.4 % (11.5-14.0); White Blood Count 21.4 K/mm3 (4.0-10.5)
[2019-01-02 05:37] LABS: Total Cells Counted 100
[2019-01-02 05:42] LABS: BUN/Creatinine Ratio 14.5 (9.0-21.6); Calcium * 6.9 mg/dL (7.9-10.9); Carbon Dioxide 25.3 mmol/L (24-32.6); Estimated Creat Clear 28.3; Potassium 4.3 mmol/L (3.4-4.6)
[2019-01-02 05:49] LABS: Troponin I 2.973 ng/mL (0.00-0.10)
[2019-01-02 05:53] LABS: Band 2 % (0-2.0); Lymphocyte 5 % (20-51); Monocyte 8 % (0-9); Neutrophil 85 % (42-75); Neutrophil # 18.2 K/mm3 (1.3-6.0); Platelet Estimate Normal (NORMAL)
[2019-01-02 05:54] LABS: RBC Morphology Normal (NORMAL)
[2019-01-02] MEDS: ALBUTEROL SULFATE/IPRATROPIUM 3 ML NEBU IH SCH (06:02)
[2019-01-02] MEDS: BUDESONIDE 0.5 MG/2 ML VIAL.NEB IH SCH (06:03)
[2019-01-02] MEDS: FORMOTEROL FUMARATE 20 MCG/2 ML VIAL IH SCH (06:03)
[2019-01-02] MEDS: [UNRECOGNIZED DRUG - OTHER] inhalation SCH (06:04)
[2019-01-02] MEDS: GLYCOPYRROLATE inhalation SCH (06:04)
[2019-01-02] MEDS: LEVOTHYROXINE SODIUM 75 MCG TABLET PO SCH (06:16)
[2019-01-02] MEDS ORDERED: NORMAL SALINE 500 ML IV ONE (06:46)
--- NOTE | 2019-01-02 07:02 | PN ---
Progess Note - Interim Date: 01/02/19 Time: 06:54 Narrative: 01/02/19 06:54 Patient with poor urine output. Troponin bumped up to 2.9- likely NSTEMI. EKG showed no siginificant change from admission EKG. Discussed with Erika, daughter, SALVATORE. Daughter knows that if we start her on heparin drip, her surgical site start bleeding. will transfer patient to [facility]. Discussed case with Dr. Caceres, hospitalist, [facility] and she is accepting the patient to ICU , Bed 12.
[2019-01-02] MEDS ORDERED: HEPARIN SODIUM,PORCINE 5,000 UNITS/ML VIAL IV ONE (07:03)
[2019-01-02] MEDS ORDERED: HEPARIN SODIUM,PORCINE/D5W 25,000 UNITS/500 ML BAG IV PRN (07:04)
[2019-01-02 07:30] LABS: Prothrombin Time (Patient) 11.5 Seconds (9.1-10.7)
[2019-01-02 07:33] LABS: INR 1.17 INR (0.92-1.08); Partial Thrombolplastin Time 30.1 Seconds (24-32)
--- NOTE | 2019-01-02 08:01 | DS ---
Transfer Discharge Summary - Diagnosis(s)/Problems (1) Elevated troponin Narrative: probably NSTEMI vs increased demand ischemia Problem: Acute (2) Acute respiratory failure requiring reintubation Narrative: on Ventilator- SIMV/PS, TV 450 ml/RR 14/fiO2 70%/PEEP 5/PS 10 Problem: Acute (3) Atrial fibrillation with rapid ventricular response Narrative: s/p electrovardioversion x 1 Problem: Resolved (4) Hypotension Narrative: multifactorial- hypovolemia/possible cardiogenic with NSTEMI on levophed Problem: Acute (5) Hip fracture, left Narrative: s/p CRIF with cephalomedullary nail fixation 01/01/19 Problem: Acute (6) Anemia Narrative: s/p BT 2 units before and surgery and 1 unit after surgery Problem: Acute (7) Leukocytosis Narrative: inflammatory reaction to stress of surgery vs. infection. on IV Meropenem. Problem: Acute (8) HTN (hypertension) Problem: Chronic (9) HLD (hyperlipidemia) Problem: Chronic (10) Anxiety Problem: Chronic (11) Depression Problem: Chronic (12) CAD (coronary artery disease) Narrative: h/o NSTEMI in 2006 with cath (05/29/2006)-EF 50%, NSTEMI with mild anterolateral hypokinesis, LAD diffuse irreg max 50%, D1 very small with 80% stenosis, LCX mild irreg, RCA 50% in PL branch. Stress test in 05/2008-EF73%, normal, no ischemia Problem: Chronic (13) COPD (chronic obstructive pulmonary disease) Problem: Chronic - Course Description of Stay: Lissette Brown is an 83-year-old white female patient of Dr. Sher, with past medical history of chronic obstructive pulmonary disease on home oxygen 24 hours a day, hypertension, coronary artery disease who was admitted on 12/31/2018 because of fall and left hip pain. The patient was getting out of her bathroom and tripped over her oxygen hose tube, fell down and had severe left hip pain. She was then brought to our emergency room were her x-ray showed a left intertrochanteric fracture. Her hemoglobin was 8.2 ( 10.1 on 07/2018). Her chest x-ray showed findings consistent with COPD- hyperinflation. She was then admitted for orthopedic intervention. She denies any palpitations, chest pain, but admitted to shortness of breath. She denied any complication from anesthesia or bleeding from her prior surgeries. She received 2 units of PRBC and underwent CRIF by Orthopedics on 01/01/2019 under [place]. Postoperatively her BP went up to 163/103 and got 10 mg IV hydralazine. She was extubated In the recovery but then went into AFibrillation with RVR in 120-130's. She started gettinf hypotensive and rapid response was called. She was reintubated and electrocardoverted x1. She went into NSR with 90's-105's and her BP started to go up again with IVF boluses. She was transferred to SCU. She continued to be hypotensive despite IVF boluses with poor urine and levophed drip was started. Arterial line was placed. CVP line insertion was attempted by surgery on both sides but was unsuccessful . Her WBC was elevated and while it could be due to inflammatory reaction to stress of surgery, IV meropenem was started for possible aspiration. Her troponin post AFib electrocardioversion was 0.035 and then bumped up to 2.9 this morning. Heparin drip started and patient is being transferred to [facility]. Dr. Eduarda Caceres is the accepting hospitalist. Procedures Performed: see notes below - arterial line/attempted CVP line insertion/ CRIF with cephalomedullary nail fixation - Results and Findings Results and Findings: Laboratory Results - last 24 hr 12/31/18 01/01/19 01/01/19 10:06 15:25 15:25 WBC 25.3 H D RBC 3.64 L Hgb 9.8 L Hct 32.5 L MCV 89.3 MCH 26.9 L MCHC 30.2 L RDW 16.6 H Plt Count 294 MPV 9.3 Neutrophils % (Manual) 81 H Band Neuts % (Manual) Lymphocytes % (Manual) 10 L Monocytes % (Manual) 9 Neutrophils # (Manual) 20.5 H Lymphocytes # (Manual) 2.5 Monocytes # (Manual) 2.3 H Platelet Estimate Normal RBC Morphology Normal PT INR (Anticoag Therapy) PTT ([place]) pCO2 pO2 HCO3 Total CO2 Base Excess ABG pH ABG O2 Sat (Measured) Sodium 139 Plasma Sodium 141 Potassium 4.7 H Chloride 103 Carbon Dioxide 29.3 Anion Gap 11.4 BUN 16 Creatinine 1.12 Est GFR (Non-Af Amer) 49 L D BUN/Creatinine Ratio 14.3 Random Glucose 196 H D Calcium 7.5 L Calcium Adj for Albumin 8.5 Total Bilirubin 0.4 AST 18 ALT 11 L Alkaline Phosphatase 41 L Troponin I 0.037 B-Natriuretic Peptide 733 H Total Protein 5.1 L Albumin 2.3 L TSH (Reflex) 1.522 Urine Color Urine Appearance Urine pH Ur Specific [place] Urine Protein Urine Glucose (UA) Urine Ketones Urine Blood Urine Nitrate Urine Bilirubin Prot Sulfosalicylic Acd Urine Urobilinogen Ur Leukocyte Esterase Urine RBC Urine WBC Ur Epithelial Cells Urine Bacteria Urine Culture Comments Blood Type A Positive Antibody Screen Negative Crossmatch See Detail 01/01/19 01/01/19 01/01/19 15:25 15:30 19:22 WBC RBC Hgb Hct MCV MCH MCHC RDW Plt Count MPV Neutrophils % (Manual) Band Neuts % (Manual) Lymphocytes % (Manual) Monocytes % (Manual) Neutrophils # (Manual) Lymphocytes # (Manual) Monocytes # (Manual) Platelet Estimate RBC Morphology PT 12.1 H INR (Anticoag Therapy) 1.23 H PTT ([place]) 27.0 pCO2 63.7 H 46.6 H pO2 116.5 H 81.0 L HCO3 24.7 21.4 Total CO2 26.7 H 22.8 Base Excess -3.7 L -5.2 L ABG pH 7.21 L 7.28 L ABG O2 Sat (Measured) 97.3 94.5 Sodium Plasma Sodium Potassium Chloride Carbon Dioxide Anion Gap BUN Creatinine Est GFR (Non-Af Amer) BUN/Creatinine Ratio Random Glucose Calcium Calcium Adj for Albumin Total Bilirubin AST ALT Alkaline Phosphatase Troponin I B-Natriuretic Peptide Total Protein Albumin TSH (Reflex) Urine Color Urine Appearance Urine pH Ur Specific [place] Urine Protein Urine Glucose (UA) Urine Ketones Urine Blood Urine Nitrate Urine Bilirubin Prot Sulfosalicylic Acd Urine Urobilinogen Ur Leukocyte Esterase Urine RBC Urine WBC Ur Epithelial Cells Urine Bacteria Urine Culture Comments Blood Type Antibody Screen Crossmatch 01/01/19 01/01/19 01/01/19 20:38 21:30 21:30 WBC RBC Hgb 8.3 L Hct 27.6 L MCV MCH MCHC RDW Plt Count MPV Neutrophils % (Manual) Band Neuts % (Manual) Lymphocytes % (Manual) Monocytes % (Manual) Neutrophils # (Manual) Lymphocytes # (Manual) Monocytes # (Manual) Platelet Estimate RBC Morphology PT INR (Anticoag Therapy) PTT ([place]) pCO2 49.5 H pO2 80.9 L HCO3 22.2 Total CO2 23.7 Base Excess -4.6 L ABG pH 7.27 L ABG O2 Sat (Measured) 94.3 Sodium 139 Plasma Sodium 140 Potassium 4.4 Chloride 106 Carbon Dioxide 27.1 Anion Gap 10.3 BUN 18 Creatinine 1.11 Est GFR (Non-Af Amer) 50 L BUN/Creatinine Ratio 16.2 Random Glucose 174 H Calcium 6.7 L Calcium Adj for Albumin Total Bilirubin AST ALT Alkaline Phosphatase Troponin I 0.513 H* B-Natriuretic Peptide Total Protein Albumin TSH (Reflex) Urine Color Urine Appearance Urine pH Ur Specific [place] Urine Protein Urine Glucose (UA) Urine Ketones Urine Blood Urine Nitrate Urine Bilirubin Prot Sulfosalicylic Acd Urine Urobilinogen Ur Leukocyte Esterase Urine RBC Urine WBC Ur Epithelial Cells Urine Bacteria Urine Culture Comments Blood Type Antibody Screen Crossmatch 01/02/19 01/02/19 01/02/19 03:33 04:10 05:15 WBC 21.1 H 21.4 H RBC 3.75 L 3.84 L Hgb 10.5 L 10.6 L Hct 33.8 L 34.6 L MCV 90.1 90.1 MCH 28.0 27.6 MCHC 31.1 L 30.6 L RDW 16.5 H 16.4 H Plt Count 235 240 MPV 8.8 9.6 Neutrophils % (Manual) 85 H Band Neuts % (Manual) 2 Lymphocytes % (Manual) 5 L Monocytes % (Manual) 8 Neutrophils # (Manual) 18.2 H Lymphocytes # (Manual) 1.1 L Monocytes # (Manual) 1.7 H Platelet Estimate Normal RBC Morphology Normal PT INR (Anticoag Therapy) PTT ([place]) pCO2 pO2 HCO3 Total CO2 Base Excess ABG pH ABG O2 Sat (Measured) Sodium Plasma Sodium Potassium Chloride Carbon Dioxide Anion Gap BUN Creatinine Est GFR (Non-Af Amer) BUN/Creatinine Ratio Random Glucose Calcium Calcium Adj for Albumin Total Bilirubin AST ALT Alkaline Phosphatase Troponin I B-Natriuretic Peptide Total Protein Albumin TSH (Reflex) Urine Color Dark yellow Urine Appearance Clear Urine pH 6.0 Ur Specific [place] >=1.030 Urine Protein 30 H Urine Glucose (UA) Negative Urine Ketones Negative Urine Blood 250 H Urine Nitrate Negative Urine Bilirubin Negative Prot Sulfosalicylic Acd 3+ H Urine Urobilinogen Normal Ur Leukocyte Esterase Negative Urine RBC 25-50 H Urine WBC 0-5 Ur Epithelial Cells None seen Urine Bacteria 1+ H Urine Culture Comments Culture to follow Blood Type Antibody Screen Crossmatch 01/02/19 01/02/19 05:15 05:55 WBC RBC Hgb Hct MCV MCH MCHC RDW Plt Count MPV Neutrophils % (Manual) Band Neuts % (Manual) Lymphocytes % (Manual) Monocytes % (Manual) Neutrophils # (Manual) Lymphocytes # (Manual) Monocytes # (Manual) Platelet Estimate RBC Morphology PT INR (Anticoag Therapy) PTT ([place]) pCO2 52.1 H pO2 93.6 HCO3 20.9 L Total CO2 22.5 Base Excess -6.9 L ABG pH 7.22 L ABG O2 Sat (Measured) 95.6 Sodium 139 Plasma Sodium 140 Potassium 4.3 Chloride 106 Carbon Dioxide 25.3 Anion Gap 12.0 BUN 17 Creatinine 1.17 Est GFR (Non-Af Amer) 47 L BUN/Creatinine Ratio 14.5 Random Glucose 173 H Calcium 6.9 L Calcium Adj for Albumin Total Bilirubin AST ALT Alkaline Phosphatase Troponin I 2.973 H* B-Natriuretic Peptide Total Protein Albumin TSH (Reflex) Urine Color Urine Appearance Urine pH Ur Specific [place] Urine Protein Urine Glucose (UA) Urine Ketones Urine Blood Urine Nitrate Urine Bilirubin Prot Sulfosalicylic Acd Urine Urobilinogen Ur Leukocyte Esterase Urine RBC Urine WBC Ur Epithelial Cells Urine Bacteria Urine Culture Comments Blood Type Antibody Screen Crossmatch - Medications Medications: Active Medications Albuterol/Ipratropium (Duoneb 2.5-0.5mg/3ml Soln) 3 ml IH QIDRT [facility] Stop: 01/30/19 15:01 Last Admin: 01/02/19 06:02 Dose: 3 ml Documented by: Alprazolam (Xanax) 0.5 mg PO TID PRN PRN Reason: restlessness/anxiety Stop: 01/30/19 12:57 Last Admin: 12/31/18 23:28 Dose: 0.5 mg Documented by: Amlodipine Besylate (Norvasc) 5 mg PO DAILY [facility] Stop: 01/31/19 09:01 Last Admin: 01/01/19 09:52 Dose: Not Given Documented by: Budesonide (Pulmicort Respules) 0.5 mg IH BIDRT [facility] Stop: 01/30/19 19:01 Last Admin: 01/02/19 06:03 Dose: 0.5 mg Documented by: Calcium/Vitamin D (Calcarb 600 With Vitamin D) 1 tab PO DAILY [facility] Stop: 01/31/19 09:01 Last Admin: 01/01/19 09:51 Dose: Not Given Documented by: Chlorhexidine Gluconate (Periogard Oral Rinse 0.12%) 15 ml MM DAILY [facility] Stop: 01/31/19 21:01 Last Admin: 01/01/19 21:11 Dose: 15 ml Documented by: Clopidogrel Bisulfate (Plavix) 75 mg PO DAILY [facility] Stop: 01/31/19 09:01 Last Admin: 01/01/19 09:59 Dose: Not Given Documented by: Clorazepate Dipotassium (Tranxene) 7.5 mg PO TID [facility] Stop: 01/30/19 13:01 Last Admin: 01/01/19 17:35 Dose: Not Given Documented by: Escitalopram Oxalate (Lexapro) 10 mg PO DAILY [facility] Stop: 01/31/19 09:01 Last Admin: 01/01/19 09:51 Dose: Not Given Documented by: Famotidine (Pepcid) 20 mg PO DAILY [facility] Stop: 01/31/19 09:01 Last Admin: 01/01/19 09:52 Dose: Not Given Documented by: Formoterol Fumarate (Perforomist) 20 mcg IH BIDRT [facility] Stop: 01/30/19 19:01 Last Admin: 01/02/19 06:03 Dose: 20 mcg Documented by: Lorazepam 10 mg/ Sodium (Chloride) 50 mls @ 5 mls/hr IV TITR [facility]; Protocol Stop: 01/31/19 16:01 Last Admin: 01/02/19 07:24 Dose: 1 mg/hr, 5 mls/hr Documented by: Pantoprazole Sodium 40 mg/ (Sodium Chloride) 100 mls @ 400 mls/hr IV Q24H [facility] Stop: 01/31/19 16:01 Last Infusion: 01/01/19 16:38 Dose: Infused Documented by: Sodium Chloride (Sodium Chloride 0.9%) 1,000 mls @ 150 mls/hr IV .Q6H40M PRN PRN Reason: HYDRATION Stop: 01/31/19 15:54 Last Admin: 01/02/19 02:10 Dose: 150 mls/hr Documented by: Meropenem 1 gm/ Sodium (Chloride) 100 mls @ 200 mls/hr IV Q12H [facility]; Protocol Stop: 01/31/19 16:46 Last Infusion: 01/02/19 04:37 Dose: Infused Documented by: Norepinephrine Bitartrate 4 mg (/ Dextrose/Water) 500 mls @ 3.75 mls/hr IV TITR PRN; Protocol PRN Reason: Hypotension Stop: 01/31/19 18:51 Last Titration: 01/02/19 06:46 Dose: 11.5 mcg/min, 86.25 mls/hr Documented by: Isosorbide Mononitrate (Imdur) 180 mg PO DAILY [facility] Stop: 01/31/19 09:01 Last Admin: 01/01/19 09:51 Dose: Not Given Documented by: Isosorbide Mononitrate (Imdur) 60 mg PO HS [facility] Stop: 01/30/19 21:01 Last Admin: 01/01/19 21:11 Dose: Not Given Documented by: Levothyroxine Sodium (Synthroid) 75 mcg PO DAILY@0700 [facility] Stop: 01/31/19 09:01 Last Admin: 01/02/19 06:16 Dose: Not Given Documented by: Metoprolol Succinate (Toprol Xl) 100 mg PO DAILY [facility] Stop: 01/31/19 09:01 Last Admin: 01/01/19 10:00 Dose: Not Given Documented by: Morphine Sulfate (Morphine Sulfate) 1 mg IV Q1H PRN PRN Reason: Severe Pain (pain scale 7-10) Stop: 01/31/19 13:05 Last Admin: 01/01/19 17:04 Dose: 1 mg Documented by: Morphine Sulfate (Morphine Sulfate) 5 mg IV Q10M PRN PRN Reason: Analgesia Stop: 01/31/19 15:53 Last Admin: 01/02/19 00:12 Dose: 5 mg Documented by: (Glycopyrrolate/Neb. Accessories [Lonhala Magnair 25 Mcg Refill] 25 mcg inhalation BIDRT [facility] Stop: 01/30/19 19:01 Last Admin: 01/02/19 06:04 Dose: Not Given Documented by: Prednisone (Prednisone) 10 mg PO SuTuThSa@0900 [facility] Stop: 01/31/19 09:01 Last Admin: 01/01/19 09:59 Dose: Not Given Documented by: Ranolazine (Ranexa) 500 mg PO BID [facility] Stop: 01/30/19 21:01 Last Admin: 01/01/19 21:12 Dose: Not Given Documented by: Saccharomyces Boulardii (Florastor) 250 mg PO BID [facility] Stop: 01/31/19 21:01 Last Admin: 01/01/19 21:12 Dose: Not Given Documented by: Senna/Docusate Sodium (Senokot-S) 2 tab PO HS [facility] Stop: 01/31/19 21:01 Last Admin: 01/01/19 21:12 Dose: Not Given Documented by: Simvastatin (Zocor) 20 mg PO QPM [facility] Stop: 01/30/19 17:01 Last Admin: 01/01/19 17:34 Dose: Not Given Documented by: Discontinued Medications Albuterol Sulfate (Albuterol Sulfate 2.5 Mg/0.5ml) 2.5 mg IH ONCE ONE Stop: 01/01/19 14:05 Last Admin: 01/01/19 14:15 Dose: 2.5 mg Documented by: Azithromycin (Zithromax) 250 mg PO MoWeFr@0900 [facility]; Protocol Stop: 01/05/19 15:01 Last Admin: 12/31/18 15:19 Dose: 250 mg Documented by: Cefazolin Sodium (Ancef) 1 gm IV ONCE ONE; Protocol Stop: 01/01/19 12:37 Last Admin: 01/01/19 12:05 Dose: 1 gm Documented by: Furosemide (Lasix) 20 mg IV PRN PRN PRN Reason: GIVE AFTER FIRST UNIT OF BLOOD Stop: 12/31/18 23:59 Last Admin: 12/31/18 19:46 Dose: 20 mg Documented by: Furosemide (Lasix) 20 mg IV ONCE ONE Stop: 01/01/19 14:03 Last Admin: 01/01/19 14:08 Dose: 20 mg Documented by: Sodium Chloride (Sodium Chloride 0.9%) 1,000 mls @ 125 mls/hr IV .Q8H PRN PRN Reason: HYDRATION Stop: 01/30/19 11:06 Last Infusion: 01/01/19 07:27 Dose: Infused Documented by: Dextrose/Sodium Chloride (Dextrose 5%-0.45%Ns) 1,000 mls @ 75 mls/hr IV .[id number] PRN PRN Reason: HYDRATION Stop: 01/31/19 06:04 Last Infusion: 01/01/19 12:30 Dose: Infused Documented by: Lactated Ringer's (Lactated Ringers) 1,000 mls @ 30 mls/hr IV .Q24H PRN PRN Reason: HYDRATION Stop: 01/31/19 13:55 Last Admin: 01/01/19 12:30 Dose: 30 mls/hr Documented by: Sodium Chloride (Sodium Chloride 0.9%) 250 mls @ 999 mls/hr IV .Q16M ONE Stop: 01/01/19 17:08 Last Infusion: 01/01/19 17:12 Dose: Infused Documented by: Sodium Chloride (Sodium Chloride 0.9%) 250 mls @ 999 mls/hr IV .Q16M ONE Stop: 01/01/19 17:29 Last Infusion: 01/01/19 17:32 Dose: Infused Documented by: Sodium Chloride (Sodium Chloride 0.9%) 250 mls @ 999 mls/hr IV .Q16M ONE Stop: 01/01/19 18:52 Last Admin: 01/01/19 19:11 Dose: Not Given Documented by: Sodium Chloride (Sodium Chloride 0.9%) 250 mls @ 999 mls/hr IV .Q16M ONE Stop: 01/01/19 20:49 Last Infusion: 01/01/19 21:43 Dose: Infused Documented by: Sodium Chloride (Sodium Chloride 0.9%) 250 mls @ 999 mls/hr IV .Q16M ONE Stop: 01/01/19 20:50 Last Infusion: 01/01/19 21:27 Dose: Infused Documented by: Sodium Chloride (Sodium Chloride 0.9%) 250 mls @ 999 mls/hr IV .Q16M ONE Stop: 01/02/19 02:59 Last Admin: 01/02/19 02:47 Dose: 999 mls/hr Documented by: Ipratropium [place] (Atrovent) 0.5 mg IH ONCE ONE Stop: 01/01/19 15:54 Last Admin: 01/01/19 15:30 Dose: 0.5 mg Documented by: Lorazepam (Ativan) 1 mg IV ONCE ONE Stop: 01/01/19 15:53 Last Admin: 01/01/19 15:56 Dose: 1 mg Documented by: Lorazepam (Ativan) 1 mg IV ONCE ONE Stop: 01/01/19 15:58 Last Admin: 01/01/19 16:04 Dose: 1 mg Documented by: Lorazepam (Ativan) 1 mg IV ONCE ONE Stop: 01/01/19 16:16 Last Admin: 01/01/19 17:35 Dose: Not Given Documented by: Morphine Sulfate (Morphine Sulfate) 2 mg IV ONCE ONE Stop: 12/31/18 09:59 Last Admin: 12/31/18 10:03 Dose: 2 mg Documented by: Morphine Sulfate (Morphine Sulfate) 2 mg IV ONCE ONE Stop: 12/31/18 10:37 Last Admin: 12/31/18 10:43 Dose: 2 mg Documented by: Morphine Sulfate (Morphine Sulfate) 2 mg IV Q1H PRN PRN Reason: Analgesia Stop: 01/30/19 11:07 Last Admin: 01/01/19 06:48 Dose: 2 mg Documented by: Morphine Sulfate (Morphine Sulfate) 1 mg IV ONCE ONE Stop: 01/01/19 14:03 Last Admin: 01/01/19 14:08 Dose: 1 mg Documented by: Morphine Sulfate (Morphine Sulfate) 1 mg IV ONCE ONE Stop: 01/01/19 14:18 Last Admin: 01/01/19 14:17 Dose: 1 mg Documented by: - Disposition Disposition: Short Term Hospital Inpatient Condition: Serious Discharge Date: 01/02/19 Discharge Time: 10:35
[2019-01-02] MEDS: CALCIUM CARBONATE/VITAMIN D3 1 TAB TABLET PO SCH (08:37)
[2019-01-02] MEDS: SACCHAROMYCES BOULARDII 250 MG CAPSULE PO SCH (08:37)
[2019-01-02] MEDS: amLODIPine BESYLATE 5 MG TABLET PO SCH (08:38)
[2019-01-02] MEDS: ISOSORBIDE MONONITRATE 60 MG TAB.SR.24H PO SCH (08:38)
[2019-01-02] MEDS: FAMOTIDINE 20 MG TABLET PO SCH (08:38)
[2019-01-02] MEDS: ESCITALOPRAM OXALATE 10 MG TAB PO SCH (08:38)
[2019-01-02] MEDS: CHLORHEXIDINE GLUCONATE 15 ML UDC MM SCH (08:39)
[2019-01-02] MEDS: CLOPIDOGREL BISULFATE 75 MG TABLET PO SCH (08:39)
[2019-01-02] MEDS: CLORAZEPATE DIPOTASSIUM 3.75 MG TABLET PO SCH (08:39)
[2019-01-02] MEDS: METOPROLOL SUCCINATE 100 MG TABLET.SA PO SCH (08:39)
--- NOTE | 2019-01-02 08:45 | PN ---
Progesdaryl Note - Interim Date: 01/02/19 Time: 07:45 Narrative: 01/02/19 08:43 83-year-old female postop day 1 status post left cephalo-medullary nailing left intertrochanteric femur fracture. Postoperatively in recovery patient had significant decrease in oxygenation, her rhythm changed to a atrial fibrillation, this required cardioversion, patient was reintubated postoperatively. She was taken to the SICU. Patient has continued on the ventilator overnight, she is currently stable. Exam reveals mild serosanguineous blood-tinged drainage on her dressings, distal capillary refill brisk, due to intubation unable to further perform testing. Patient's plan to be transferred to [facility] for further care. The patient's ventilator status changes, she can be weightbearing as tolerated. Pain control PRN. Consult PT outpatient clinic for any further questions or concerns. She could follow-up in 2 weeks for staple removal if status improves.
[2019-01-02] MEDS: MORPHINE SULFATE 2 MG/ML DISP.SYRIN IV PRN ×2 (08:51→09:59)
[2019-01-02] MEDS ORDERED: CHLORHEXIDINE GLUCONATE 15 ML UDC MM SCH ×3 (09:00)
[2019-01-02 10:36] VITALS: BP 131/55
[2019-01-02] MEDS ORDERED: ENOXAPARIN SODIUM 40 MG/0.4 ML SYRG SC SCH (12:07)
== END 2019-01-02 10:33 | disposition short-term general hospital (02) | DRG 480 ==
LOC: ER 09:46 → MS 10:38
PROVIDERS: ADMIT Internal Medicine; ATTEND Internal Medicine
DX: F32.9 Major depressive disorder, single episode, unspecified; J44.9 Chronic obstructive pulmonary disease, unspecified; D62 Acute posthemorrhagic anemia; Z91.81 History of falling; I25.2 Old myocardial infarction; J96.21 Acute and chronic respiratory failure with hypoxia; I95.9 Hypotension, unspecified; I10 Essential (primary) hypertension; S72.102A Unspecified trochanteric fracture of left femur, initial encounter for closed fracture; I97.191 Other postprocedural cardiac functional disturbances following other surgery; F41.9 Anxiety disorder, unspecified; I21.A1 Myocardial infarction type 2; J96.11 Chronic respiratory failure with hypoxia; I25.10 Atherosclerotic heart disease of native coronary artery without angina pectoris; I48.2 Chronic atrial fibrillation; W01.0XXA Fall on same level from slipping, tripping and stumbling without subsequent striking against object, initial encounter
CPT/HCPCS: 36415; 36600; 71010; 71045; 71100; 73502; 80048; 80053; 81001; 82607; 82728; 82746; 82803; 83519; 83540; 83550; 83880; 84443; 84466; 84484; 85007; 85014; 85018; 85025; 85027; 85610; 85730; 86850; 87040; 87086; 93005; 94002; 94003; 94640; 94660; 94664; 96374; 99284; P9016